=== PATIENT | male | born 1995 | race Hispanic/Latino ===

== ENCOUNTER 2020-07-05 16:10 | Emergency (ER) | payer SELFPAY ==
--- OUTSIDE RECORDS SUMMARY | 2020-07-05 16:13 | XMS REPORT | Continuity of Care Document ---
:1995 Author Organization [facility] t Address [address] [place] [address] Care Team Providers Name Role Phone Rolo Ivory Attending Clinician Problems This patient has no known problems. Allergies, Adverse Reactions, Alerts This patient has no known allergies or adverse reactions. Medications This patient has no known medications. Procedures This patient has no known procedures. Encounters Start End Encounter Admission Attending Care Care Encounter Source Date/Time Date/Time Type Type Clinicians Facility Department ID 2020-05-08 2020-05-08 [id number] 13:23:37 13:43:37 Care [facility] [id number] [place] [id number] [phone] [address] Results This patient has no known results.
--- NOTE | 2020-07-05 17:15 | ER ---
Nurse's Notes [facility] Name: Huseyin Winkler Age: 25 yrs Sex: Male : 1995 Arrival Date: 07/05/2020 Time: 16:13 Bed Waiting Private MD: Diagnosis: Presentation: 07/05 17:00 Chief complaint: Patient states: "i am feeling out of it. I get dizzy when I turn my jd3 head, and I just feel out of it man.". Coronavirus screen: At this time, the client does not indicate any symptoms associated with coronavirus-19. Ebola Screen: Patient negative for fever greater than or equal to 101.5 degrees Fahrenheit, and additional compatible Ebola Virus Disease symptoms. Initial Sepsis Screen: Does the patient meet any 2 criteria? No. Patient's initial sepsis screen is negative. Does the patient have a suspected source of infection? No. Patient's initial sepsis screen is negative. Risk Assessment: Do you want to hurt yourself or someone else? Patient reports no desire to harm self or others. Note pt reports history of A-fib. Onset of symptoms was July 05, 2020. 17:00 Method Of Arrival: Ambulatory jd3 17:00 Acuity: MIAN 3 jd3 17:13 Note pt reported during triage not wanting to wait. pt eloped. jd3 Historical: - Allergies: 17:12 No Known Allergies; jd3 - Home Meds: 17:12 None [Active]; jd3 - PMHx: 17:12 Atrial Fib; jd3 - PSHx: 17:12 None; jd3 - Immunization history:: Adult Immunizations unknown. - Social history:: Smoking status: unknown. Vital Signs: 17:12 BP 120 / 66; Pulse 62; Resp 17 S; Temp 97.6(TE); Pulse Ox 99% on R/A; jd3 ED Course: 16:13 Patient arrived in ED. as 17:03 Triage completed. jd3 17:13 Arm band placed on. jd3 17:13 EKG completed in triage. Results shown to MD. itzel Administered Medications: No medications were administered Outcome: 17:14 Patient left the ED. jd3 Signatures: Crystal Yusuf Jonathon RN RN jdavid
[2020-07-05 17:21] VITALS: BP 120/66; TEMP 97.6; O2SAT 99
--- NOTE | 2020-07-06 17:43 | EKG ---
Test Date: 2020-07-05 Test Time: 17:08:20 Quality Engineering Manager: LAKHWINDER MEASUREMENT RESULTS: Intervals: Rate: 60 KS: 166 QRSD: 90 QT: 358 QTc: 358 [place]: P: 41 KS: 166 QRS: 38 T: 33 INTERPRETIVE STATEMENTS: Normal sinus rhythm with sinus arrhythmia Possible Anterior infarct, age undetermined Abnormal ECG No previous ECG available for comparison Electronically Signed On 07-06-20 17:40:19 CDT by Fernie Matos
== END 2020-07-05 17:14 | disposition left against medical advice (07) ==
LOC: ER 16:10
DX: Z53.21 Procedure and treatment not carried out due to patient leaving prior to being seen by health care provider (principal)
CPT/HCPCS: 93005; 99281

== ENCOUNTER 2020-11-14 02:15 | Emergency (ER) | payer SELFPAY ==
[2020-11-14 03:10] LABS: Absolute Lymphocytes (CBC) 4.6 K/uL (0.7-4.9); Basophils % 0.5 % (0-1.3); Hematocrit 43.1 % (39.6-49.0); Lymphocytes % 47.5 % (15.3-44.8); MPV 8.3 fL (7.6-11.3); RBC Red Blood Cell Count 4.78 M/uL (4.33-5.43)
[2020-11-14 03:11] LABS: Protime INR 1.03
[2020-11-14 03:16] LABS: Urine Blood Negative (Negative); Urine Glucose Negative (Negative); Urine Protein Negative (Negative)
[2020-11-14 03:20] LABS: ALT/SGPT 22 U/L (12-78); AST/SGOT 11 U/L (15-37); Albumin 4.2 g/dL (3.4-5.0); Alkaline Phosphatase 95 U/L (45-117); BUN Blood Urea Nitrogen 13 mg/dL (7-18); Bicarbonate 28 mmol/L (21-32); Bilirubin Direct 0.1 mg/dL (0-0.2); Bilirubin Total 0.3 mg/dL (0.2-1.0); Glucose Level 186 mg/dL (74-106); Potassium 3.3 mmol/L (3.5-5.1); Protein, Total 7.6 g/dL (6.4-8.2); Sodium Level 141 mmol/L (136-145)
[2020-11-14] MEDS ORDERED: NA CHLORIDE 0.9% 1,000 ML ONE (03:20)
[2020-11-14] MEDS ORDERED: DIPHENHYDRAMINE 50 MG/ML VIAL ONE (03:20)
[2020-11-14] MEDS ORDERED: METOCLOPRAMIDE 10 MG/2mL INJ ONE (03:20)
[2020-11-14 03:50] LABS: Barbiturates NEGATIVE (NEGATIVE); Benzodiazepines NEGATIVE (NEGATIVE); Cocaine NEGATIVE (NEGATIVE); METHAMPHETAM NEGATIVE (NEGATIVE); Methadone NEGATIVE (NEGATIVE); Opiates NEGATIVE (NEGATIVE); Phencyclidine NEGATIVE (NEGATIVE); THC Cannibis POSITIVE (NEGATIVE)
[2020-11-14] MEDS ORDERED: KETOROLAC 30 MG/ML INJ ONE (04:28)
--- NOTE | 2020-11-14 05:03 | EDPHYS ---
Physician Documentation [facility] Name: Huseyin Winkler Age: 25 yrs Sex: Male : 1995 Arrival Date: 11/14/2020 Time: 02:18 Bed 7 Private MD: ED Physician Akil Boyer HPI: 11/14 02:51 This 25 yrs old Male presents to ER via Ambulatory with complaints of mh7 Headache, Jaw Pain. 02:51 The patient complains of pain to the Left side of head and face. The patient describes mh7 the headache as intermittent, throbbing. Onset: The symptoms/episode began/occurred 2 day(s) ago. Associated signs and symptoms: Pertinent positives: Photophobia Tooth pain, Pertinent negatives: altered mental status, dizziness, fever, malaise, nausea, neck stiffness, paresthesias, rash, sinus congestion, sinus tenderness, vision changes, vision loss, vomiting, weakness, vertigo. Severity of symptoms: At its worst the pain was moderate, yesterday, in the emergency department the pain is unchanged. Headache History: The patient has had previous headaches and this one is similar to previous episodes. The symptoms are alleviated by nothing. the symptoms are aggravated by lights, Touching tooth or biting down. 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 - Social history:: Smoking status: Patient reports the use of cigarette tobacco products, smokes one-half pack cigarettes per day. ROS: 02:51 Constitutional: Negative for fever, chills, and weight loss, Neck: Negative for injury, mh7 pain, and swelling, Cardiovascular: Negative for chest pain, palpitations, and edema, Respiratory: Negative for shortness of breath, cough, wheezing, and pleuritic chest pain, Abdomen/GI: Negative for abdominal pain, nausea, vomiting, diarrhea, and constipation, Back: Negative for injury and pain, : Negative for injury, bleeding, discharge, and swelling, MS/Extremity: Negative for injury and deformity, Skin: Negative for injury, rash, and discoloration. 02:51 Psych: Negative for depression, anxiety, suicide ideation, homicidal ideation, and hallucinations, Allergy/Immunology: Negative for hives, rash, and allergies, Endocrine: Negative for neck swelling, polydipsia, polyuria, polyphagia, and marked weight changes, Hematologic/Lymphatic: Negative for swollen nodes, abnormal bleeding, and unusual bruising. 02:51 Neuro: Negative for altered mental status, dizziness, gait disturbance, hearing loss, loss of consciousness, numbness, seizure activity, speech changes, syncope, near syncope, tingling, tinnitus, tremor, visual changes, weakness. Exam: 02:51 Head/Face: Normocephalic, atraumatic. Eyes: Pupils equal round and reactive to light, mh7 extra-ocular motions intact. Lids and lashes normal. Conjunctiva and sclera are non-icteric and not injected. Cornea within normal limits. Periorbital areas with no swelling, redness, or edema. 02:51 Neck: Trachea midline, no thyromegaly or masses palpated, and no cervical lymphadenopathy. Supple, full range of motion without nuchal rigidity, or vertebral point tenderness. No Meningismus. Chest/axilla: Normal chest wall appearance and motion. Nontender with no deformity. No lesions are appreciated. Cardiovascular: Regular rate and rhythm with a normal S1 and S2. No gallops, murmurs, or rubs. Normal PMI, no JVD. No pulse deficits. Respiratory: Lungs have equal breath sounds bilaterally, clear to auscultation and percussion. No rales, rhonchi or wheezes noted. No increased work of breathing, no retractions or nasal flaring. Abdomen/GI: Soft, non-tender, with normal bowel sounds. No distension or tympany. No guarding or rebound. No evidence of tenderness throughout. Back: No spinal tenderness. No costovertebral tenderness. Full range of motion. Skin: Warm, dry with normal turgor. Normal color with no rashes, no lesions, and no evidence of cellulitis. MS/ Extremity: Pulses equal, no cyanosis. Neurovascular intact. Full, normal range of motion. Neuro: Awake and alert, GCS 15, oriented to person, place, time, and situation. Cranial nerves II-XII grossly intact. Motor strength 5/5 in all extremities. Sensory grossly intact. Cerebellar exam normal. Normal gait. 02:51 Psych: Awake, alert, with orientation to person, place and time. Behavior, mood, and affect are within normal limits. 02:51 Constitutional: The patient appears in no acute distress, alert, awake, uncomfortable. 02:51 Constitutional: The patient appears anxious. 02:51 ENT: Mouth: is normal, Posterior pharynx: is normal, Dental exam: dental caries, that is mild, diffusely, fractured teeth are noted, not appreciated, gum swelling, not appreciated, pain, that is moderate, specifically in the lower left second bicuspid (#20), Voice: is normal, Breath odor: is normal. Vital Signs: 02:25 BP 148 / 97; Pulse 66; Resp 18; Pulse Ox 99% on R/A; Weight 88.45 kg (R); Height 5 ft. lp1 11 in. (180.34 cm); Pain 10/10; 03:45 BP 118 / 64; Pulse 76; Resp 18; Pulse Ox 99% on R/A; Pain 5/10; wg 04:00 BP 115 / 61; Pulse 70; Resp 18; Pulse Ox 99% on R/A; Pain 2/10; wg 02:25 Body Mass Index 27.20 (88.45 kg, 180.34 cm) lp1 Glenys Coma Score: 04:59 Eye Response: spontaneous(4). Verbal Response: oriented(5). Motor Response: obeys mh7 commands(6). Total: 15. MDM: 04:59 Differential diagnosis: cluster headache, intracerebral hemorrhage, migraine, tension mh7 headache. Data reviewed: vital signs, nurses notes, lab test result(s), CBC, electrolytes, urinalysis, urine drug screen, EKG, radiologic studies, CT scan. Data interpreted: Pulse oximetry: on room air is 99 %. Interpretation: normal. Counseling: I had a detailed discussion with the patient and/or guardian regarding: the historical points, exam findings, and any diagnostic results supporting the discharge/admit diagnosis, lab results, radiology results, the need for outpatient follow up, a dentist, an client experience manager, to return to the emergency department if symptoms worsen or persist or if there are any questions or concerns that arise at home. Response to treatment: the patient's symptoms have resolved after treatment, the patient's blood pressure is in an acceptable range, mental status has returned to baseline, the patient no longer shows bradycardia, the patient is not short of breath, the patient is not tachycardic, the patient's pain is gone, the patient's temperature has normalized. 05:02 Patient medically screened. [facility] 11/14 02:50 Order name: CBC with Diff; Complete Time: 03:36 [facility] 11/14 02:50 Order name: Basic Metabolic Panel; Complete Time: 03:36 [facility] 11/14 02:50 Order name: LFT's; Complete Time: 03:36 [facility] 11/14 02:50 Order name: Protime (+inr); Complete Time: 03:36 [facility] 11/14 02:50 Order name: Ptt, Activated; Complete Time: 03:36 [facility] 11/14 02:50 Order name: UDS; Complete Time: 03:55 [facility] 11/14 02:50 Order name: EKG; Complete Time: 02:50 [facility] 11/14 02:50 Order name: CT Head Brain wo Cont [facility] 11/14 02:50 Order name: CT Facial Bones W/O Con [facility] 11/14 03:16 Order name: Urine Dipstick-Ancillary; Complete Time: 03:36 [facility] 11/14 02:50 Order name: Urine Dipstick-Ancillary (obtain specimen); Complete Time: 03:09 [facility] 11/14 02:50 Order name: EKG - Nurse/Tech; Complete Time: 03:09 [facility] Administered Medications: 03:04 Drug: Reglan (metoCLOPramide) 10 mg Route: IVP; Site: right antecubital; cw2 05:17 Follow up: Response: No adverse reaction ea 03:04 Drug: Benadryl (diphenhydrAMINE) 50 mg Route: IVP; Site: right antecubital; cw2 05:17 Follow up: Response: No adverse reaction ea 03:05 Drug: NS 0.9% 1000 ml Route: IV; Rate: 1000 ml; Site: right antecubital; cw2 05:17 Follow up: Response: No adverse reaction; IV Status: Completed infusion; IV Intake: ea 1000ml 04:04 Drug: Ketorolac 30 mg Route: IVP; Site: right antecubital; cw2 05:17 Follow up: Response: No adverse reaction ea Disposition Summary: 11/14/20 05:02 Discharge Ordered Location: Home [facility] Problem: new [facility] Symptoms: have improved [facility] Condition: Stable [facility] Diagnosis - Headache [facility] - Dental caries, unspecified [facility] Followup: [facility] - With: Private Physician - When: 1 - 2 days - Reason: Worsening of condition, Recheck today's complaints, Continuance of care, Re-evaluation by your physician Followup: [facility] - With: Brandan Lockhart DDS - When: 1 - 2 days - Reason: Worsening of condition, Recheck today's complaints Discharge Instructions: - Discharge Summary Sheet [facility] - Dental Caries, Adult [facility] - General Headache Without Cause [facility] - Dental Pain, [id number] [facility] Forms: - Medication Reconciliation Form [facility] - Thank You Letter [facility] - Antibiotic Education [facility] - Prescription Opioid Use [facility] Prescriptions: - ketorolac 10 mg Oral tablet - take 1 tablet by ORAL route every 6 hours As needed not to exceed 40 mg in [facility] 24hrs; 12 tablet; Refills: 0, Product Selection Permitted - Clindamycin HCl 300 mg Oral Capsule - take 1 capsule by ORAL route every 8 hours for 7 days; 21 capsule; Refills: 0, [facility] Product Selection Permitted Signatures: Dispatcher [employer] Zahira Lugo RN RN 1 Akil Boyer MD MD 7 Mansoor Schreiber RN wg Williams, Christopher 2 Jennifer Robertson RN Corrections: (The following items were deleted from the chart) 05:06 02:29 Allergies: No Known Allergies; lp1
--- NOTE | 2020-11-14 05:03 | ER ---
Nurse's Notes [facility] Name: Huseyin Winkler Age: 25 yrs Sex: Male : 1995 Arrival Date: 11/14/2020 Time: 02:18 Bed 7 Private MD: Diagnosis: Headache;Dental caries, unspecified Presentation: 11/14 02:25 Chief complaint: Patient states: Severe pain to left side of face that began 1 hour lp1 ago; Reports painful tooth x2 to top left side, and x1 to bottom left side x 2 days; Took Tylenol x3 about 2200 tonight. Coronavirus screen: At this time, the client does not indicate any symptoms associated with coronavirus-19. Ebola Screen: No symptoms or risks identified at this time. Initial Sepsis Screen: Does the patient meet any 2 criteria? No. Patient's initial sepsis screen is negative. Does the patient have a suspected source of infection? No. Patient's initial sepsis screen is negative. Risk Assessment: Do you want to hurt yourself or someone else? Patient reports no desire to harm self or others. Onset of symptoms was November 14, 2020. 02:25 Method Of Arrival: Ambulatory lp1 02:25 Acuity: MIAN 4 lp1 Triage Assessment: 02:33 Headache History: The patient has had previous headaches and this one is similar to wg previous episodes. General: Appears distressed, well developed, Behavior is cooperative, restless. Pain: Complains of pain in Left side of face/head and several teeth. Pain currently is 10 out of 10 on a pain scale. Pain: Quality of pain is described as sharp, Pain began 1 hour ago. Aggravated by eating, increased activity, Also complains of photophobia, sleeplessness. EENT: Reports pain Started in his mouth 2 days ago and progressed into the left side of his jaw/face. photophobia since has gotten worse over the past couple hours. Neuro: No deficits noted. Cardiovascular: No deficits noted. Respiratory: No deficits noted. GI: No deficits noted. : No deficits noted. Derm: No deficits noted. Musculoskeletal: No deficits noted. 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 - Social history:: Smoking status: Patient reports the use of cigarette tobacco products, smokes one-half pack cigarettes per day. Screenin:29 Abuse screen: Denies threats or abuse. Denies injuries from another. Nutritional lp1 screening: No deficits noted. Tuberculosis screening: No symptoms or risk factors identified. Fall Risk None identified. Assessment: 04:08 Reassessment: Patient appears in no apparent distress at this time. Patient and/or wg family updated on plan of care and expected duration. Pain level reassessed. Patient is alert, oriented x 3, equal unlabored respirations, skin warm/dry/pink. Pt still c/o of mouth pain. aware. Will order Toradol. 05:16 Reassessment: Patient and/or family updated on plan of care and expected duration. Pain ea level reassessed. Patient is alert, oriented x 3, equal unlabored respirations, skin warm/dry/pink. Discharge instruction given to patient verbalized the understanding of instruction. Pt left ED ambulatory tolerating well. Vital Signs: 02:25 BP 148 / 97; Pulse 66; Resp 18; Pulse Ox 99% on R/A; Weight 88.45 kg (R); Height 5 ft. lp1 11 in. (180.34 cm); Pain 10/10; 03:45 BP 118 / 64; Pulse 76; Resp 18; Pulse Ox 99% on R/A; Pain 5/10; wg 04:00 BP 115 / 61; Pulse 70; Resp 18; Pulse Ox 99% on R/A; Pain 2/10; wg 02:25 Body Mass Index 27.20 (88.45 kg, 180.34 cm) lp1 Glenys Coma Score: 04:59 Eye Response: spontaneous(4). Verbal Response: oriented(5). Motor Response: obeys mh7 commands(6). Total: 15. ED Course: 02:18 Patient arrived in ED. bp1 02:23 Akil Boyer MD is Attending Physician. mh7 02:29 Triage completed. lp1 02:29 Arm band placed on. lp1 02:29 Patient has correct armband on for positive identification. lp1 02:36 No provider procedures requiring assistance completed. Inserted saline lock: 20 gauge wg in right antecubital area, using aseptic technique. 03:26 CT Head Brain wo Cont In Process Unspecified. EDMS 03:26 CT Facial Bones W/O Con In Process Unspecified. EDMS 05:01 Brandan Lockhart DDS is Referral Physician. [facility] 05:14 IV discontinued, intact, bleeding controlled, No redness/swelling at site. Pressure ea dressing applied. Administered Medications: 03:04 Drug: Reglan (metoCLOPramide) 10 mg Route: IVP; Site: right antecubital; cw2 05:17 Follow up: Response: No adverse reaction ea 03:04 Drug: Benadryl (diphenhydrAMINE) 50 mg Route: IVP; Site: right antecubital; cw2 05:17 Follow up: Response: No adverse reaction ea 03:05 Drug: NS 0.9% 1000 ml Route: IV; Rate: 1000 ml; Site: right antecubital; cw2 05:17 Follow up: Response: No adverse reaction; IV Status: Completed infusion; IV Intake: ea 1000ml 04:04 Drug: Ketorolac 30 mg Route: IVP; Site: right antecubital; cw2 05:17 Follow up: Response: No adverse reaction ea Intake: 05:17 IV: 1000ml; Total: 1000ml. ea Outcome: 05:02 Discharge ordered by . [facility] 05:13 Discharged to home ambulatory, with family. ea 05:13 Condition: stable 05:13 Discharge instructions given to patient, Instructed on discharge instructions, follow up and referral plans. medication usage, Demonstrated understanding of instructions, follow-up care, medications. 05:17 Patient left the ED. ea Signatures: Dispatcher [employer] EDCO Zahira Watts RN RN lp1 Jennifer Robertson RN RN Marli Casanova Maurice, MD MD mh7 Gamba, Liam, RN wg Williams, Christopher cw2 Corrections: (The following items were deleted from the chart) 05:06 02:29 Allergies: No Known Allergies; cathy oliveros
[2020-11-14 05:23] VITALS: O2SAT 99
[2020-11-14 05:26] VITALS: BP 115/61
--- NOTE | 2020-11-15 10:34 | RAD REPORT ---
EXAM DESCRIPTION: CT - Head Brain Wo Cont - 11/14/2020 7:18 am COMPARISON: None. INDIC CLINICAL HISTORY: ATION: [facility] MAIN HEADACHE TECHNIQUE: Axial images were obtained from skull base to vertex without intravenous contrast. Imag es viewed on bone and brain windows. Multiplanar reformats were performed. Automated exposure contr ol was utilized on this examination as a dose lowering technique. FINDINGS: Brain parenchyma, ventricles, dura, meninges, and extra-axial spaces: Ventricles and sulci are normal. No abnormal attenuation of brain parenchyma is present. No acute intracranial hemor rhage or abnormal extra-axial fluid collections are present. Vascular structures: No hyperdense arteries or veins. Calvarium, mastoid air cells, paranasal sinuses and orbits: The calvarium is normal. The mastoid air cells are clear. Visualized paranasal sinuses are unremarkable. Orbital structures are unremarkable. EXAM DESCRIPTION: CT Maxillofacial COMPARISON: None. CLINICAL HISTORY: [facility] MAIN HEADACHE TECHNIQUE: High resolution axial CT images are obtained through the maxillofacial bones without intr avenous contrast followed by multiplanar reformats. Automated exposure control was utilized on this e xamination as a dose lowering technique. FINDINGS: Maxillofacial bones and mandible: No evidence for fracture or destructive osseous process. Orbital structures: Unremarkable. Paranasal sinuses: Clear. Soft tissues: Normal. Visualized intracranial structures: The visualized structures of the skull base are normal. Visualize d intracranial structures are normal. HEAD IMPRESSION: No acute intracranial abnormality. MAXILLOFACIAL IMPRESSION: No acute maxillofacial findings Electronically signed by: Cole Vargas MD 11/14/2020 3:38 AM CDT Due to temporary technical issues with the PACS/Fluency reporting system, reports are being signed by the in house radiologists without review as a courtesy to insure prompt reporting. The interpreting radiologist is fully responsible for the content of the report.
--- NOTE | 2020-11-15 10:38 | RAD REPORT ---
EXAM DESCRIPTION: CT - Facial Bones W/ Mpr - 11/14/2020 7:18 am COMPARISON: None. CLINICAL HISTORY: [facility] MAIN HEADACHE TECHNIQUE: Axial images were obtained from skull base to vertex without intravenous contrast. Imag es viewed on bone and brain windows. Multiplanar reformats were performed. Automated exposure contr ol was utilized on this examination as a dose lowering technique. FINDINGS: Brain parenchyma, ventricles, dura, meninges, and extra-axial spaces: Ventricles and sulci are normal. No abnormal attenuation of brain parenchyma is present. No acute intracranial hemor rhage or abnormal extra-axial fluid collections are present. Vascular structures: No hyperdense arteries or veins. Calvarium, mastoid air cells, paranasal sinuses and orbits: The calvarium is normal. The mastoid air cells are clear. Visualized paranasal sinuses are unremarkable. Orbital structures are unremarkable. EXAM DESCRIPTION: CT Maxillofacial COMPARISON: None. CLINICAL HISTORY: [facility] MAIN HEADACHE TECHNIQUE: High resolution axial CT images are obtained through the maxillofacial bones without intr avenous contrast followed by multiplanar reformats. Automated exposure control was utilized on this e xamination as a dose lowering technique. FINDINGS: Maxillofacial bones and mandible: No evidence for fracture or destructive osseous process. Orbital structures: Unremarkable. Paranasal sinuses: Clear. Soft tissues: Normal. Visualized intracranial structures: The visualized structures of the skull base are normal. Visualize d intracranial structures are normal. HEAD IMPRESSION: No acute intracranial abnormality. MAXILLOFACIAL IMPRESSION: No acute maxillofacial findings Electronically signed by: Cole Vargas MD 11/14/2020 3:38 AM CDT Due to temporary technical issues with the PACS/Fluency reporting system, reports are being signed by the in house radiologists without review as a courtesy to insure prompt reporting. The interpreting radiologist is fully responsible for the content of the report. .
== END 2020-11-14 05:17 | disposition home or self-care (01) ==
LOC: ER 02:15
DX: K02.9 Dental caries, unspecified (principal); F17.210 Nicotine dependence, cigarettes, uncomplicated; Z88.0 Allergy status to penicillin
CPT/HCPCS: 36415; 70450; 70486; 76377; 80048; 80076; 80307; 81003; 85025; 85610; 85730; 93005; 96361; 96374; 96375; 99283; J1200; J2765; J7030

== ENCOUNTER 2021-01-30 07:54 | Emergency (ER) | payer OTHER, SELFPAY ==
--- OUTSIDE RECORDS SUMMARY | 2021-01-30 07:56 | XMS REPORT | Continuity of Care Document ---
:1995 Author Organization [facility] t Address [address] [place] [address] Care Team Providers Name Role Phone Pcp, Does Not Have A Primary Care Physician JUNITO, A Attending Clinician Unavailable Doctor Unassigned, Name Attending Clinician Unavailable Lab, Fam Pob I Attending Clinician Unavailable Hardy CASPER Attending Clinician HARDY Attending Clinician Unavailable Colleen REMELT WORKER, J Attending Clinician Wood CASPER Attending Clinician WOOD Attending Clinician Unavailable Provider, Urgent Care Attending Clinician Unavailable Unknown Attending Clinician Unavailable Quyen HSIEH Attending Clinician UNKNOWN Attending Clinician Unavailable GREEN Attending Clinician Unavailable Payers Payer Name Policy Type Policy Number Effective Date Expiration Date [facility] [id number] 2020 GLOBAL 00:00:00 Problems Condition Condition Condition Status Onset Resolution Last Treating Co mments Source Name Details Category Date Date Treatment Clinician Date No known No known Disease Unive rs active active ity of problems problems [facility] Allergies, Adverse Reactions, Alerts Allergy Allergy Status Severity Reaction(s) Onset Inactive Treating Comm ents Source Name Type Date Date Clinician PENICILL DRUG Active High Anaphylaxis Uni vers IN INGREDI 3-13 ity of 00:00: [place] [id number] Medical Branch Penicill Propensi Active Anaphylaxis U nivers in ty to 3-13 ity of adverse 00:00: [place] reaction 00 Medical s [place] NO KNOWN Drug Active Univers ALLERGIE Class ity of S [facility] Social History Social Habit Start Date Stop Date Quantity Comments Source History of tobacco Cigarette Smoker University of use [facility] Exposure to Yes University of SARS-CoV-2 (event) [facility] Cigarettes smoked 2020-07-26 2020-07-26 Univers ity of current (pack per 00:00:00 00:00:00 [facility] [place] [facility] ) - Reported Branch Cigarette 2020-07-26 2020-07-26 University of pack-years 00:00:00 00:00:00 [facility] Tobacco use and 2020-07-26 2020-07-26 Never used Universit y of exposure 00:00:00 00:00:00 [facility] Alcohol intake 2020-07-26 2020-07-26 Current drinker Unive rsity of 00:00:00 00:00:00 of alcohol [facility] (finding) [place] Sex Ass[birth year] At [birth year] Universit y of 00:00:00 00:00:00 [facility] Smoking Status Start Date Stop Date Source Current every day smoker 2020-07-26 00:00:00 Uni versity of [facility] Medications Ordered Filled Start Stop Current Ordering Indication Dosage Frequency Signature Comments Components Source Medication Medication Date Date Medication? Clinician (SIG) Name Name ibuprofen 2020- No [id number] 800mg Take 1 Univers 800 mg 07-26-11 tablet by ity of tablet 00:00: 04:59 mouth [place] 00 :00 every 6 Medical (six) Branch hours for 10 days. ibuprofen 2020- No [id number] 800mg Take 1 Univers 800 mg --11 tablet by ity of tablet 00:00: 04:59 mouth [place] 00 :00 every 6 Medical (six) Branch hours for 10 days. ibuprofen 2020- No [id number] 800mg Take 1 Univers 800 mg - 06-11 tablet by ity of tablet 00:00: 04:59 mouth [place] 00 :00 every 6 Medical (six) Branch hours for 10 days. acetaminoph 2020- No [id number] 1{tbl} Take 1 U nivers en-codeine 07-26-06 tablet by ity of (TYLENOL-CO 00:[place] 04[place] DE[place] #3[place] 00 :00 every 6 Medical 300-30 mg (six) Branch tablet hours as needed for Pain (scale 7-10) for up to 5 days. Indication s: acute pain acetaminoph 2020- No 4647 1{tbl} Take 1 U nivers en-codeine 07-26 tablet by ity of (TYLENOL-CO 00:[place] 04:[place] DE[place] #3[place] 00 :00 every 6 Medical 300-30 mg (six) Branch tablet hours as needed for Pain (scale 7-10) for up to 5 days. Indication s: acute pain acetaminoph 2020- No 4647 1{tbl} Take 1 U nivers en-codeine 07-26 tablet by ity of (TYLENOL-CO 00:[place]: 04:[place] DEINE #3[place] 00 :00 every 6 Medical 300-30 mg (six) Branch tablet hours as needed for Pain (scale 7-10) for up to 5 days. Indication s: acute pain azithromyci Yes [id number] 250mg Take 1 Univers n 5-16 tablet by ity of (ZITHROMAX 00:00: mouth [place] Z-ZITA) 250 00 SEE-INSTRU Med ical mg tablet CTIONS. Branch Please dispense a z pack azithromyci Yes [id number] 250mg Take 1 Univers n 5-16 tablet by ity of (ZITHROMAX 00:00: mouth [place] Z-ZITA) 250 00 SEE-INSTRU Med ical mg tablet CTIONS. Branch Please dispense a z pack azithromyci Yes [id number] 250mg Take 1 Univers n 5-16 tablet by ity of (ZITHROMAX 00:00: mouth [place] Z-ZITA) 250 00 SEE-INSTRU Med ical mg tablet CTIONS. Branch Please dispense a z pack azithromyci Yes [id number] 250mg Take 1 Univers n 5-16 tablet by ity of (ZITHROMAX 00:00: mouth [place] Z-ZITA) 250 00 SEE-INSTRU Med ical mg tablet CTIONS. Branch Please dispense a z pack azithromyci Yes [id number] 250mg Take 1 Univers n 5-16 tablet by ity of (ZITHROMAX 00:00: mouth [place] Z-ZITA) 250 00 SEE-INSTRU Med ical mg tablet CTIONS. Branch Please dispense a z pack azithromyci 2020- Yes [id number] 250mg Take 1 Univers n 5-16 tablet by ity of (ZITHROMAX 00:00: mouth [place] Z-ZITA) 250 00 SEE-INSTRU Med ical mg tablet CTIONS. Branch Please dispense a z pack azithromyci 2020- Yes [id number] 250mg Take 1 Univers n 5-16 tablet by ity of (ZITHROMAX 00:00: mouth [place] Z-ZITA) 250 00 SEE-INSTRU Med ical mg tablet CTIONS. Branch Please dispense a z pack azithromyci Yes [id number] 250mg Take 1 Univers n 5-16 tablet by ity of (ZITHROMAX 00:00: mouth [place] Z-ZITA) 250 00 SEE-INSTRU Med ical mg tablet CTIONS. Branch Please dispense a z pack azithromyci Yes [id number] 250mg Take 1 Univers n 5-16 tablet by ity of (ZITHROMAX 00:00: mouth [place] Z-ZITA) 250 00 SEE-INSTRU Med ical mg tablet CTIONS. Branch Please dispense a z pack azithromyci Yes [id number] 250mg Take 1 Univers n 5-16 tablet by ity of (ZITHROMAX 00:00: [facility] Z-ZITA) 250 00 SEE-INSTRU Med ical mg tablet CTIONS. Branch Please dispense a z pack azithromyci Yes [id number] 250mg Take 1 Univers n 5-16 tablet by ity of (ZITHROMAX 00:00: mouth [place] Z-ZITA) 250 00 SEE-INSTRU Med ical mg tablet CTIONS. Branch Please dispense a z pack ibuprofen 2020- No [id number] 600mg Take 1 Univers 600 mg 3-13 -19 tablet by ity of tablet 00:00: 04:59 mouth [place] 00 :00 every 6 Medical (six) Branch hours as needed for Pain (scale 4-6) for up to 5 days. No known No Univers medications ity of [place] [facility] Vital Signs Vital Name Observation Time Observation Value Comments Source Body height 2020-07-26 18:28:00 180.3 cm Universi ty [facility] [place] [facility] Body weight 2020-07-26 18:28:00 86.183 kg [facility]i ty [facility] [place] [facility] BMI 2020-07-26 18:28:00 26.50 kg/m2 [facility]i ty [facility] [place] [facility] Oxygen saturation in 2020-07-26 18:28:00 96 /min University of Arterial blood by [place] [employer] [facility] Pulse oximetry Branch Systolic blood 2020-07-26 18:28:00 129 mm[Hg] Univer sity of pressure [place] [facility] Diastolic blood 2020-07-26 18:28:00 71 mm[Hg] Unive rsity of pressure [place] [facility] Heart rate 2020-07-26 18:28:00 60 /min Universi ty of [place] [facility] Body temperature 2020-07-26 18:28:00 36.44 Lynn Univ ersity of [place] [facility] Respiratory rate 2020-07-26 18:28:00 12 /min Univ ersity of [place] [facility] Systolic blood 2020-07-11 19:46:00 119 mm[Hg] Univer sity of pressure [place] [facility] Diastolic blood 2020-07-11 19:46:00 71 mm[Hg] Unive rsity of pressure [place] [facility] Heart rate 2020-07-11 19:46:00 74 /min Universi ty [facility] [place] [facility] Body temperature 2020-07-11 19:46:00 36.89 [place] Univ ersity of [place] [facility] Respiratory rate 2020-07-11 19:46:00 18 /min Univ ersity of [place] [facility] Body height 2020-07-11 19:46:00 180.3 cm Universi ty of [place] [facility] Body weight 2020-07-11 19:46:00 86.807 kg [facility]i [facility] [place] [facility] BMI 2020-07-11 19:46:00 26.69 kg/m2 Universi ty [facility] [place] [facility] Oxygen saturation in 2020-07-11 19:46:00 98 /min University of Arterial blood by [place] [facility] [facility] Pulse oximetry Branch Systolic blood 2020-05-08 19:28:00 126 mm[Hg] Univer sity of pressure [place] [facility] Diastolic blood 2020-05-08 19:28:00 79 mm[Hg] Unive rsity of pressure [place] [facility] Heart rate 2020-05-08 19:28:00 88 /min Universi ty of [place] [facility] Body temperature 2020-05-08 19:28:00 37.28 Lynn Univ ersity of [place] [facility] Respiratory rate 2020-05-08 19:28:00 18 /min Univ ersity of [place] [facility] Body height 2020-05-08 19:28:00 180.3 cm Universi ty [facility] [place] [facility] Body weight 2020-05-08 19:28:00 87.544 kg Universi ty of [place] [facility] BMI 2020-05-08 19:28:00 26.92 kg/m2 Universi ty [facility] [place] [facility] Oxygen saturation in 2020-05-08 19:28:00 99 /min University of Arterial blood by [facility] Pulse oximetry Branch Systolic blood 2020-05-08 19:28:00 126 mm[Hg] Univer sity of [facility] Medical Branch Diastolic blood 2020-05-08 19:28:00 79 mm[Hg] Unive rsity of pressure [place] [facility] Heart rate 2020-05-08 19:28:00 88 /min Universi ty of [place] [facility] Body temperature 2020-05-08 19:28:00 37.28 Lynn Univ ersity of [place] [facility] Respiratory rate 2020-05-08 19:28:00 18 /min Univ ersity of [place] [facility] Body height 2020-05-08 19:28:00 180.3 cm Universi ty [facility] [place] [facility] Body weight 2020-05-08 19:28:00 87.544 kg [facility]i ty [facility] [place] [facility] BMI 2020-05-08 19:28:00 26.92 kg/m2 [facility]i ty [facility] [place] [facility] Oxygen saturation in 2020-05-08 19:28:00 99 /min University of Arterial blood by [facility] Pulse oximetry Branch Procedures Procedure Date / Time Performed Performing Clinician Sourc e POCT GRP A STREP 2020-07-11 19:57:00 Chad Mccarthy [facility] [place] (MOLECULAR) Medical Branch ASSIGNMENT OF BENEFITS 2020-07-11 19:28:40 Doctor Unassigned, No University [facility] Medical Branch Encounters Start End Encounter Admission Attending Care Care Encounter Source Date/Time Date/Time Type Type Clinicians Facility Department ID 2020-11-04 2020-11-04 Outpatient R JUNITO, [facility] [id number] Univers 13:30:00 13:30:00 SHAI [id number] ity [facility] [place] 2020-11-04 2020-11-04 Outpatient R JUNITO [facility] [id number] Univers 13:30:00 13:30:00 SHAI ity [facility] [place] 2020-10-22 2020-10-22 Letter Doctor RAINA [id number] Univers 00:00:00 00:00:00 (Out) Unassigned, GOMEZ [id number] ity of [place] [facility] [id number] [place] as [phone] [address] 2020-10-22 2020-10-22 Letter Doctor RAINA [id number] Univers 00:00:00 00:00:00 (Out) Unassigned, GOMEZ [id number] ity of [place] [facility] [id number] [place] as [phone] [address] 2020-09-19 2020-09-19 Laboratory Lab, Adc Fam Pob I [facility] 1.2. [id number] Univers 16:47:20 17:07:20 Only Chad Mccarthy [facility] [id number] 10 ity of [place] [id number] [place] as Professio [phone] [address] Office Building [address] 2020-09-19 2020-09-19 Outpatient R [facility] [id number] Univers 16:40:00 16:40:00 [id number] ity [facility] [place] 2020-09-19 2020-09-19 Outpatient R TRESSAOCCRISTIANA [facility] [id number] Univers 16:40:00 16:40:00 , CHAD ity [facility] [place] 2020-09-10 2020-09-10 [facility] [id number] Univers 00:00:00 [facility]:00:00 [facility] [id number] ity of [place] [id number] [place] as Professio [phone] Oh dical nal [address] [place] [address] Office [address] One 2020-09-09 2020-09-09 Laboratory Lab, Adc Fam Pob I [facility] 1.2. 840.114 [id number] Univers 20:00:48 20:20:48 Only Rox Muir [facility] [id number] ity of [place] [id number] [place] as Professio [phone] [address] Office [facility] One 2020-09-09 2020-09-09 Outpatient R [facility] [id number] Univers 20:00:00 20:00:00 [id number] ity [facility] [place] 2020-09-09 2020-09-09 Outpatient R WOOD [facility] [id number] Univers 20:00:00 20:00:00 [facility] 2020-07-26 2020-07-26 Urgent Provider, [facility] [id number] Univers 13:26:34 13:41:05 Care Unknown, [facility] [id number] ity of [place] [id number] [place] Professio [phone] [address] Office [facility] One 2020-07-26 2020-07-26 Outpatient R [facility] [id number] Univers 13:40:00 13:40:00 [id number] ity [facility] [place] 2020-07-26 2020-07-26 Outpatient R GAYLA, [facility] [id number] Univers 13:40:00 13:40:00 ATTENDING ity [facility] [place] 2020-07-11 2020-07-11 Urgent Provider, [facility] [id number] Univers 14:29:52 15:27:13 Care Mima Ohara [facility] [id number] ity of [place] [id number] [place] as Professio [phone] Oh [address] Office Building One 2020-07-11 2020-07-11 Outpatient R [facility] [id number] Univers 14:40:00 14:40:00 [id number] [facility] 2020-07-11 2020-07-11 Outpatient R [facility] [id number] Univers 14:40:00 14:40:[facility] 2020-07-11 2020-07-11 Orders Doctor RAINA [id number] Univers 00:00:00 00:00:00 Only Unassigned, GOMEZ [id number] ity of [place] [facility] [id number] [place] as [phone] [address] 2020-05-08 2020-05-08 Urgent [facility] [id number] 13:23:37 13:43:37 Care Tesha J [facility] [id number] [place] [id number] Professio [phone] [place] [address] [address] 2020-05-08 2020-05-08 Urgent Tesha Macias [facility] 1.2.840 .114 [id number] Univers 13:23:37 13:43:[address] [facility] [id number] ity of [place] [id number] [place] as Professio [phone] Oh dical [address] Office Building One 2020-05-08 2020-05-08 [facility] [id number] Univers 13:00:00 13:00:00 [facility] Results Test Description Test Time Test Comments Results Result Comments Source POCT GRP A STREP (MOLECULAR) 2020-07-11 20:06:00 Test Item Value Reference Range Interpretation Comme nts POCT GP A STREP (test code = 10148-1) Negative Negative - Negat henry Lab Interpretation (test code = 73944-9) Normal [facility]
--- NOTE | 2021-01-30 08:50 | EDPHYS ---
Physician Documentation [facility] Name: Huseyin Winkler Age: 25 yrs Sex: Male : 1995 Arrival Date: 01/30/2021 Time: 07:56 Bed 12 Private MD: ED Physician Theodore Burden HPI: 01/30 09:13 This 25 yrs old Male presents to ER via Ambulatory with complaints of kb Toothache. 09:13 The patient presents with pain. The problem is located in the all teeth on left side of kb mouth. Onset: The symptoms/episode began/occurred last night. Duration: The symptoms are continuous. Modifying factors: The symptoms are alleviated by nothing, the symptoms are aggravated by nothing. Associated signs and symptoms: Pertinent positives: pain, swelling. Severity of symptoms: At their worst the symptoms were moderate, in the emergency department the symptoms are unchanged. The patient has not experienced similar symptoms in the past. The patient has not recently seen a physician. Pt reports pain to upper and lower left teeth that started last night. 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 - Social history:: Smoking status: Patient reports the use of cigarette tobacco products, <1/2 ppd. ROS: 09:11 Constitutional: Negative for fever, chills, and weight loss. kb 09:11 ENT: Positive for Teeth pain 09:11 All other systems are negative. Exam: 09:11 Constitutional: This is a well developed, well nourished patient who is awake, alert, kb and in no acute distress. Head/Face: Normocephalic, atraumatic. Respiratory: Respirations even and unlabored. No increased work of breathing, no retractions or nasal flaring. Skin: Warm, dry with normal turgor. Normal color. MS/ Extremity: Pulses equal, no cyanosis. Neurovascular intact. Full, normal range of motion. Neuro: Awake and alert, GCS 15, oriented to person, place, time, and situation. Moves all extremities. Normal gait. Psych: Awake, alert, with orientation to person, place and time. Behavior, mood, and affect are within normal limits. 09:11 ENT: Dental exam: gum swelling, that is mild, specifically in the upper left first molar (#14), upper left second molar (#15), upper left third molar (#16), lower left third molar (#17), lower left second molar (#18) and lower left first molar (#19), pain, that is moderate, specifically in the upper left cuspid (#11), upper left first bicuspid (#12), upper left second bicuspid (#13), upper left first molar (#14), upper left second molar (#15), upper left third molar (#16), lower left third molar (#17), lower left first molar (#19), lower left second bicuspid (#20) and lower left first bicuspid (#21). Vital Signs: 08:54 BP 135 / 84; Pulse 77; Resp 16; Temp 98.0(TE); Pulse Ox 100% on R/A; Weight 86.18 kg; ss Height 5 ft. 11 in. (180.34 cm); 08:54 Body Mass Index 26.50 (86.18 kg, 180.34 cm) ss MDM: 08:48 Patient medically screened. kb 09:02 Data reviewed: vital signs, nurses notes. Data interpreted: Pulse oximetry: on room air kb is 100 %. Interpretation: normal. Counseling: I had a detailed discussion with the patient and/or guardian regarding: the historical points, exam findings, and any diagnostic results supporting the discharge/admit diagnosis, lab results, radiology results, the need for outpatient follow up, a family practitioner, to return to the emergency department if symptoms worsen or persist or if there are any questions or concerns that arise at home. Administered Medications: 09:00 Drug: Ketorolac 60 mg Route: IM; Site: left gluteus; dw 09:15 Follow up: Response: No adverse reaction ss 09:00 Drug: Clindamycin 300 mg Route: PO; dw 10:10 Follow up: Response: No adverse reaction ss Disposition: 09:19 Co-signature as Attending Physician, Theodore Burden MD I agree with the assessment and rn plan of care. Attestation: The patient's history, exam findings, diagnostics, and a summary of any interventions or procedures was reviewed in detail with Theodore Burden MD. Disposition Summary: 01/30/21 08:49 Discharge Ordered Location: Home kb Condition: Stable kb Diagnosis - Other specified disorders of teeth and supporting structures kb Followup: kb - With: Private Physician - When: 2 - 3 days - Reason: Recheck today's complaints, Continuance of care, Re-evaluation by your physician Followup: kb - With: Emergency Department - When: As needed - Reason: Worsening of condition Discharge Instructions: - Discharge Summary Sheet kb - Dental Pain, [id number]-my-[id number] kb - Dental Abscess, Nmzb-vb-[id number] kb Forms: - Medication Reconciliation Form kb - Thank You Letter kb - Antibiotic Education kb - Prescription Opioid Use kb Prescriptions: - Clindamycin HCl 300 mg Oral Capsule - take 1 capsule by ORAL route every 6 hours for 10 days; 40 capsule; Refills: 0, kb Product Selection Permitted Signatures: Migdalia Burr FNP-C FNP-Lisa Leonardo, RN RN Theodore Kennedy MD MD rn Smirch, Shelby, RN RN ss
[2021-01-30] MEDS ORDERED: KETOROLAC 30 MG/ML INJ ONE (08:54)
--- NOTE | 2021-01-30 09:19 | ER ---
Nurse's Notes [facility] Name: Huseyin Winkler Age: 25 yrs Sex: Male : 1995 Arrival Date: 01/30/2021 Time: 07:56 Bed 12 Private MD: Diagnosis: Other specified disorders of teeth and supporting structures Presentation: 01/30 08:54 Chief complaint: Patient states: Dental pain that began last night. Coronavirus screen: ss Client denies travel out of the [place] in the last 14 days. Ebola Screen: Patient denies exposure to infectious person. Patient denies travel to an Ebola-affected area in the 21 days before illness onset. Initial Sepsis Screen: Does the patient meet any 2 criteria? No. Patient's initial sepsis screen is negative. Does the patient have a suspected source of infection? No. Patient's initial sepsis screen is negative. Risk Assessment: Do you want to hurt yourself or someone else? Patient reports no desire to harm self or others. Onset of symptoms was January 29, 2021. 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 - Social history:: Smoking status: Patient reports the use of cigarette tobacco products, <1/2 ppd. Screenin:15 Abuse screen: Denies threats or abuse. Denies injuries from another. Nutritional ss screening: No deficits noted. Tuberculosis screening: Never had TB. Fall Risk None identified. Assessment: 09:03 General: Appears uncomfortable, Behavior is calm, cooperative. Pain: Pain currently is dw 10 out of 10 on a pain scale. Quality of pain is described as throbbing. Neuro: No deficits noted. Cardiovascular: No deficits noted. Respiratory: No deficits noted. GI: No deficits noted. : No deficits noted. EENT: No deficits noted. Derm: No deficits noted. Musculoskeletal: No deficits noted. 09:06 Pain: Pain began suddenly, last night Alleviated by nothing. dw Vital Signs: 08:54 BP 135 / 84; Pulse 77; Resp 16; Temp 98.0(TE); Pulse Ox 100% on R/A; Weight 86.18 kg; ss Height 5 ft. 11 in. (180.34 cm); 08:54 Body Mass Index 26.50 (86.18 kg, 180.34 cm) ED Course: 07:56 Patient arrived in ED. as 08:48 Migdalia Burr FNP-C is [facility] kb 08:48 Theodore Burden MD is Attending Physician. kb 08:55 Triage completed. ss 08:55 Arm band placed on right wrist. ss 09:15 Patient has correct armband on for positive identification. Bed in low position. Call ss light in reach. 09:15 No provider procedures requiring assistance completed. Patient did not have IV access ss during this emergency room visit. Administered Medications: 09:00 Drug: Ketorolac 60 mg Route: IM; Site: left gluteus; dw 09:15 Follow up: Response: No adverse reaction ss 09:00 Drug: Clindamycin 300 mg Route: PO; dw 10:10 Follow up: Response: No adverse reaction Outcome: 08:49 Discharge ordered by MD. kb 09:15 Discharged to home ambulatory. ss 09:15 Condition: good 09:15 Discharge instructions given to patient, Instructed on discharge instructions, follow up and referral plans. medication usage, Demonstrated understanding of instructions, follow-up care, medications, Prescriptions given X 1. 09:17 Patient left the ED. eb Signatures: Migdalia Burr FNP-C FNP-Ckb Woody, Diana, RN Crystal Lagos Shelby, RN RN Carolyn Gardner
[2021-01-30 09:27] VITALS: BP 135/84; TEMP 98; O2SAT 100
== END 2021-01-30 09:17 | disposition home or self-care (01) ==
LOC: ER 07:54
DX: K08.89 Other specified disorders of teeth and supporting structures (principal); Z88.0 Allergy status to penicillin
CPT/HCPCS: 96372; 99283

== ENCOUNTER 2021-06-12 17:39 | Emergency (ER) | payer OTHER ==
--- OUTSIDE RECORDS SUMMARY | 2021-06-12 17:42 | XMS REPORT | Continuity of Care Document ---
:1995 Author Organization [facility] t Address [address] [place] [address] Care Team Providers Name Role Phone PCP, DOES NOT HAVE A Primary Care Physician Unavailable WOOD Attending Clinician Unavailable JUNITO, A Attending Clinician Unavailable Doctor Unassigned, Name Attending Clinician Unavailable Lab, Fam Pob I Attending Clinician Unavailable Hardy CASPER Attending Clinician HARDY Attending Clinician Unavailable Colleen CLOTH DOFFER, J Attending Clinician Wood CASPER Attending Clinician Provider, Urgent Care Attending Clinician Unavailable Unknown Attending Clinician Unavailable Quyen HSIEH Attending Clinician UNKNOWN Attending Clinician Unavailable QUYEN Attending Clinician Unavailable Payers Payer Name Policy Type Policy Number Effective Date Expiration Date [facility] [id number] [address] [facility] MEDICAID 00:00:00 [facility] [id number] 2020 GLOBAL 00:00:00 Problems Condition Condition Condition Status Onset Resolution Last Treating Co mments Source Name Details Category Date Date Treatment Clinician Date No known No known Disease Unive rs active active ity of problems problems [facility] Allergies, Adverse Reactions, Alerts Allergy Allergy Status Severity Reaction(s) Onset Inactive Treating Comm ents Source Name Type Date Date Clinician PENICILL DRUG Active High Anaphylaxis Uni vers IN INGREDI 3-13 ity of 00:00: [address] Penicill Propensi Active Anaphylaxis 0 U nivers in ty to 3-13 ity of adverse 00:00: [place] reaction [address] [place] [address] NO KNOWN Drug Active Univers ALLERGIE Class ity of S [facility] Social History Social Habit Start Date Stop Date Quantity Comments Source History of tobacco Cigarette Smoker University of use [facility] Exposure to Yes University of SARS-CoV-2 (event) [facility] Cigarettes smoked 2020-07-26 2020-07-26 Univers ity of current (pack per 00:00:00 00:00:00 [facility] ) - Reported Branch Cigarette 2020-07-26 2020-07-26 University of pack-years 00:00:00 00:00:00 [facility] Tobacco use and 2020-07-26 2020-07-26 Never used Universit y of exposure 00:00:00 00:00:00 [facility] Alcohol intake 2020-07-26 2020-07-26 Current drinker Unive rsity of 00:00:00 00:00:00 of alcohol [facility] (finding) [place] Sex Assigned At [birth year] Universit y of 00:00:00 00:00:00 [facility] Smoking Status Start Date Stop Date Source Current every day smoker 2020-07-26 00:00:00 Uni versity of [facility] Medications Ordered Filled Start Stop Current Ordering Indication Dosage Frequency Signature Comments Components Source Medication Medication Date Date Medication? Clinician (SIG) Name Name ibuprofen 2020- No [id number] 800mg Take 1 Univers 800 mg 07-26-11 tablet by ity of tablet 00:00: 04:59 mouth [place] 00 :00 every 6 Medical (six) Branch hours for 10 days. ibuprofen 2020- No [id number] 800mg Take 1 Univers 800 mg --11 tablet by ity of tablet 00:00: 04:59 mouth [place] 00 :00 every 6 Medical (six) Branch hours for 10 days. ibuprofen 2020- No [id number] 800mg Take 1 Univers 800 mg - 06-11 tablet by ity of tablet 00:00: 04:59 mouth [place] 00 :00 every 6 Medical (six) Branch hours for 10 days. acetaminoph 2020- No [id number] 1{tbl} Take 1 U nivers en-codeine 07-26- tablet by ity of (TYLENOL-CO 00:00: 04:[place] DE[place] #3[place] 00 :00 every 6 Medical 300-30 mg (six) Branch tablet hours as needed for Pain (scale 7-10) for up to 5 days. Indication s: acute pain acetaminoph 2020- No 4647 1{tbl} Take 1 U nivers en-codeine 07-26- tablet by ity of (TYLENOL-CO 00:00: 04:59 [...] days. Indication s: acute pain azithromyci Yes [id number] 250mg Take 1 Univers n 5-16 tablet by ity of (ZITHROMAX 00:00: mouth [place] Z-ZITA) 250 00 SEE-INSTRU Med ical mg tablet CTIONS. Branch Please dispense a z pack azithromyci 0 Yes [id number] 250mg Take 1 Univers n 5-16 tablet by ity of (ZITHROMAX 00:00: mouth [place] Z-ZITA) 250 00 SEE-INSTRU Med ical mg tablet CTIONS. Branch Please dispense a z pack azithromyci 0 Yes [id number] 250mg Take 1 Univers n 5-16 tablet by ity of (ZITHROMAX 00:00: mouth [place] Z-ZITA) 250 00 SEE-INSTRU Med ical mg tablet CTIONS. Branch Please dispense a z pack azithromyci 0 Yes [id number] 250mg Take 1 Univers n 5-16 tablet by ity of (ZITHROMAX 00:00: mouth [place] Z-ZITA) 250 00 SEE-INSTRU Med ical mg tablet CTIONS. Branch Please dispense a z pack azithromyci 2020-0 Yes [id number] 250mg Take 1 Univers n 5-16 tablet by ity of (ZITHROMAX 00:00: mouth [place] Z-ZITA) 250 00 SEE-INSTRU Med ical mg tablet CTIONS. Branch Please dispense a z pack azithromyci Yes [id number] 250mg Take 1 Univers n 5-16 tablet by ity of (ZITHROMAX 00:00: mouth [place] Z-ZITA) 250 00 SEE-INSTRU Med ical mg tablet CTIONS. Branch Please dispense a z pack azithromyci Yes [id number] 250mg Take 1 Univers n 5-16 tablet by ity of (ZITHROMAX 00:00: mouth [place] Z-ZITA) 250 00 SEE-INSTRU Med ical mg tablet CTIONS. Branch Please dispense a z pack azithromyci Yes [id number] 250mg Take 1 Univers n 5-16 tablet by ity of (ZITHROMAX 00:00: mouth [place] Z-ZITA) 250 00 SEE-INSTRU Med ical mg tablet CTIONS. Branch Please dispense a z pack azithromyci Yes [id number] 250mg Take 1 Univers n 5-16 tablet by ity of (ZITHROMAX 00:00: mouth [place] Z-ZITA) 250 00 SEE-INSTRU Med ical mg tablet CTIONS. Branch Please dispense a z pack azithromyci Yes [id number] 250mg Take 1 Univers n 5-16 tablet by ity of (ZITHROMAX 00:00: mouth [place] Z-ZITA) 250 00 SEE-INSTRU Med ical mg tablet CTIONS. Branch Please dispense a z pack azithromyci Yes [id number] 250mg Take 1 Univers n 5-16 tablet by ity of (ZITHROMAX 00:00: mouth [place] Z-ZITA) 250 00 SEE-INSTRU Med ical mg tablet CTIONS. Branch Please dispense a z pack ibuprofen 2020- No [id number] 600mg Take 1 Univers 600 mg 3-13 -19 tablet by ity of tablet 00:00: 04:59 mouth [place] 00 :00 every 6 Medical (six) Branch hours as needed for Pain (scale 4-6) for up to 5 days. No known No Univers medications ity of [facility] Vital Signs Vital Name Observation Time Observation Value Comments Source Body height 2020-07-26 18:28:00 180.3 cm Universi ty of [place] [facility] Body weight 2020-07-26 18:28:00 86.183 kg Universi ty of [place] [facility] BMI 2020-07-26 18:28:00 26.50 kg/m2 Universi ty of [place] [facility] Oxygen saturation in 2020-07-26 18:28:00 96 /min University of Arterial blood by [place] [employer] agata Pulse oximetry Branch Systolic blood 2020-07-26 18:28:00 129 mm[Hg] Univer sity of pressure [place] [facility] Diastolic blood 2020-07-26 18:28:00 71 mm[Hg] Unive rsity of pressure [place] [facility] Heart rate 2020-07-26 18:28:00 60 /min Universi ty of [place] [facility] Body temperature 2020-07-26 18:28:00 36.44 Lynn Univ ersity of [place] [facility] Respiratory rate 2020-07-26 18:28:00 12 /min Univ ersity of [place] [facility] Systolic blood 2020-07-11 19:46:00 119 mm[Hg] Univer sity of pressure [place] [facility] Diastolic blood 2020-07-11 19:46:00 71 mm[Hg] Unive rsity of pressure [place] [facility] Heart rate 2020-07-11 19:46:00 74 /min Universi ty of [place] [facility] Body temperature 2020-07-11 19:46:00 36.89 [place] Univ ersity of [place] [facility] Respiratory rate 2020-07-11 19:46:00 18 /min Univ ersity of [place] [facility] Body height 2020-07-11 19:46:00 180.3 cm Universi ty of [place] [facility] Body weight 2020-07-11 19:46:00 86.807 kg Universi ty of [place] [facility] BMI 2020-07-11 19:46:00 26.69 kg/m2 Universi ty of [place] [facility] Oxygen saturation in 2020-07-11 19:46:00 98 /min University of Arterial blood by [place] agata Pulse oximetry Branch Systolic blood 2020-05-08 19:28:00 126 mm[Hg] Univer sity of pressure [place] [facility] Diastolic blood 2020-05-08 19:28:00 79 mm[Hg] Unive rsity of pressure [place] [facility] Heart rate 2020-05-08 19:28:00 88 /min Universi ty of [place] [facility] Body temperature 2020-05-08 19:28:00 37.28 Lynn Univ ersity of [place] [facility] Respiratory rate 2020-05-08 19:28:00 18 /min Univ ersity of [place] [facility] Body height 2020-05-08 19:28:00 180.3 cm Universi ty of [place] [facility] Body weight 2020-05-08 19:28:00 87.544 kg Universi ty of [place] [facility] BMI 2020-05-08 19:28:00 26.92 kg/m2 Universi ty of [place] [facility] Oxygen saturation in 2020-05-08 19:28:00 99 /min University of Arterial blood by [facility] Pulse oximetry Branch Systolic blood 2020-05-08 19:28:00 126 mm[Hg] Univer sity of pressure [place] [facility] Diastolic blood 2020-05-08 19:28:00 79 mm[Hg] Unive rsity of pressure [place] [facility] Heart rate 2020-05-08 19:28:00 88 /min Universi ty of [place] [facility] Body temperature 2020-05-08 19:28:00 37.28 Lynn Univ ersity of [place] [facility] Respiratory rate 2020-05-08 19:28:00 18 /min Univ ersity of [place] [facility] Body height 2020-05-08 19:28:00 180.3 cm Universi ty of [place] [facility] Body weight 2020-05-08 19:28:00 87.544 kg Universi ty of [place] [facility] BMI 2020-05-08 19:28:00 26.92 kg/m2 Universi ty of [place] [facility] Oxygen saturation in 2020-05-08 19:28:00 99 /min University of Arterial blood by [place] [employer] Pulse oximetry Branch Procedures Procedure Date / Time Performed Performing Clinician Sourc e POCT GRP A STREP 2020-07-11 19:57:00 Chad Mccarthy sit of [place] (MOLECULAR) Medical Branch ASSIGNMENT OF BENEFITS 2020-07-11 19:28:40 Doctor Unassigned, No University [facility] Name Medical Branch Encounters Start End Encounter Admission Attending Care Care Encounter Source Date/Time Date/Time Type Type Clinicians Facility Department ID 2021-04-29 2021-04-29 Outpatient R WOOD [facility] [id number] Univers 19:00:00 19:06:29 ROX ity [facility] [place] 2021-04-29 2021-04-29 Outpatient R [facility] [id number] Univers 19:00:00 19:00:00 [id number] ity [facility] [place] 2020-11-04 2020-11-04 [facility]patient [facility] [id number] Univers 13:30:00 13:30:00 SHAI [id number] ity [facility] [place] 2020-11-04 2020-11-04 Outpatient [facility] [id number] Univers 13:30:00 13:30:00 SHAI [facility] 2020-10-22 2020-10-22 Letter Doctor [place] [id number] Univers 00:00:00 00:00:00 (Out) Unassigned, GOMEZ [id number] ity of [place] [facility] [id number] [place] as [phone] [address] 2020-10-22 2020-10-22 Letter Doctor [place] [id number] Univers 00:00:00 00:00:00 (Out) Unassigned, GOMEZ [id number] ity of [place] [facility] [id number] [place] as [phone] [address] 2020-09-19 2020-09-19 Laboratory Lab, Adc Fam Pob I [facility] [id number]. [id number] Univers 16:47:20 17:07:20 [facility] [id number] 10 ity of [place] [id number] [place] as Professio [phone] [address] 2020-09-19 2020-09-19 Outpatient R [facility] [id number] Univers 16:40:00 16:40:00 [id number] [facility] 2020-09-19 2020-09-19 Outpatient R HARDY [facility] [id number] Univers 16:40:00 16:40:00 , CHAD [facility] 2020-09-10 2020-09-10 Telephone Colleen, [facility] [id number] Univers 00:00:00 00:00:00 Tesha [facility] [id number] ity of [place] [id number] [place] as Professio [phone] Mn dical nal [address] [place] [address] 2020-09-09 2020-09-09 Laboratory Lab, Adc Fam Pob I [facility] 1.2. 840.114 [id number] Univers 20:00:48 20:20:48 Only Rox [facility] [id number] ity of [place] [id number] [place] as Professio [phone] Mn dical nal [address] [place] [facility] 2020-09-09 2020-09-09 Outpatient R [facility] [id number] Univers 20:00:00 20:00:00 [id number] [facility] 2020-09-09 2020-09-09 Outpatient R WOOD [facility] [id number] Univers 20:00:00 20:00:00 ROX [facility] 2020-07-26 2020-07-26 Urgent Provider, [facility] [id number] Univers 13:26:34 13:41:05 Care Unknown, [facility] [id number] ity of [place] [facility] [place] [id number] [place] Professio [phone] Mn dical nal [address] [place] [facility] [address] [facility] 2020-07-26 2020-07-26 Outpatient R [facility] [id number] Univers 13:40:00 13:40:00 [id number] [facility] 2020-07-26 2020-07-26 Outpatient R GAYLA [facility] [id number] Univers 13:40:00 13:40:00 ATTENDING ity [facility] [place] 2020-07-112020-07-11 Urgent Provider, Ang [facility] [id number] Univers 14:29:52 15:27:13 Care Quyen [facility] [id number] ity of [place] [id number] [place] as Professio [phone] [address] 2020-07-11 2020-07-11 Outpatient R [facility] [id number] Univers 14:40:00 14:40:00 [id number] ity [facility] [place] 2020-07-11 2020-07-11 Outpatient R [facility] [id number] Univers 14:40:00 14:40:00 ity [facility] [place] 2020-07-11 2020-07-11 Orders Doctor RAINA [id number] Univers 00:00:00 00:00:00 Only Unassigned, GOMEZ [id number] ity of [place] [facility] [id number] [place] as [phone] [address] 2020-05-08 2020-05-08 Urgent [facility] [id number] 13:23:37 13:43:37 Care [facility] [id number] [place] [id number] Professio [phone] [address] 2020-05-08 2020-05-08 Urgent ColleenTesha hammonds [facility] 1.2.840 .[id number] Univers 13:23:37 13:43:37 Care Quyen [facility] [place] [id number] ity of [place] [id number] [place] as Professio [phone] [address] 2020-05-08 2020-05-08 Outpatient [facility] [id number] Univers 13:00:00 13:00:00 [facility] Results Test Description Test Time Test Comments Results Result Comments Source POCT GRP A STREP (MOLECULAR) 2020-07-11 20:06:00 Test Item Value Reference Range Interpretation Comme nts POCT GP A STREP (test code = 14641-3) Negative Negative - Negat henry Lab Interpretation (test code = 98729-2) Normal [facility] [place] [facility]
--- NOTE | 2021-06-12 18:12 | ER ---
Nurse's Notes [facility] Name: Huseyin Winkler Age: 26 yrs Sex: Male : 1995 Arrival Date: 06/12/2021 Time: 17:44 Bed Waiting Private MD: Diagnosis: Dental Pain Presentation: 06/12 17:56 Chief complaint: Patient states: One of my teeth fell out of its socket a while back jb4 and now it hurts really bad. It radiates to my entire left side of my face. Coronavirus screen: At this time, the client does not indicate any symptoms associated with coronavirus-19. Ebola Screen: No symptoms or risks identified at this time. Initial Sepsis Screen: Does the patient meet any 2 criteria? No. Patient's initial sepsis screen is negative. Does the patient have a suspected source of infection? No. Patient's initial sepsis screen is negative. Risk Assessment: Do you want to hurt yourself or someone else? Patient reports no desire to harm self or others. Onset of symptoms was June 12, 2021. Transition of care: patient was not received from another setting of care. 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 - Social history:: Smoking status: Patient reports the use of cigarette tobacco products, smokes one-half pack cigarettes per day. Screenin:26 Abuse screen: Denies threats or abuse. Nutritional screening: No deficits noted. jb4 Tuberculosis screening: No symptoms or risk factors identified. Fall Risk None identified. Assessment: 18:26 General: Appears in no apparent distress. uncomfortable, Behavior is calm, cooperative, jb4 appropriate for age. Pain: Complains of pain in mouth Pain radiates to left side of head Pain currently is 9 out of 10 on a pain scale. Neuro: Level of Consciousness is awake, alert, obeys commands, Oriented to person, place, time, situation. Cardiovascular: Patient's skin is warm and dry. Respiratory: Airway is patent Respiratory effort is even, unlabored, Respiratory pattern is regular, symmetrical. Musculoskeletal: Circulation, motion, and sensation intact. Range of motion: intact in all extremities. Vital Signs: 17:56 BP 128 / 75; Pulse 86; Resp 16; Temp 98.9(TE); Pulse Ox 100% on R/A; Weight 88.45 kg; jb4 Height 5 ft. 11 in. (180.34 cm); Pain 7/10; 17:56 Body Mass Index 27.20 (88.45 kg, 180.34 cm) jb4 ED Course: 17:44 Patient arrived in ED. ja2 17:48 Linus Daugherty PA is PHCP. jm 17:48 Guy Sr MD is Attending Physician. jm 17:59 Triage completed. jb4 17:59 Arm band placed on right wrist. jb4 18:12 Rg Montero DDS is Referral Physician. jmm 18:26 Patient has correct armband on for positive identification. jb4 18:26 No provider procedures requiring assistance completed. Patient did not have IV access jb4 during this emergency room visit. Administered Medications: 18:24 Drug: Ultracet (tramadol-acetaminophen) 1 tabs Route: PO; jb4 18:26 Follow up: Response: Medication administered at discharge. jb4 18:24 Drug: Clindamycin 300 mg Route: PO; jb4 18:26 Follow up: Response: Medication administered at discharge. jb4 Outcome: 18:12 Discharge ordered by . jm 18:26 Discharged to home ambulatory. jb4 18:26 Condition: stable 18:26 Discharge instructions given to patient, Instructed on discharge instructions, follow up and referral plans. medication usage, Demonstrated understanding of instructions, follow-up care, medications, Prescriptions given X 2. 18:27 Patient left the ED. jb4 Signatures: Linus Daugherty PA PA jmm Bryson, James, EDGARD RN jb4 Kathia Washington [facility]
--- NOTE | 2021-06-12 18:13 | EDPHYS ---
Physician Documentation [facility] Name: Huseyin Winkler Age: 26 yrs Sex: Male : 1995 Arrival Date: 06/12/2021 Time: 17:44 Bed Waiting Private MD: CHAPO Physician Guy Sr HPI: 06/12 18:08 This 26 yrs old Male presents to ER via Ambulatory with complaints of Mouth jmm Problem. 18:08 The patient presents with pain. Onset: The symptoms/episode began/occurred gradually. jmm Duration: The symptoms are continuous. Modifying factors: The symptoms are alleviated by nothing, the symptoms are aggravated by nothing. Associated signs and symptoms: Pertinent positives: swelling. This is a 26 year old male with a history of atrial fib that presents to the ED with complaints of left upper dental pain secondary to a cracked tooth. States the pain now radiates to the left ear. . 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 - Social history:: Smoking status: Patient reports the use of cigarette tobacco products, smokes one-half pack cigarettes per day. ROS: 18:08 Constitutional: Negative for fever, chills, and weight loss. jmm 18:08 ENT: Positive for dental pain. 18:08 All other systems are negative. Exam: 18:08 Constitutional: This is a well developed, well nourished patient who is awake, alert, jmm and in no acute distress. Head/Face: atraumatic. Eyes: EOMI, no conjunctival erythema appreciated 18:08 Neck: Trachea midline, Supple Chest/axilla: Normal chest wall appearance and motion. Cardiovascular: Regular rate and rhythm. No edema appreciated Respiratory: Normal respirations, no respiratory distress appreciated Abdomen/GI: Non distended, soft Back: Normal ROM Skin: General appearance color normal MS/ Extremity: Moves all extremities, no obvious deformities appreciated, no edema noted to the lower extremities Neuro: Awake and alert Psych: Behavior is normal, Mood is normal, Patient is cooperative and pleasant 18:08 ENT: Dental exam: gum swelling, that is moderate, specifically in the upper left second molar (#15). Vital Signs: 17:56 BP 128 / 75; Pulse 86; Resp 16; Temp 98.9(TE); Pulse Ox 100% on R/A; Weight 88.45 kg; jb4 Height 5 ft. 11 in. (180.34 cm); Pain 7/10; 17:56 Body Mass Index 27.20 (88.45 kg, 180.34 cm) jb4 MDM: 18:07 Patient medically screened. [facility] 18:11 Data reviewed: vital signs, nurses notes. Counseling: I had a detailed discussion with [facility] the patient and/or guardian regarding: the historical points, exam findings, and any diagnostic results supporting the discharge/admit diagnosis, the need for outpatient follow up, to return to the emergency department if symptoms worsen or persist or if there are any questions or concerns that arise at home. ED course: Patient is alert and non toxic in appearance in the ED. Patient advised to follow up with dentist and otherwise given strict return precautions. patient understood and agrees with the plan of care. . Administered Medications: 18:24 Drug: Ultracet (tramadol-acetaminophen) 1 tabs Route: PO; [facility] 18:26 Follow up: Response: Medication administered at discharge. [facility] 18:24 Drug: Clindamycin 300 mg Route: PO; jb4 18:26 Follow up: Response: Medication administered at discharge. jb4 Disposition Summary: 06/12/21 18:12 Discharge Ordered Location: Home [facility] Condition: Stable [facility] Diagnosis - Dental Pain [facility] Followup: [facility] - With: Rg Montero DDS - When: 2 - 3 days - Reason: Recheck today's complaints, Continuance of care, Re-evaluation by your physician Discharge Instructions: - Discharge Summary Sheet [facility] - Dental Pain [facility] Forms: - Medication Reconciliation Form [facility] - Thank You Letter [facility] - Antibiotic Education [facility] - Prescription Opioid Use [facility] Prescriptions: - Clindamycin HCl 300 mg Oral Capsule - take 1 capsule by ORAL route every 6 hours for 10 days; 40 capsule; Refills: 0, [facility] Product Selection Permitted - Diclofenac Sodium 75 mg Oral Tablet Sustained Release - take 1 tablet by ORAL route 2 times per day; 30 tablet; Refills: 0, Product [facility] Selection Permitted Addendum: 06/17/2021 07:44 Co-signature as Attending Physician, Guy Sr MD I agree with the assessment and c demarco plan of care. Signatures: Guy Sr MD MD cha Mickail, Joel, PA PA jmm Bryson, James, RN RN jb4
[2021-06-12] MEDS ORDERED: TRAMADOL 37.5mg/APAP 325mg PER TAB ONE (18:25)
[2021-06-12 19:39] VITALS: BP 128/75; TEMP 98.9; O2SAT 100
== END 2021-06-12 18:27 | disposition home or self-care (01) ==
LOC: ER 17:39
DX: K08.89 Other specified disorders of teeth and supporting structures (principal); I48.91 Unspecified atrial fibrillation; F17.210 Nicotine dependence, cigarettes, uncomplicated; Z88.0 Allergy status to penicillin
CPT/HCPCS: 99283

== ENCOUNTER 2021-08-13 16:03 | Emergency (ER) | payer OTHER ==
--- OUTSIDE RECORDS SUMMARY | 2021-08-13 16:06 | XMS REPORT | Continuity of Care Document ---
:1995 Author Organization [facility] t Address [address] [place] [address] Care Team Providers Name Role Phone Pcp, Does Not Have A Primary Care Physician Ebrahim STILL WORKER HELPER Attending Clinician EVANGELISTAI Attending Clinician Unavailable Virginia STILL WORKER HELPER Attending Clinician Quyen STILL WORKER HELPER Attending Clinician Doctor Unassigned, Name Attending Clinician Unavailable WOOD Attending Clinician Unavailable JUNITO, A Attending Clinician Unavailable Lab, Fam Pob I Attending Clinician Unavailable Hardy CASPER Attending Clinician HARDY Attending Clinician Unavailable Colleen STILL WORKER HELPER, J Attending Clinician Wood CASPER Attending Clinician Provider, Urgent Care Attending Clinician Unavailable Unknown Attending Clinician Unavailable UNKNOWN Attending Clinician Unavailable QUYEN Attending Clinician Unavailable Payers Payer Name Policy Type Policy Number Effective Date Expiration Date [facility] [id number] 2020 [facility] 00:00:00 Problems Condition Condition Condition Status Onset Resolution Last Treating Co mments Source Name Details Category Date Date Treatment Clinician Date No known No known Disease Unive rs active active ity of problems problems [facility] Allergies, Adverse Reactions, Alerts Allergy Allergy Status Severity Reaction(s) Onset Inactive Treating Comm ents Source Name Type Date Date Clinician P[place] DRUG Active High Anaphylaxis Uni vers IN INGREDI 3-13 ity of 00:00: [address] Penic[place] Propensi Active Anaphylaxis U nivers in ty to 3-13 ity of adverse 00:00: [place] reaction 00 Medical s [place] NO KNOWN Drug Active Univers ALLERGIE Class ity of S [facility] Social History Social Habit Start Date Stop Date Quantity Comments Source History of tobacco Cigarette Smoker University of use [facility] Exposure to 2021-07-21 2021-07-31 Not sure [facility] SARS-CoV-2 (event) 00:00:00 13:28:00 [facility] Alcohol intake 2021-07-31 2021-07-31 .29 /d University of 00:00:00 00:00:00 [facility] Cigarettes smoked 2020-05-08 2020-05-08 Univers ity of current (pack per 00:00:00 00:00:00 [facility] ) - Reported Branch Cigarette 2020-05-08 2020-05-08 University of pack-years 00:00:00 00:00:00 [facility] Tobacco use and 2020-05-08 2020-05-08 Never used Universit y of exposure 00:00:00 00:00:00 [facility] Sex Ass[birth year] At [birth year] Universit y of 00:00:00 00:00:00 [facility] Smoking Status Start Date Stop Date Source Current every day smoker 2020-05-08 00:00:00 Uni versity of [facility] Medications Ordered Filled Start Stop Current Ordering Indication Dosage Frequency Signature Comments Components Source Medication Medication Date Date Medication? Clinician (SIG) Name Name meclizine Yes [id number] 25mg Take 1 U nivers 25 mg 3-04 tablet by ity of tablet 00:00: mouth 3 (three) Medical times [place] daily as needed for Dizziness. meclizine Yes [id number] 25mg Take 1 U nivers 25 mg 3-04 tablet by ity of tablet 00:00: mouth 3 (three) Medical times [place] daily as needed for Dizziness. meclizine Yes [id number] 25mg Take 1 U nivers 25 mg 3-04 tablet by ity of tablet 00:00: mouth 3 (three) Medical times Branch daily as needed for Dizziness. meclizine Yes [id number] 25mg Take 1 U nivers 25 mg 3-04 tablet by ity of tablet 00:00: mouth 3 [place] 00 (three) Medical times Branch daily as needed for Dizziness. ibuprofen 2020- No [id number] 800mg Take 1 Univers 800 mg 07-26- tablet by ity of tablet 00:00: 04:59 mouth [place] 00 :00 every 6 Medical (six) Branch hours for 10 days. ibuprofen 2020- No [id number] 800mg Take 1 Univers 800 mg 07-26- tablet by ity of tablet 00:00: 04:59 mouth [place] 00 :00 every 6 Medical (six) Branch hours for 10 days. ibuprofen 2020- No [id number] 800mg Take 1 Univers 800 mg 07-26- tablet by ity of tablet 00:00: 04:59 [...] 5 days. Indication s: acute pain acetaminoph No [id number] 1{tbl} Take 1 U nivers en-codeine 07-26-06 tablet by ity of (TYLENOL-CO 00:00: 04:59 [place] DE[place] #3[place] 00 :00 every 6 Medical 300-30 mg (six) Branch tablet hours as needed for Pain (scale 7-10) for up to 5 days. Indication s: acute pain azithromyci 2020- Yes [id number] 250mg Take 1 Univers n 5-16 tablet by ity of (ZITHROMAX 00:00: mouth [place] Z-ZITA) 250 00 SEE-INSTRU Med ical mg tablet CTIONS. Branch Please dispense a z pack azithromyci 202-0 Yes [id number] 250mg Take 1 Univers n 5-16 tablet by ity of (ZITHROMAX 00:00: mouth [place] Z-ZITA) 250 00 SEE-INSTRU Med ical mg tablet CTIONS. Branch Please dispense a z pack azithromyci 202-0 Yes [id number] 250mg Take 1 Univers n 5-16 tablet by ity of (ZITHROMAX 00:00: mouth [place] Z-ZITA) 250 00 SEE-INSTRU Med ical mg tablet CTIONS. Branch Please dispense a z pack azithromyci 2020-0 Yes [id number] 250mg Take 1 Univers n 5-16 tablet by ity of (ZITHROMAX 00:00: mouth [place] Z-ZITA) 250 00 SEE-INSTRU Med ical mg tablet CTIONS. Branch Please dispense a z pack azithromyci 2020-0 Yes [id number] 250mg Take 1 Univers n 5-16 tablet by ity of (ZITHROMAX 00:00: mouth [place] Z-ZITA) 250 00 SEE-INSTRU Med ical mg tablet CTIONS. Branch Please dispense a z pack azithromyci 2020-0 Yes [id number] 250mg Take 1 Univers n 5-16 tablet by ity of (ZITHROMAX 00:00: mouth [place] Z-ZITA) 250 00 SEE-INSTRU Med ical mg tablet CTIONS. Branch Please dispense a z pack azithromyci 2020-0 Yes [id number] 250mg Take 1 Univers n 5-16 tablet by ity of (ZITHROMAX 00:00: mouth [place] Z-ZITA) 250 00 SEE-INSTRU Med ical mg tablet CTIONS. Branch Please dispense a z pack azithromyci 2020-0 Yes [id number] 250mg Take 1 Univers n 5-16 tablet by ity of (ZITHROMAX 00:00: mouth [place] Z-ZITA) 250 00 SEE-INSTRU Med ical mg tablet CTIONS. Branch Please dispense a z pack azithromyci 2020-0 Yes [id number] 250mg Take 1 Univers n 5-16 tablet by ity of (ZITHROMAX 00:00: mouth [place] Z-ZITA) 250 00 SEE-INSTRU Med ical mg tablet CTIONS. Branch Please dispense a z pack azithromyci Yes [id number] 250mg Take 1 Univers n 5-16 tablet by ity of (ZITHROMAX 00:00: mouth [place] Z-ZITA) 250 00 SEE-INSTRU Med ical mg tablet CTIONS. Branch Please dispense a z pack azithromyci Yes [id number] 250mg Take 1 Univers n 5-16 tablet by ity of (ZITHROMAX 00:00: mouth [place] Z-ZITA) 250 00 SEE-INSTRU Med ical mg tablet CTIONS. Branch Please dispense a z pack azithromyci Yes [id number] 250mg Take 1 Univers n 5-16 tablet by ity of (ZITHROMAX 00:00: mouth [place] Z-ZITA) 250 00 SEE-INSTRU Med ical mg tablet CTIONS. Branch Please dispense a z pack azithromyci Yes [id number] 250mg Take 1 Univers n 5-16 tablet by ity of (ZITHROMAX 00:00: mouth [place] Z-ZITA) 250 00 SEE-INSTRU Med ical mg tablet CTIONS. Branch Please dispense a z pack azithromyci Yes [id number] 250mg Take 1 Univers n 5-16 tablet by ity of (ZITHROMAX 00:00: mouth [place] Z-ZITA) 250 00 SEE-INSTRU Med ical mg tablet CTIONS. Branch Please dispense a z pack azithromyci Yes [id number] 250mg Take 1 Univers n 5-16 tablet by ity of (ZITHROMAX 00:00: mouth [place] Z-ZITA) 250 00 SEE-INSTRU Med ical mg tablet CTIONS. Branch Please dispense a z pack ibuprofen 2020- No [id number] 600mg Take 1 Univers 600 mg 3-13 -19 tablet by ity of tablet 00:00: 04:59 mouth [place] 00 :00 every 6 Medical (six) Branch hours as needed for Pain (scale 4-6) for up to 5 days. No known No Univers medications ity of [facility] Vital Signs Vital Name Observation Time Observation Value Comments Source Systolic blood 2021-07-31 18:27:00 127 mm[Hg] Univer sity of pressure [place] [facility] Diastolic blood 2021-07-31 18:27:00 86 mm[Hg] Unive rsity of pressure [place] [facility] Heart rate 2021-07-31 18:27:00 106 /min Universi ty of [place] [facility] Body temperature 2021-07-31 18:27:00 36.94 Lynn Univ ersity of [place] [facility] Respiratory rate 2021-07-31 18:27:00 17 /min Univ ersity of [place] [facility] Body height 2021-07-31 18:27:00 180.3 cm Universi ty of [place] [facility] Body weight 2021-07-31 18:27:00 85.095 kg Universi ty of [place] [facility] BMI 2021-07-31 18:27:00 26.16 kg/m2 Universi ty of [place] [facility] Oxygen saturation in 2021-07-31 18:27:00 97 /min University of Arterial blood by [facility] Pulse oximetry Branch Body height 2020-07-26 18:28:00 180.3 cm Universi ty of [place] [facility] Body weight 2020-07-26 18:28:00 86.183 kg Universi ty of [place] [facility] BMI 2020-07-26 18:28:00 26.50 kg/m2 Universi ty of [place] [facility] Oxygen saturation in 2020-07-26 18:28:00 96 /min University of Arterial blood by [facility] Pulse oximetry Branch Systolic blood 2020-07-26 18:28:00 129 mm[Hg] Univer sity of pressure [place] [facility] Diastolic blood 2020-07-26 18:28:00 71 mm[Hg] Unive rsity of pressure [place] [facility] Heart rate 2020-07-26 18:28:00 60 /min Universi ty of [place] [facility] Body temperature 2020-07-26 18:28:00 36.44 Lynn Univ ersity of [place] [facility] Respiratory rate 2020-07-26 18:28:00 12 /min Univ ersity of [place] [facility] Systolic blood 2020-07-11 19:46:00 119 mm[Hg] Univer sity of pressure [place] [facility] Diastolic blood 2020-07-11 19:46:00 71 mm[Hg] Unive rsity of pressure [place] [facility] Heart rate 2020-07-11 19:46:00 74 /min Universi ty of [place] [facility] Body temperature 2020-07-11 19:46:00 36.89 Lynn Univ ersity of [place] [facility] Respiratory rate 2020-07-11 19:46:00 18 /min Univ ersity of [place] [facility] Body height 2020-07-11 19:46:00 180.3 cm Universi ty of [place] [facility] Body weight 2020-07-11 19:46:00 86.807 kg Universi ty of [place] [facility] BMI 2020-07-11 19:46:00 26.69 kg/m2 Universi ty of [place] [facility] Oxygen saturation in 2020-07-11 19:46:00 98 /min University of Arterial blood by [place] [employer] agata Pulse oximetry Branch Systolic blood 2020-05-08 19:28:00 126 mm[Hg] Univer sity of pressure [place] [facility] Diastolic blood 2020-05-08 19:28:00 79 mm[Hg] Unive rsity of pressure [place] [facility] Heart rate 2020-05-08 19:28:00 88 /min Universi ty of [place] [facility] Body temperature 2020-05-08 19:28:00 37.28 Lynn Univ ersity of [place] [facility] Respiratory rate 2020-05-08 19:28:00 18 /min Univ ersity of [place] [facility] Body height 2020-05-08 19:28:00 180.3 cm Universi ty of [place] [facility] Body weight 2020-05-08 19:28:00 87.544 kg Universi ty of [place] [facility] BMI 2020-05-08 19:28:00 26.92 kg/m2 Universi ty of [place] [facility] Oxygen saturation in 2020-05-08 19:28:00 99 /min University of Arterial blood by [employer] agata Pulse oximetry Branch Systolic blood 2020-05-08 19:28:00 126 mm[Hg] Univer sity of pressure [place] [facility] Diastolic blood 2020-05-08 19:28:00 79 mm[Hg] Unive rsity of pressure [place] [facility] Heart rate 2020-05-08 19:28:00 88 /min Universi ty of [place] [facility] Body temperature 2020-05-08 19:28:00 37.28 Lynn [facility] Respiratory rate 2020-05-08 19:28:00 18 /min [facility] Body height 2020-05-08 19:28:00 180.3 cm [facility] Body weight 2020-05-08 19:28:00 87.544 kg [facility] BMI 2020-05-08 19:28:00 26.92 kg/m2 [facility] Oxygen saturation in 2020-05-08 19:28:00 99 /min [facility] Arterial blood by [facility] Pulse oximetry Branch Procedures Procedure Date / Time Performed Performing Clinician Claudine e XR SHOULDER 2+ VW 2021-07-31 18:58:00 Marcela Moore [facility] ASSIGNMENT OF BENEFITS 2021-07-31 18:22:34 Doctor Unassigned, No [facility] POCT GRP A STREP 2020-07-11 19:57:00 Chad Mccarthy [facility] (MOLECULAR) [facility] ASSIGNMENT OF BENEFITS 2020-07-11 19:28:40 Doctor Unassigned, No [facility] Encounters Start End Encounter Admission Attending Care Care Encounter Source Date/Time Date/Time Type Type Clinicians Facility Department ID 2021-08-02 2021-08-02 Telephone [facility] [id number] Univers 00:00:00 00:00:00 [employer] [id number] it y of [place] [id number] [place] as LIZBET?BLEA [phone] [address] MEDICAL OFFICE BUILDING 2021-07-31 2021-07-31 Outpatient R [facility] [id number] Univers 13:44:56 23:59:00 [facility] 2021-07-31 2021-07-31 Hospital [facility] .2.840.114 [id number] Univers 13:44:56 23:59:00 [facility] [id number] ity of [place] [id number] [place] as LIZBET?BLEA [id number] Ok dicalie POTTER [address] [place] MEDICAL OFFICE [facility] 2021-07-31 2021-07-31 Urgent Marcela Moore [facility] 1.2.840. [id number] Univers 13:40:00 14:48:13 [facility] [id number] ity of [place] [id number] [place] as LIZBET?BLEA [phone] Ok dical KNHAVEN [address] [place] MEDICAL OFFICE [facility] 2021-07-31 2021-07-31 Outpatient R [facility] [id number] Univers 13:40:00 13:40:00 [id number] ity [facility] 2021-07-31 2021-07-31 Orders Doctor RAINA [id number] Univers 00:00:00 00:00:00 Only UnassignedGOMEZ [id number] ity of [place] [facility] [id number] [place] as [phone] [address] 2021-04-29 2021-04-29 [facility] [id number] Univers 19:00:00 19:06:29 ROX ity [facility] 2021-04-29 2021-04-29 Outpatient R [facility] [id number] Univers 19:00:00 19:00:00 [id number] ity [facility] 2020-11-04 2020-11-04 [facility] [id number] Univers 13:30:00 13:30:00 SHAI [id number] ity [facility] 2020-11-04 2020-11-04 [facility] [id number] Univers 13:30:00 13:30:00 [facility] 2020-10-22 2020-10-22 Letter Doctor RAINA [id number] Univers 00:00:00 00:00:00 (Out) UnassignedGOMEZ [id number] ity of [place] [facility] [id number] Sampson as [phone] [address] 2020-10-22 2020-10-22 Letter Doctor RAINA 1.2.840.114 [id number] Univers 00:00:00 00:00:00 (Out) Unassigned, GOMEZ [id number] ity of [place] [facility] [id number] Sampson as [phone] [address] 2020-09-19 2020-09-19 Laboratory Lab, [facility] I [facility] 1.2. 840.114 [id number] Univers 16:47:20 17:07:20 [facility] [id number]. 10 ity of [place] [id number] [place]pson as Professio [id number] [address] One 2020-09-19 2020-09-19 Outpatient R [facility] [id number] Univers 16:40:00 16:40:00 [id number] ity of [facility] 2020-09-19 2020-09-19 Outpatient R [facility] [id number] Univers 16:40:00 16:40:00 , CHAD ity [facility] 2020-09-10 2020-09-10 [facility] [id number] Univers 00:00:00 00:00:00 [facility] [id number] ity of [place] [id number] [place]pson as Professio [phone] [address] One 2020-09-09 2020-09-09 Laboratory Lab, Adc [facility] 1.2. [id number] [id number] Univers 20:00:48 20:20:48 Only [facility] [id number] ity of [place] [id number] [place] as Professio [phone] [address] One 2020-09-09 2020-09-09 Outpatient R [facility] [id number] Univers 20:00:00 20:00:00 [id number] ity [facility] 2020-09-09 2020-09-09 Outpatient R WOOD [facility] [id number] Univers 20:00:00 20:00:00 ROX ity [facility] 2020-07-26 2020-07-26 Urgent Provider, [facility] 1.2.840.114 [id number] Univers 13:26:34 13:41:05 Care Unknown, [facility] [id number] ity of [place] [id number] [place] Professio [id number] Ok dical nal [address] [place] Office [facility] One 2020-07-26 2020-07-26 Outpatient R [facility] [id number] Univers 13:40:00 13:40:00 [id number] ity [facility] 2020-07-26 2020-07-26 Outpatient [facility] [id number] Univers 13:40:00 13:40:00 ATTENDING ity [facility] 2020-07-11 2020-07-11 Urgent Provider, [facility] 1.2.840.114 [id number] Univers 14:29:52 15:27:13 Care [place] [facility] [id number] ity of [place] [id number] [place] as Professio [phone] Ok dical nal [address] [place] Office [facility] One 2020-07-11 2020-07-11 Outpatient R [facility] [id number] Univers 14:40:00 14:40:00 [id number] ity [facility] 2020-07-11 2020-07-11 Outpatient R [facility] [id number] Univers 14:40:00 14:40:00 ity [facility] 2020-07-11 2020-07-11 Orders Doctor [place] [id number] Univers 00:00:00 00:00:00 Only Unassigned, GOMEZ [id number] ity of [place] [facility] [id number] [place] as [phone] [address] 2020-05-08 2020-05-08 Urgent Colleen, [facility] [id number] 13:23:37 13:43:[address] [facility] [id number] [place] [id number] Professio [phone] nal [facility] Office Building One 2020-05-08 2020-05-08 Urgent Tesha Macias [facility] 1.2.840 .114 [id number] [facility] [place] [facility] 13:23:37 13:43:37 Care Quyen [facility] 350..13.10 [facility] [id number] [place] Professio [phone] [place] [address] Branch Office Building One 2020-05-08 2020-05-08 Outpatient R QUYEN [facility] [id number] Univers 13:00:00 13:00:00 [facility] Results Test Description Test Time Test Comments Results Result Comments Source POCT GRP A STREP (MOLECULAR) 2020-07-11 20:06:00 Test Item Value Reference Range Interpretation Comme nts POCT GP A STREP (test code = 76348-0) Negative Negative - Negat henry Lab Interpretation (test code = 45019-7) Normal [facility]
[2021-08-13] MEDS ORDERED: MORPHINE 4 MG/ML SYR ONE (17:00)
[2021-08-13] MEDS ORDERED: ONDANSETRON 4 MG/2 ML VIAL ONE (17:01)
[2021-08-13] MEDS ORDERED: NA CHLORIDE 0.9% 1,000 ML ONE (17:01)
[2021-08-13 17:17] LABS: Absolute Lymphocytes (CBC) 1.2 K/uL (0.7-4.9); Hematocrit 48.4 % (39.6-49.0); Lymphocytes % 6.4 % (15.3-44.8); MPV 7.6 fL (7.6-11.3); RBC Red Blood Cell Count 5.33 M/uL (4.33-5.43)
[2021-08-13 17:35] LABS: Albumin 4.3 g/dL (3.4-5.0); Potassium 3.6 mmol/L (3.5-5.1); Protein, Total 7.9 g/dL (6.4-8.2)
--- NOTE | 2021-08-13 17:47 | RAD REPORT ---
EXAM DESCRIPTION: RAD - Femur Right - 08/13/2021 5:40 pm CLINICAL HISTORY: fall COMPARISON: No comparisons FINDINGS: No bone or joint abnormality seen.
--- NOTE | 2021-08-13 18:01 | RAD REPORT ---
EXAM DESCRIPTION: CTAbdomen Pelvis W Contrast - 08/13/2021 5:55 pm CLINICAL HISTORY: Abdominal pain. abdominal pain, vomiting COMPARISON: <Comparisons> TECHNIQUE: Biphasic CT imaging of the abdomen and pelvis was performed with 100 ml non-ionic IV cont rast. All CT scans are performed using dose optimization technique as appropriate and may include automated exposure control or mA/KV adjustment according to patient size. FINDINGS: Postoperative changes left inferior chest. The liver, spleen, pancreas, adrenal glands and kidneys are within normal limits. Small cyst is prese nt posterior left kidney, benign in appearance. No bowel obstruction, free air, free fluid or abscess. Scattered colonic diverticulosis. The appendix is normal. No evidence of significant lymphadenopathy. No suspicious bony findings. IMPRESSION: No acute intra-abdominal or pelvic finding.
[2021-08-13 19:50] LABS: Urine Blood Negative (Negative); Urine Glucose Negative (Negative); Urine Protein Negative (Negative)
--- NOTE | 2021-08-13 20:10 | ER ---
Nurse's Notes [facility] Name: Huseyin Winkler Age: 26 yrs Sex: Male : 1995 Arrival Date: 08/13/2021 Time: 16:26 Bed 7 Private MD: Diagnosis: Abdominal pain, unspecified;Diarrhea, unspecified;Vomiting;Strain of adductor muscle, fascia and tendon of right thigh Presentation: 08/13 16:33 Chief complaint: Patient states: upper abd cramping, vomiting, fatigue, and chills that aa5 began this morning. Pt also states "I also was running and fell so my right leg is hurting". Coronavirus screen: chills, fatigue, nausea, vomiting. Ebola Screen: Patient denies travel to an Ebola-affected area in the 21 days before illness onset. Initial Sepsis Screen: Does the patient meet any 2 criteria? No. Patient's initial sepsis screen is negative. Does the patient have a suspected source of infection? No. Patient's initial sepsis screen is negative. Risk Assessment: Do you want to hurt yourself or someone else? Patient reports no desire to harm self or others. Onset of symptoms was July 2021. 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 - Social history:: Smoking status: Patient reports the use of cigarette tobacco products, 3-4 cigarettes a day . Screenin:59 Abuse screen: Denies threats or abuse. Denies injuries from another. Nutritional ph screening: No deficits noted. Tuberculosis screening: No symptoms or risk factors identified. Fall Risk None identified. Assessment: 17:00 General: Appears in no apparent distress. uncomfortable, slender, well groomed, ph Behavior is calm, cooperative, appropriate for age. Pain: Complains of pain in epigastric area. Neuro: Level of Consciousness is awake, alert, obeys commands, Oriented to person, place, time, situation. Cardiovascular: Capillary refill < 3 seconds in bilateral fingers Patient's skin is warm and dry. Respiratory: Airway is patent Respiratory effort is even, unlabored, Respiratory pattern is regular, symmetrical. GI: Abdomen is flat, non-distended, Reports upper abdominal pain, diarrhea, nausea, vomiting. Derm: Skin is intact, is healthy with good turgor, Skin is pink, warm \\T\\ dry. Musculoskeletal: Circulation, motion, and sensation intact. Range of motion: intact in all extremities. 19:21 Reassessment: pt seen resting in bed, eyes closed. General: Appears in no apparent kd3 distress. Behavior is calm, cooperative. Neuro: Level of Consciousness is awake, alert, obeys commands, Oriented to person, place, time, situation. Cardiovascular: Patient's skin is warm and dry. Respiratory: Airway is patent Trachea midline Respiratory effort is even, unlabored, Respiratory pattern is regular, symmetrical. 19:22 GI: Bowel sounds present X 4 quads. Abd is soft. kd3 Vital Signs: 16:33 BP 141 / 91; Pulse 83; Resp 20 S; Temp 98.1(TE); Pulse Ox 100% on R/A; Weight 88.45 kg aa5 (R); Height 5 ft. 11 in. (180.34 cm) (R); 18:00 BP 132 / 74; Pulse 78; Resp 18; Pulse Ox 98% on R/A; ph 19:23 BP 124 / 60; Resp 19; Pulse Ox 99% ; kd3 16:33 Body Mass Index 27.20 (88.45 kg, 180.34 cm) aa5 ED Course: 16:26 Patient arrived in ED. mr 16:26 Linus Daugherty PA is PHCP. [facility] 16:26 Nicolasa Sommer MD is Attending Physician. [facility] 16:33 Arm band placed on. aa 16:35 Triage completed. aa5 16:40 Radha Howard, EDGARD is Primary Nurse. ph 17:05 Initial lab(s) drawn, by nh, sent to lab. Inserted saline lock: 22 gauge in right ph antecubital area, using aseptic technique. Blood collected. 17:42 Femur Right XRAY In Process Unspecified. EDMS 17:57 CT Abd/Pelvis - IV Contrast Only In Process Unspecified. EDMS 18:00 Patient has correct armband on for positive identification. Bed in low position. Call light in reach. Side rails up X 1. property assessment monitor on. Pulse ox on. Door closed. Noise minimized. Warm blanket given. 19:11 Primary Nurse role handed off by Radha Howard RN as6 19:11 Tye Ward, EDGARD is Primary Nurse. as6 20:07 Papito Rivera MD is Referral Physician. [facility] 20:27 No provider procedures requiring assistance completed. IV discontinued, intact, as6 bleeding controlled, No redness/swelling at site. Pressure dressing applied. 20:28 Crutch training done. as6 Administered Medications: 17:09 Drug: NS 0.9% 1000 ml Route: IV; Rate: 1 bolus; Site: right antecubital; demarco 20:27 Follow up: Response: No adverse reaction; IV Status: Completed infusion; IV Intake: as6 1000ml 17:09 Drug: Zofran (Ondansetron) 4 mg Route: IVP; Site: right antecubital; demarco 17:10 Follow up: Response: No adverse reaction demarco 18:00 Follow up: Response: No adverse reaction; Nausea is decreased ph 17:09 Drug: morphine 4 mg Route: IVP; Infused Over: 4 mins; Site: right antecubital; demarco 17:10 Follow up: Response: No adverse reaction demarco 18:00 Follow up: Response: No adverse reaction; Pain is decreased; RASS: Drowsy (-1) ph Medication: 18:00 VIS not applicable for this client. ph Intake: 20:27 IV: 1000ml; Total: 1000ml. as6 Outcome: 20:10 Discharge ordered by . [facility] 20:28 Discharged to home ambulatory. as6 20:28 Condition: stable 20:28 Discharge instructions given to patient, Instructed on discharge instructions, follow up and referral plans. medication usage, crutch walking, Demonstrated understanding of instructions, follow-up care, medications, crutch walking, Prescriptions given X 3. 20:29 Patient left the ED. as6 Signatures: Dispatcher [employer] EDMS Linus Daugherty PA PA jmm RiveraCa mr UriarteZahira, RN RN aa5 Radha Howard, EDGARD RENE ph Tye Ward, EDGARD RN as6 Yu Garcia RN EDGARD kd3 Au-StagerCharlette RN RN demarco
--- NOTE | 2021-08-13 20:11 | EDPHYS ---
Physician Documentation [facility] Name: Huseyin Winkler Age: 26 yrs Sex: Male : 1995 Arrival Date: 08/13/2021 Time: 16:26 Bed 7 Private MD: ED Physician Nicolasa Sommer HPI: 08/13 16:33 This 26 yrs old Male presents to ER via Ambulatory with complaints of jmm Abdominal Pain. 16:33 The patient presents with abdominal pain. 26-year-old male with history of atrial jmm fibrillation the presents emerged department with complaints of diffuse abdominal pain, vomiting, diarrhea beginning earlier today. Patient also complains of right groin pain and thigh pain after a fall which occurred while running yesterday. Denies other known injury. Denies infectious exposure, denies recent antibiotic use, denies recent travel.. 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 - Social history:: Smoking status: Patient reports the use of cigarette tobacco products, 3-4 cigarettes a day . ROS: 16:33 Constitutional: Negative for fever, chills, and weight loss, Cardiovascular: Negative jmm for chest pain, palpitations, and edema, Respiratory: Negative for shortness of breath, cough, wheezing, and pleuritic chest pain. 16:33 Abdomen/GI: Positive for abdominal pain, nausea and vomiting, diarrhea. 16:33 MS/extremity: Positive for injury or acute deformity, pain. 16:33 All other systems are negative. Exam: 16:33 Constitutional: This is a well developed, well nourished patient who is awake, alert, jmm and in no acute distress. Head/Face: atraumatic. Eyes: EOMI, no conjunctival erythema appreciated ENT: Moist Mucus Membranes Neck: Trachea midline, Supple Chest/axilla: Normal chest wall appearance and motion. Cardiovascular: Regular rate and rhythm. No edema appreciated Respiratory: Normal respirations, no respiratory distress appreciated 16:33 Back: Normal ROM Skin: General appearance color normal 16:33 Neuro: Awake and alert Psych: Behavior is normal, Mood is normal, Patient is cooperative and pleasant 16:33 Abdomen/GI: Inspection: abdomen appears normal, Bowel sounds: normal, Palpation: soft, moderate abdominal tenderness, in all quadrants. 16:33 Musculoskeletal/extremity: ROM: intact in all extremities, right groin ttp, painful flexion noted to the right hip. Vital Signs: 16:33 BP 141 / 91; Pulse 83; Resp 20 S; Temp 98.1(TE); Pulse Ox 100% on R/A; Weight 88.45 kg aa5 (R); Height 5 ft. 11 in. (180.34 cm) (R); 18:00 BP 132 / 74; Pulse 78; Resp 18; Pulse Ox 98% on R/A; ph 19:23 BP 124 / 60; Resp 19; Pulse Ox 99% ; kd3 16:33 Body Mass Index 27.20 (88.45 kg, 180.34 cm) aa5 MDM: 16:33 Patient medically screened. [facility] 20:05 Data reviewed: vital signs, nurses notes. Counseling: I had a detailed discussion with [facility] the patient and/or guardian regarding: the historical points, exam findings, and any diagnostic results supporting the discharge/admit diagnosis, lab results, radiology results, the need for outpatient follow up, to return to the emergency department if symptoms worsen or persist or if there are any questions or concerns that arise at home. 08/13 16:34 Order name: CBC with Diff; Complete Time: 17:25 [facility] 08/13 16:34 Order name: CMP; Complete Time: 17:38 [facility] 08/13 16:34 Order name: Lipase; Complete Time: 17:38 [facility] 08/13 16:34 Order name: CT Abd/Pelvis - IV Contrast Only; Complete Time: 18:07 [facility] 08/13 16:43 Order name: Femur Right XRAY; Complete Time: 17:50 [facility] 08/13 19:50 Order name: Urine Dipstick-Ancillary; Complete Time: 19:55 [facility] 08/13 16:34 Order name: IV Saline Lock; Complete Time: 17:10 [facility] 08/13 16:34 Order name: Labs collected and sent; Complete Time: 17:10 [facility] 08/13 16:34 Order name: Urine Dipstick-Ancillary (obtain specimen); Complete Time: 19:45 [facility] 08/13 19:59 Order name: Crutches; Complete Time: 20:27 [facility] Administered Medications: 17:09 Drug: NS 0.9% 1000 ml Route: IV; Rate: 1 bolus; Site: right antecubital; demarco 20:27 Follow up: Response: No adverse reaction; IV Status: Completed infusion; IV Intake: as6 1000ml 17:09 Drug: Zofran (Ondansetron) 4 mg Route: IVP; Site: right antecubital; demarco 17:10 Follow up: Response: No adverse reaction demarco 18:00 Follow up: Response: No adverse reaction; Nausea is decreased ph 17:09 Drug: morphine 4 mg Route: IVP; Infused Over: 4 mins; Site: right antecubital; demarco 17:10 Follow up: Response: No adverse reaction demarco 18:00 Follow up: Response: No adverse reaction; Pain is decreased; RASS: Drowsy (-1) ph Disposition Summary: 08/13/21 20:10 Discharge Ordered Location: Home [facility] Condition: Stable jmm Diagnosis - Abdominal pain, unspecified jmm - Diarrhea, unspecified jmm - Vomiting jmm - Strain of adductor muscle, fascia and tendon of right thigh [facility] Followup: [facility] - With: Papito Rivera MD - When: 2 - 3 days - Reason: Recheck today's complaints, Continuance of care, Re-evaluation by your physician Discharge Instructions: - Discharge Summary Sheet jmm - Abdominal Pain, Adult jmm - Food Choices to Help Relieve Diarrhea, Adult jmm - Adductor Muscle Strain [facility] Forms: - Medication Reconciliation Form [facility] - Thank You Letter [facility] - Antibiotic Education [facility] - Prescription Opioid Use [facility] Prescriptions: - orphenadrine citrate 100 mg Oral Tablet Sustained Release - take 1 tablet by ORAL route 2 times per day As needed; 20 tablet; Refills: 0, [facility] Product Selection Permitted - ondansetron 4 mg Oral tablet,disintegrating - take 1 tablet by ORAL route every 4-6 hours; 20 tablet; Refills: 0, Product [facility] Selection Permitted - dicyclomine 20 mg Oral Tablet - take 1 tablet by ORAL route 4 times per day; 20 tablet; Refills: 0, Product [facility] Selection Permitted Signatures: Dispatcher [employer] Linus Eller PA PA jmm Calderon, Audri RN RN aa5 Charlette Bang RN RN ha Hall, Patricia RN Tye Ward RN as6
[2021-08-13 21:05] VITALS: TEMP 98.1
[2021-08-13 21:08] VITALS: BP 124/60; O2SAT 99
== END 2021-08-13 20:29 | disposition home or self-care (01) ==
LOC: ER 16:03
DX: S76.211A Strain of adductor muscle, fascia and tendon of right thigh, initial encounter (principal); W18.30XA Fall on same level, unspecified, initial encounter; Y93.02 Activity, running; Y92.9 Unspecified place or not applicable; R10.9 Unspecified abdominal pain; R19.7 Diarrhea, unspecified; R11.10 Vomiting, unspecified; Z88.0 Allergy status to penicillin; I48.91 Unspecified atrial fibrillation; F17.210 Nicotine dependence, cigarettes, uncomplicated
CPT/HCPCS: 96361; 85025; 36415; 81003; 83690; 80053; 74177; 73552; 96375; 96374; 99284; Q9967; J7030; J2405

== ENCOUNTER 2021-09-27 07:44 | Emergency (ER) | payer OTHER ==
[2021-09-27] MEDS ORDERED: dexAMETHasone 10 MG/ML VIAL ONE (08:36)
[2021-09-27] MEDS ORDERED: CLINDAMYCIN 900MG/D5W 900 MG/50 ML IVPB IV ONE (08:36)
[2021-09-27] MEDS ORDERED: KETOROLAC 30 MG/ML INJ ONE (08:36)
[2021-09-27] MEDS ORDERED: CEFTRIAXONE 1000 MG/VIAL ONE (08:36)
[2021-09-27] MEDS ORDERED: MAGNES/ALUMIN/SIMET 30ML UCUP ONE (08:36)
[2021-09-27] MEDS ORDERED: LIDOCAINE VISCOUS 2% SOLN 15 ML UDC ONE (08:37)
[2021-09-27] MEDS ORDERED: NA CHLORIDE 0.9% 1,000 ML ONE (08:37)
[2021-09-27 08:58] LABS: SARS-CoV-2 Antigen Rapid Res Negative (Negative)
[2021-09-27 09:03] LABS: Albumin 3.8 g/dL (3.4-5.0); Bilirubin Total 0.3 mg/dL (0.2-1.0); Potassium 4.2 mmol/L (3.5-5.1); Protein, Total 7.2 g/dL (6.4-8.2)
[2021-09-27 09:25] LABS: Absolute Lymphocytes (CBC) 2.7 K/uL (0.7-4.9); Hematocrit 44.4 % (39.6-49.0); Lymphocytes % 31.6 % (15.3-44.8); MCV 89.8 fL (80-100); MPV 7.6 fL (7.6-11.3); RBC Red Blood Cell Count 4.95 M/uL (4.33-5.43)
--- NOTE | 2021-09-27 09:29 | RAD REPORT ---
EXAM DESCRIPTION: CT - Soft Tissue Neck W/Contr - 09/27/2021 9:17 am CLINICAL HISTORY: Epiglottitis or tonsillitis suspected COMPARISON: No comparisons TECHNIQUE: During dynamic enhancement using 100 milliliters nonionic IV contrast, axial 5 millimeter thick images of the neck were obtained. All CT scans are performed using dose optimization technique as appropriate and may include automated exposure control or mA/KV adjustment according to patient size. FINDINGS: Intracranial portion the examination is unremarkable. No globe or orbital content abnormal ity. Mastoid air cells and paranasal sinuses are clear of acute disease. Patient has mild left maxill nu sinus mucosal thickening. No bony abnormality seen. No vascular abnormality identifiable. Pharyngeal mucosa is normal in size with no mass or asymmetry identifiable. Parapharyngeal fat is nor mal in appearance. Soft palate is not thickened or edematous. No tongue base abnormality seen. Tonsil lar tissue is symmetric in appearance with no thickening, edema or tonsillar mass identifiable. Epigl ottis is normal. A few small nonspecific bilateral cervical lymph nodes are present. No soft tissue neck mass identifi able. The parotid, submandibular and thyroid gland tissues are unremarkable. IMPRESSION: No tonsil or epiglottis abnormality seen. CT soft tissue neck examination shows no signi ficant finding.
[2021-09-27 11:01] VITALS: TEMP 98.7
[2021-09-27 11:27] VITALS: BP 126/79; O2SAT 100
--- OUTSIDE RECORDS SUMMARY | 2021-09-27 11:28 | XMS REPORT | Continuity of Care Document ---
:1995 Author Organization [facility] t Address [address] [place] [address] Care Team Providers Name Role Phone Pcp, Patient Does Not Have A Primary Care Physician [id number] Ebraargenis FLUE GAS ANALYSTLaura Attending Clinician FARZANA COLEMAN Attending Clinician Unavailable [place] FLUE GAS ANALYSTFarzana Schrader Attending Clinician Quyen FLUE GAS ANALYSTMima Schrader Attending Clinician Doctor Unassigned, [place] Attending Clinician Unavailable ROX RANGEL Attending Clinician Unavailable SHAI WILD Attending Clinician Unavailable Lab, Adc Fam Pob I Attending Clinician Unavailable Chad Dash MD Attending Clinician CHAD DASH Attending Clinician Unavailable Colleen Tesha HSIEH Attending Clinician Rox Rangel MD Attending Clinician Provider, [facility] Attending Clinician Unavailable Unknown, Attending Attending Clinician Unavailable UNKNOWN, ATTENDING Attending Clinician Unavailable MIMA NAPIER Attending Clinician Unavailable Payers Payer Name Policy Type Policy Number Effective Date Expiration Date [facility] [id number] 2020 GLOBAL 00:00:00 Problems Condition Condition Condition Status Onset Resolution Last Treating Co mments Source Name Details Category Date Date Treatment Clinician Date No known No known Disease Unive rs active active ity of problems problems [facility] Allergies, Adverse Reactions, Alerts Allergy Allergy Status Severity Reaction(s) Onset Inactive Treating Comm ents Source Name Type Date Date Clinician PENICILL DRUG Active High Anaphylaxis Uni vers IN INGREDI 3-13 ity of 00:00: [place] 00 [facility] Penicill Propensi Active Anaphylaxis U nivers in ty to 05-08 ity of adverse 00:00: [place] reaction 00 Medical s Branch NO KNOWN Drug Active Univers ALLERGIE Class ity of S [facility] Social History Social Habit Start Date Stop Date Quantity Comments Source History of tobacco Cigarette Smoker University of use [facility] Exposure to 2021-07-21 2021-07-31 Not sure [facility] SARS-CoV-2 (event) 00:00:00 13:28:00 [facility] Alcohol intake 2021-07-31 2021-07-31 .29 /d University of 00:00:00 00:00:00 [facility] Cigarettes smoked 2020-05-08 2020-05-08 Univers ity of current (pack per 00:00:00 00:00:00 ) - Reported Branch Cigarette 2020-05-08 2020-05-08 University of pack-years 00:00:00 00:00:00 [facility] Tobacco use and 2020-05-08 2020-05-08 Never used Universit y of exposure 00:00:00 00:00:00 [facility] Sex Ass[birth year] At [birth year] Universit y of 00:00:00 00:00:00 [facility] Smoking Status Start Date Stop Date Source Current every day smoker 2020-05-08 00:00:00 Uni versity of [facility] Medications Ordered Filled Start Stop Current Ordering Indication Dosage Frequency Signature Comments Components Source Medication Medication Date Date Medication? Clinician (SIG) Name Name meclizine Yes [id number] 25mg Take 1 U nivers 25 mg 3-04 tablet by ity of tablet 00:00: mouth 3 (three) Medical times [place] daily as needed for Dizziness. meclizine Yes [id number] 25mg Take 1 U nivers 25 mg 3-04 tablet by ity of tablet 00:00: mouth 3 00 (three) Medical times [place] daily as needed for Dizziness. meclizine Yes [id number] 25mg Take 1 U nivers 25 mg 3-04 tablet by ity of tablet 00:00: mouth 3 [place] 00 (three) Medical times Branch daily as needed for Dizziness. meclizine Yes [id number] 25mg Take 1 U nivers 25 mg 3-04 tablet by ity of tablet 00:00: mouth 3 [place] 00 (three) Medical times Branch daily as needed for Dizziness. ibuprofen 2020- No [id number] 800mg Take 1 Univers 800 mg 5--11 tablet by ity of tablet 00:00: 04:59 mouth [place] 00 :00 every 6 Medical (six) Branch hours for 10 days. ibuprofen 2020- No [id number] 800mg Take 1 Univers 800 mg 5--11 tablet by ity of tablet 00:00: 04:59 mouth [place] 00 :00 every 6 Medical (six) Branch hours for 10 days. ibuprofen 2020- No [id number] 800mg Take 1 Univers 800 mg 07-26-11 tablet by ity of tablet 00:00: 04:59 mouth [place] 00 :00 every 6 Medical (six) Branch hours for 10 days. acetaminoph 2020- No [id number] 1{tbl} Take 1 U nivers en-codeine - 06-06 tablet by ity of (TYLENOL-CO 00:00: 04:[place] DEINE #3[place] 00 :00 every 6 Medical 300-30 mg (six) Branch tablet hours as needed for Pain (scale 7-10) for up to 5 days. Indication s: acute pain acetaminoph 2020- No 4647 1{tbl} Take 1 U nivers en-codeine - 06-06 tablet by ity of (TYLENOL-CO 00:00: 04:59 [place] DE[place] #3[place] 00 :00 every 6 Medical 300-30 mg (six) Branch tablet hours as needed for Pain (scale 7-10) for up to 5 days. Indication s: acute pain acetaminoph No 4647 1{tbl} Take 1 U nivers en-codeine 5-31 06-06 tablet by ity of (TYLENOL-CO 00:00: 04:59 [place] DEINE #3) 00 :00 every 6 Medical 300-30 mg (six) Branch tablet hours as needed for Pain (scale 7-10) for up to 5 days. Indication s: acute pain azithromyci 2020-0 Yes [id number] 250mg Take 1 Univers n 5-16 tablet by ity of (ZITHROMAX 00:00: mouth [place] Z-ZITA) 250 00 SEE-INSTRU Med ical mg tablet CTIONS. Branch Please dispense a z pack azithromyci 2020-0 Yes [id number] 250mg Take 1 Univers n 5-16 tablet by ity of (ZITHROMAX 00:00: mouth [place] Z-ZITA) 250 00 SEE-INSTRU Med ical mg tablet CTIONS. Branch Please dispense a z pack azithromyci 2020- Yes [id number] 250mg Take 1 Univers n 5-16 tablet by ity of (ZITHROMAX 00:00: mouth [place] Z-ZITA) 250 00 SEE-INSTRU Med ical mg tablet CTIONS. Branch Please dispense a z pack azithromyci 2020- Yes [id number] 250mg Take 1 Univers n 5-16 tablet by ity of (ZITHROMAX 00:00: mouth [place] Z-ZITA) 250 00 SEE-INSTRU Med ical mg tablet CTIONS. Branch Please dispense a z pack azithromyci 2020- Yes [id number] 250mg Take 1 Univers n 5-16 tablet by ity of (ZITHROMAX 00:00: mouth [place] Z-ZITA) 250 00 SEE-INSTRU Med ical mg tablet CTIONS. Branch Please dispense a z pack azithromyci 2020- Yes [id number] 250mg Take 1 Univers n 5-16 tablet by ity of (ZITHROMAX 00:00: mouth [place] Z-ZITA) 250 00 SEE-INSTRU Med ical mg tablet CTIONS. Branch Please dispense a z pack azithromyci 2020-0 Yes [id number] 250mg Take 1 Univers n 5-16 tablet by ity of (ZITHROMAX 00:00: mouth [place] Z-ZITA) 250 00 SEE-INSTRU Med ical mg tablet CTIONS. Branch Please dispense a z pack azithromyci 2020- Yes [id number] 250mg Take 1 Univers n 5-16 tablet by ity of (ZITHROMAX 00:00: mouth [place] Z-ZITA) 250 00 SEE-INSTRU Med ical mg tablet CTIONS. Branch Please dispense a z pack azithromyci Yes [id number] 250mg Take 1 Univers n 5-16 tablet by ity of (ZITHROMAX 00:00: mouth [place] Z-ZITA) 250 00 SEE-INSTRU Med ical mg tablet CTIONS. Branch Please dispense a z pack azithromyci Yes [id number] 250mg Take 1 Univers n 5-16 tablet by ity of (ZITHROMAX 00:00: mouth [place] Z-ZITA) 250 00 SEE-INSTRU Med ical mg tablet CTIONS. Branch Please dispense a z pack azithromyci Yes [id number] 250mg Take 1 Univers n 5-16 tablet by ity of (ZITHROMAX 00:00: mouth [place] Z-ZITA) 250 00 SEE-INSTRU Med ical mg tablet CTIONS. Branch Please dispense a z pack azithromyci Yes [id number] 250mg Take 1 Univers n 5-16 tablet by ity of (ZITHROMAX 00:00: mouth [place] Z-ZITA) 250 00 SEE-INSTRU Med ical mg tablet CTIONS. Branch Please dispense a z pack azithromyci Yes [id number] 250mg Take 1 Univers n 5-16 tablet by ity of (ZITHROMAX 00:00: mouth [place] Z-ZITA) 250 00 SEE-INSTRU Med ical mg tablet CTIONS. Branch Please dispense a z pack azithromyci Yes [id number] 250mg Take 1 Univers n 5-16 tablet by ity of (ZITHROMAX 00:00: mouth [place] Z-ZITA) 250 00 SEE-INSTRU Med ical mg tablet CTIONS. Branch Please dispense a z pack azithromyci Yes [id number] 250mg Take 1 Univers n 5-16 tablet by ity of (ZITHROMAX 00:00: mouth [place] Z-ZITA) 250 00 SEE-INSTRU Med ical mg tablet CTIONS. Branch Please dispense a z pack ibuprofen 2020- No [id number] 600mg Take 1 Univers 600 mg 3-13 -19 tablet by ity of tablet 00:00: 04:59 mouth [place] 00 :00 every 6 Medical (six) Branch hours as needed for Pain (scale 4-6) for up to 5 days. No known No Univers medications [facility] Vital Signs Vital Name Observation Time Observation Value Comments Source Systolic blood 2021-07-31 18:27:00 127 mm[Hg] Univer sity of [facility] Diastolic blood 2021-07-31 18:27:00 86 mm[Hg] Unive rsity of [facility] Heart rate 2021-07-31 18:27:00 106 /min Universi ty of [facility] Body temperature 2021-07-31 18:27:00 36.94 [facility] Respiratory rate 2021-07-31 18:27:00 17 /min [facility] Body height 2021-07-31 18:27:00 180.3 cm Universi ty of [facility] Body weight 2021-07-31 18:27:00 85.095 kg Universi ty of [place] [facility] Branch BMI 2021-07-31 18:27:00 26.16 kg/m2 Universi ty of [facility] Oxygen saturation in 2021-07-31 18:27:00 97 /min University of Arterial blood by [facility] Pulse oximetry Branch Body height 2020-07-26 18:28:00 180.3 cm Universi ty of [facility] Body weight 2020-07-26 18:28:00 86.183 kg Universi ty of [place] [facility] BMI 2020-07-26 18:28:00 26.50 kg/m2 Universi ty of [place] [facility] Branch Oxygen saturation in 2020-07-26 18:28:00 96 /min University of Arterial blood by [facility] Pulse oximetry Branch Systolic blood 2020-07-26 18:28:00 129 mm[Hg] Univer sity of [facility] Diastolic blood 2020-07-26 18:28:00 71 mm[Hg] Unive rsity of [facility] Heart rate 2020-07-26 18:28:00 60 /min Universi ty of [facility] Body temperature 2020-07-26 18:28:00 36.44 [place] Univ ersity of [place] [facility] Respiratory rate 2020-07-26 18:28:00 12 /min Univ ersity of [place] [facility] Systolic blood 2020-07-11 19:46:00 119 mm[Hg] Univer sity of pressure [place] [facility] Diastolic blood 2020-07-11 19:46:00 71 mm[Hg] Unive rsity of pressure [place] [facility] Heart rate 2020-07-11 19:46:00 74 /min Universi ty of [place] [facility] Body temperature 2020-07-11 19:46:00 36.89 [place] Univ ersity of [place] [facility] Respiratory rate 2020-07-11 19:46:00 18 /min Univ ersity of [place] [facility] Body height 2020-07-11 19:46:00 180.3 cm Universi ty of [place] [facility] Body weight 2020-07-11 19:46:00 86.807 kg Universi ty of [place] [facility] BMI 2020-07-11 19:46:00 26.69 kg/m2 Universi ty of [place] [facility] Oxygen saturation in 2020-07-11 19:46:00 98 /min University of Arterial blood by [place] Vittana agata Pulse oximetry Branch Systolic blood 2020-05-08 19:28:00 126 mm[Hg] Univer sity of pressure [place] [facility] Diastolic blood 2020-05-08 19:28:00 79 mm[Hg] Unive rsity of pressure [place] [facility] Heart rate 2020-05-08 19:28:00 88 /min Universi ty of [place] [facility] Body temperature 2020-05-08 19:28:00 37.28 [place] Univ ersity of [place] [facility] Respiratory rate 2020-05-08 19:28:00 18 /min Univ ersity of [place] [facility] Body height 2020-05-08 19:28:00 180.3 cm Universi ty of [place] [facility] Body weight 2020-05-08 19:28:00 87.544 kg Universi ty of [place] [facility] BMI 2020-05-08 19:28:00 26.92 kg/m2 Universi ty of [place] [facility] Oxygen saturation in 2020-05-08 19:28:00 99 /min University of Arterial blood by [employer] agata Pulse oximetry Branch Systolic blood 2020-05-08 19:28:00 126 mm[Hg] Univer sity of pressure [place] [facility] Diastolic blood 2020-05-08 19:28:00 79 mm[Hg] Unive rsity of [facility] Heart rate 2020-05-08 19:28:00 88 /min [facility] Body temperature 2020-05-08 19:28:00 37.28 [place] [facility] Respiratory rate 2020-05-08 19:28:00 18 /min [facility] Body height 2020-05-08 19:28:00 180.3 cm [facility] Body weight 2020-05-08 19:28:00 87.544 kg [facility] BMI 2020-05-08 19:28:00 26.92 kg/m2 [facility] Oxygen saturation in 2020-05-08 19:28:00 99 /min [facility] Arterial blood by [facility] Pulse oximetry Branch Procedures Procedure Date / Time Performed Performing Clinician Claudine e XR SHOULDER 2+ VW 2021-07-31 18:58:[address] [facility] ASSIGNMENT OF BENEFITS 2021-07-31 18:22:34 Doctor Unassigned, No [facility] POCT GRP A STREP 2020-07-11 19:57:00 Chad Dash [facility] (MOLECULAR) [facility] ASSIGNMENT OF BENEFITS 2020-07-11 19:28:40 Doctor Unassigned, No [facility] Encounters Start End Encounter Admission Attending Care Care Encounter Source Date/Time Date/Time Type Type Clinicians Facility Department ID 2021-08-02 2021-08-02 [facility] [id number] [facility] 00:00:00 00:00:00 Jambool [id number] it y of [place] [id number] [place] as LIZBET?BLEA [phone] [address] MEDICAL OFFICE BUILDING 2021-07-31 2021-07-31 Outpatient R [place] [facility] [id number] [facility] 13:44:56 23:59:00 FARZANA [facility] 2021-07-31 2021-07-31 Hospital [facility] [id number] Univers 13:44:56 23:59:[address] [facility] [id number] ity of [place] [id number] Sampson as LIZBET?BLEA [id number] [facility] TARIQ [address] [place] MEDICAL OFFICE [facility] 2021-07-31 2021-07-31 Urgent Farzana Coleman [facility] 1.2.840. [id number] Univers 13:40:00 14:48:13 Care [place] [facility] [id number] ity of [place] [id number] Sampson as LIZBET?BLEA [phone] Ca dical AMOL [address] MEDICAL OFFICE [facility] 2021-07-31 2021-07-31 Outpatient R [facility] [id number] Univers 13:40:00 13:40:00 [id number] ity [facility] 2021-07-31 2021-07-31 Orders Doctor [place] 1.2.840.114 [id number] Univers 00:00:00 00:00:00 Only Unassigned, GOMEZ [id number] ity of [place] [facility] [id number] Sampson as [phone] [address] 2021-04-29 2021-04-29 Outpatient Radha RANGEL [facility] [id number] Univers 19:00:00 19:06:29 ROX [facility] 2021-04-29 2021-04-29 Outpatient R [facility] [id number] Univers 19:00:00 19:00:00 [id number] [facility] 2020-11-04 2020-11-04 Outpatient R JUNITO [facility] [id number] Univers 13:30:00 13:30:00 SHAI [id number] [facility] 2020-11-04 2020-11-04 [facility] [id number] Univers 13:30:00 13:30:00 SHAI [facility] 2020-10-22 2020-10-22 Letter Doctor RAINA 1.2.840.114 [id number] Univers 00:00:00 00:00:00 (Out) Unassigned, GOMEZ [id number] ity of [place] [facility] [id number] Sampson as [phone] [address] 2020-10-22 2020-10-22 Letter Doctor RAINA 1.2.840.114 [id number] Univers 00:00:00 00:00:00 (Out) Unassigned, GOMEZ [id number] ity of [place] [facility] [id number] Sampson as [phone] [address] 2020-09-19 2020-09-19 Laboratory Lab, [facility] 1.2. 840.114 [id number] Univers 16:47:20 17:07:20 Only [facility] 350.1.13. 10 ity of [place] [id number] Sampson as Professio [phone] [address] Office [facility] 2020-09-19 2020-09-19 Outpatient R [facility] [id number] Univers 16:40:00 16:40:00 [id number] ity [facility] 2020-09-19 2020-09-19 [id number] Univers 16:40:00 16:40:00 , CHAD ity [facility] 2020-09-10 2020-09-10 Telephone [facility] [id number] Univers 00:00:00 00:00:00 [facility] [id number] ity of [place] [id number] [place] as Professio [phone] [address] Office Building One 2020-09-09 2020-09-09 Laboratory Lab, Adc Fam Po I [facility] 1.2. 840.114 [id number] Univers 20:00:48 20:20:48 Only Rox [facility] [id number] ity of [place] [id number] [place]pson as Professio [phone] Ca dic[address] Office [facility] 2020-09-09 2020-09-09 Outpatient R [facility] [id number] Univers 20:00:00 20:00:00 [id number] ity [facility] 2020-09-09 2020-09-09 Outpatient R CLAIRE, [facility] [id number] Univers 20:00:00 20:00:00 ROX ity [facility] 2020-07-26 2020-07-26 Urgent Provider, [facility] 1.2.840.114 [id number] Univers 13:26:34 13:41:05 Care Unknown, [facility] [id number] ity of Mima [place] [id number] [place] Professio [id number] [address] One 2020-07-26 2020-07-26 Outpatient R [facility] [id number] Univers 13:40:00 13:40:00 [id number] ity of [facility] 2020-07-26 2020-07-26 Outpatient R GAYLA, [facility] [id number] Univers 13:40:00 13:40:00 ATTENDING ity [facility] 2020-07-11 2020-07-11 Urgent Provider, [facility] 1.2.840.114 [id number] Univers 14:29:52 15:27:13 Care Mima [place] [facility] [id number] ity jose a Rodas [id number] [place] as Professio [phone] [address] Office [facility] One 2020-07-11 2020-07-11 Outpatient R [facility] [id number] Univers 14:40:00 14:40:00 [id number] ity [facility] 2020-07-11 2020-07-11 Outpatient R [facility] [id number] Univers 14:40:00 14:40:00 ity [facility] 2020-07-11 2020-07-11 Orders Doctor [place] 1.2.840.114 [id number] Univers 00:00:00 00:00:00 Only Unassigned, GOMEZ [id number] ity of [place] [facility] [id number] Sampson as [phone] [address] 2020-05-08 2020-05-08 Urgent [facility] 1.2.840.114 [id number] 13:23:37 13:43:37 [facility] [id number] [place] [id number] Professio [id number] [place] [address] Office Building One 2020-05-08 2020-05-08 Urgent Tesha Macias [facility] 1.2.840 .114 [id number] [facility] 13:23:37 13:43:37 Care Quyen [facility] 350..13.10 ity of [place] [id number] Sampson as Professio [phone] Ca dical [address] Office Building [facility] 2020-05-08 2020-05-08 [facility] [id number] [address] [place] [address] 13:00:00 13:00:00 [facility] Results Test Description Test Time Test Comments Results Result Comments Source POCT GRP A STREP (MOLECULAR) 2020-07-11 20:06:00 Test Item Value Reference Range Interpretation Comme nts POCT GP A STREP (test code = 06833-1) Negative Negative - Negat henry Lab Interpretation (test code = 74363-5) Normal [facility]
--- NOTE | 2021-09-28 07:23 | EKG ---
Test Date: 2021-09-27 Test Time: 09:35:38 Director Of Teacher Education: MANUEL MEASUREMENT RESULTS: Intervals: Rate: 50 KS: 176 QRSD: 92 QT: 408 QTc: 371 [place]: P: 68 KS: 176 QRS: 70 T: 42 INTERPRETIVE STATEMENTS: Sinus bradycardia Cannot rule out Anterior infarct, age undetermined Abnormal ECG Compared to ECG 11/14/2020 02:59:52 Myocardial infarct finding now present Electronically Signed On 09-28-21 07:19:33 CDT by Fernie Matos
--- NOTE | 2021-09-28 10:06 | ER ---
Nurse's Notes [facility] Name: Huseyin Winkler Age: 26 yrs Sex: Male : 1995 Arrival Date: 09/27/2021 Time: 07:46 Bed 6 Private MD: Diagnosis: Acute tonsillitis, unspecified Presentation: 09/27 07:52 Chief complaint: Patient states: sore throat since last night, worse today , having a iw hard time opening his mouth, jaw feels swollen on right side. Coronavirus screen: sore throat. Ebola Screen: Patient negative for fever greater than or equal to 101.5 degrees Fahrenheit, and additional compatible Ebola Virus Disease symptoms Patient denies exposure to infectious person. Patient denies travel to an Ebola-affected area in the 21 days before illness onset. No symptoms or risks identified at this time. Initial Sepsis Screen: Does the patient meet any 2 criteria? No. Patient's initial sepsis screen is negative. Does the patient have a suspected source of infection? No. Patient's initial sepsis screen is negative. Risk Assessment: Do you want to hurt yourself or someone else? Patient reports no desire to harm self or others. Onset of symptoms was September 27, 2021. 07:52 Method Of Arrival: Ambulatory iw 07:52 Acuity: MIAN 4 iw 07:56 Acuity: MIAN 3 iw Triage Assessment: 07:57 General: Appears in no apparent distress. comfortable, Behavior is cooperative, bp appropriate for age, anxious. Pain: Complains of pain in neck. EENT: Reports pain when swallowing. Neuro: No deficits noted. Cardiovascular: No deficits noted. Respiratory: No deficits noted. GI: No signs and/or symptoms were reported involving the gastrointestinal system. : No signs and/or symptoms were reported regarding the genitourinary system. Derm: No deficits noted. Musculoskeletal: No deficits noted. 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 - Social history:: Smoking status: Patient reports the use of cigarette tobacco products, Reported history of juuling and/or vaping. Screenin:57 Abuse screen: Denies threats or abuse. Denies injuries from another. Nutritional bp screening: No deficits noted. Tuberculosis screening: No symptoms or risk factors identified. Fall Risk None identified. 07:58 Abuse screen: Denies threats or abuse. Nutritional screening: No deficits noted. tw2 Tuberculosis screening: No symptoms or risk factors identified. Assessment: 07:57 General: SEE TRIAGE NOTE. bp 08:18 Reassessment: provider at bedside at this time. tw2 09:32 Respiratory: Airway is patent Respiratory effort is even, unlabored, Respiratory tw2 pattern is regular, symmetrical, na. EENT: Throat is reddened Reports pain when swallowing. 10:21 Reassessment: Patient appears in no apparent distress at this time. Patient and/or tw2 family updated on plan of care and expected duration. Pain level reassessed. Patient is alert, oriented x 3, equal unlabored respirations, skin warm/dry/pink. Patient states feeling better. 10:40 Reassessment: provider at bedside with results and discharge information at this time. tw2 Vital Signs: 07:52 BP 144 / 86; Pulse 56; Resp 16; Temp 98.7(TE); Pulse Ox 100% on R/A; Weight 79.83 kg; iw Height 5 ft. 11 in. (180.34 cm); 08:54 BP 117 / 68; Pulse 65; Resp 16; Pulse Ox 99% ; bp 10:21 BP 126 / 79; Pulse 55; Resp 17; Pulse Ox 100% on R/A; tw2 07:52 Body Mass Index 24.55 (79.83 kg, 180.34 cm) iw ED Course: 07:46 Patient arrived in ED. mr 07:55 Triage completed. iw 07:56 Vance Bird, RN is Primary Nurse. bp 07:56 Arm band placed on. iw 07:57 Guy Sr MD is Attending Physician. fannie 07:57 Patient has correct armband on for positive identification. Bed in low position. Call bp light in reach. Side rails up X2. 08:30 Inserted saline lock: 20 gauge in left forearm, using aseptic technique. Blood bp collected. 09:18 CT Soft Tissue Neck W/contr In Process Unspecified. EDMS 10:41 No provider procedures requiring assistance completed. IV discontinued, intact, tw2 bleeding controlled, No redness/swelling at site. Pressure dressing applied. Administered Medications: 08:32 Drug: GI Cocktail without - (Maalox Suspension 30 ml, Lidocaine Liquid 2 % 15 tw2 ml) Route: PO; 09:11 Follow up: Response: No adverse reaction; Pain is decreased tw2 08:33 Drug: Ketorolac 30 mg Route: IVP; Site: left wrist; tw2 09:11 Follow up: Response: No adverse reaction; Pain is decreased; RASS: Alert and Calm (0) tw2 08:33 Drug: NS 0.9% 1000 ml Route: IV; Rate: 1 bolus; Site: left wrist; tw2 10:22 Follow up: Response: No adverse reaction; IV Status: Completed infusion; IV Intake: tw2 1000ml 08:34 Drug: Rocephin (cefTRIAXone) 1 grams Route: IV; Rate: per protocol; Site: left wrist; tw2 08:40 Follow up: Response: No adverse reaction; IV Status: Completed infusion; IV Intake: [id number] 08:40 Drug: Decadron - Dexamethasone 10 mg Route: IVP; Site: left wrist; tw2 09:11 Follow up: Response: No adverse reaction tw2 08:43 Drug: Clindamycin 900 mg Route: IVPB; Infused Over: 30 mins; Site: left wrist; tw2 09:10 Follow up: Response: No adverse reaction; IV Status: Completed infusion; IV Intake: [id number] Medication: 07:57 VIS not applicable for this client. bp Intake: 08:40 IV: 10ml; Total: 10ml. tw2 09:10 IV: 50ml; Total: 60ml. tw2 10:22 IV: 1000ml; Total: 1060ml. tw2 Outcome: 09:48 Discharge ordered by MD. greco 10:41 Discharged to home ambulatory. tw2 10:41 Condition: stable 10:41 Discharge instructions given to patient, Instructed on discharge instructions, follow up and referral plans. medication usage, Demonstrated understanding of instructions, follow-up care, medications, Prescriptions given X 2. 10:42 Patient left the ED. tw2 Signatures: Dispatcher [employer] EDMS Guy Sr MD MD cha Rivera, Anca Diop RN RN iw Berenice Stephenson RN RN tw2 Vance Bird RN RN bp Corrections: (The following items were deleted from the chart) 07:57 07:52 Chief complaint: Patient states: sore throat since last night, worse today iw iw 08:41 07:52 BP 144 / 86; Pulse 56bpm; Resp 16bpm; Pulse Ox 100% RA; 79.83 kg; Height 5 ft. 11 iw in.; BMI: 24.5; iw
--- NOTE | 2021-09-28 10:06 | EDPHYS ---
Physician Documentation [facility] Name: Huseyin Winkler Age: 26 yrs Sex: Male : 1995 Arrival Date: 09/27/2021 Time: 07:46 Bed 6 Private MD: CHAPO Physician Guy Sr HPI: 09/27 09:39 This 26 yrs old Male presents to ER via Ambulatory with complaints of Sore fannie Throat. 09:39 The patient presents with sore throat. The patient describes throat pain as constant, fannie raw. Onset: The symptoms/episode began/occurred 2 day(s) ago. Severity of symptoms: At their worst the symptoms were mild, moderate, in the emergency department the symptoms are unchanged. Modifying factors: The symptoms are alleviated by nothing, the symptoms are aggravated by swallowing. Associated signs and symptoms: The patient has no apparent associated signs or symptoms. The patient has not experienced similar symptoms in the past. 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 - Social history:: Smoking status: Patient reports the use of cigarette tobacco products, Reported history of juuling and/or vaping. ROS: 09:42 Constitutional: Negative for fever, chills, and weight loss, Eyes: Negative for injury, fannie pain, redness, and discharge, Neck: Negative for injury, pain, and swelling, Cardiovascular: Negative for chest pain, palpitations, and edema, Respiratory: Negative for shortness of breath, cough, wheezing, and pleuritic chest pain, Abdomen/GI: Negative for abdominal pain, nausea, vomiting, diarrhea, and constipation, Back: Negative for injury and pain, : Negative for injury, bleeding, discharge, and swelling, MS/Extremity: Negative for injury and deformity, Skin: Negative for injury, rash, and discoloration, Neuro: Negative for headache, weakness, numbness, tingling, and seizure, Psych: Negative for depression, anxiety, suicide ideation, homicidal ideation, and hallucinations, Allergy/Immunology: Negative for hives, rash, and allergies, Endocrine: Negative for neck swelling, polydipsia, polyuria, polyphagia, and marked weight changes, Hematologic/Lymphatic: Negative for swollen nodes, abnormal bleeding, and unusual bruising. 09:42 ENT: Positive for sore throat. Exam: 09:42 Constitutional: This is a well developed, well nourished patient who is awake, alert, fannie and in no acute distress. Head/Face: Normocephalic, atraumatic. Eyes: Pupils equal round and reactive to light, extra-ocular motions intact. Lids and lashes normal. Conjunctiva and sclera are non-icteric and not injected. Cornea within normal limits. Periorbital areas with no swelling, redness, or edema. Neck: Trachea midline, no thyromegaly or masses palpated, and no cervical lymphadenopathy. Supple, full range of motion without nuchal rigidity, or vertebral point tenderness. No Meningismus. Chest/axilla: Normal chest wall appearance and motion. Nontender with no deformity. No lesions are appreciated. Cardiovascular: Regular rate and rhythm with a normal S1 and S2. No gallops, murmurs, or rubs. Normal PMI, no JVD. No pulse deficits. Respiratory: Lungs have equal breath sounds bilaterally, clear to auscultation and percussion. No rales, rhonchi or wheezes noted. No increased work of breathing, no retractions or nasal flaring. Abdomen/GI: Soft, non-tender, with normal bowel sounds. No distension or tympany. No guarding or rebound. No evidence of tenderness throughout. Back: No spinal tenderness. No costovertebral tenderness. Full range of motion. Male : Normal genitalia with no discharge or lesions. Skin: Warm, dry with normal turgor. Normal color with no rashes, no lesions, and no evidence of cellulitis. MS/ Extremity: Pulses equal, no cyanosis. Neurovascular intact. Full, normal range of motion. Neuro: Awake and alert, GCS 15, oriented to person, place, time, and situation. Cranial nerves II-XII grossly intact. Motor strength 5/5 in all extremities. Sensory grossly intact. Cerebellar exam normal. Normal gait. Psych: Awake, alert, with orientation to person, place and time. Behavior, mood, and affect are within normal limits. 09:42 ENT: Posterior pharynx: Tonsils: enlarged on the right, with erythema, Uvula: normal, midline, erythema, swelling, is not appreciated, erythema, that is mild, exudate, is not appreciated, peritonsillar mass, is not appreciated, pooling of secretions, is not appreciated. 09:47 ECG was reviewed by the Attending Physician. [facility] Vital Signs: 07:52 BP 144 / 86; Pulse 56; Resp 16; Temp 98.7(TE); Pulse Ox 100% on R/A; Weight 79.83 kg; iw Height 5 ft. 11 in. (180.34 cm); 08:54 BP 117 / 68; Pulse 65; Resp 16; Pulse Ox 99% ; bp 10:21 BP 126 / 79; Pulse 55; Resp 17; Pulse Ox 100% on R/A; tw2 07:52 Body Mass Index 24.55 (79.83 kg, 180.34 cm) iw MDM: 07:57 Patient medically screened. [facility] 09:44 Differential diagnosis: cocksackie virus, epiglottitis, group A strep tonsillitis, fannie pharyngitis. Data reviewed: vital signs, nurses notes, lab test result(s), radiologic studies, CT scan. Data interpreted: car escort: rate is 65 beats/min, rhythm is regular, Pulse oximetry: on room air is 99 %. Test interpretation: by ED physician or midlevel provider: ECG. Counseling: I had a detailed discussion with the patient and/or guardian regarding: the historical points, exam findings, and any diagnostic results supporting the discharge/admit diagnosis, lab results, radiology results, the need for outpatient follow up, for definitive care, a family practitioner. 09/27 07:56 Order name: Strep; Complete Time: 09:31 09/27 08:07 Order name: SARS RAPID; Complete Time: 09:31 [facility] 09/27 08:24 Order name: CBC with Diff; Complete Time: :31 [facility] 09/27 08:24 Order name: Comprehensive Metabolic Panel; Complete Time: 09:31 [facility] 09/27 08:24 Order name: CT Soft Tissue Neck W/contr; Complete Time: 09:31 [facility] 09/27 08:38 Order name: Throat Culture [facility] 09/27 09:28 Order name: EKG; Complete Time: 09:34 [facility] 09/27 09:28 Order name: EKG - Nurse/Tech; Complete Time: 09:30 [facility] EC:47 Rate is 50 beats/min. Rhythm is regular. QRS Berwind is Normal. MA interval is normal. QRS fannie interval is normal. QT interval is normal. No Q waves. T waves are Normal. No ST changes noted. Clinical impression: Sinus bradycardia and No evidence of ischemia. Interpreted by me. Reviewed by me. Administered Medications: 08:32 Drug: GI Cocktail without - (Maalox Suspension 30 ml, Lidocaine Liquid 2 % 15 tw2 ml) Route: PO; 09:11 Follow up: Response: No adverse reaction; Pain is decreased tw2 08:33 Drug: Ketorolac 30 mg Route: IVP; Site: left wrist; tw2 09:11 Follow up: Response: No adverse reaction; Pain is decreased; RASS: Alert and Calm (0) tw2 08:33 Drug: NS 0.9% 1000 ml Route: IV; Rate: 1 bolus; Site: left wrist; tw2 10:22 Follow up: Response: No adverse reaction; IV Status: Completed infusion; IV Intake: tw2 1000ml 08:34 Drug: Rocephin (cefTRIAXone) 1 grams Route: IV; Rate: per protocol; Site: left wrist; tw2 08:40 Follow up: Response: No adverse reaction; IV Status: Completed infusion; IV Intake: [id number] 08:40 Drug: Decadron - Dexamethasone 10 mg Route: IVP; Site: left wrist; tw2 09:11 Follow up: Response: No adverse reaction tw2 08:43 Drug: Clindamycin 900 mg Route: IVPB; Infused Over: 30 mins; Site: left wrist; tw2 09:10 Follow up: Response: No adverse reaction; IV Status: Completed infusion; IV Intake: [id number] Disposition Summary: 09/27/21 09:48 Discharge Ordered Location: Home fannie Problem: new fannie Symptoms: have improved fannie Condition: Stable fannie Diagnosis - Acute tonsillitis, unspecified fannie Followup: fannie - With: Private Physician - When: 2 - 3 days - Reason: Recheck today's complaints, Continuance of care, Re-evaluation by your physician Discharge Instructions: - Tonsillitis fannie - Tonsillitis, [id number] fannie - Discharge Summary Sheet tw2 Forms: - Medication Reconciliation Form fannie - Work release form tw2 - Thank You Letter fannie - Antibiotic Education fannie - Prescription Opioid Use fannie Prescriptions: - dexamethasone 2 mg Oral tablet - take 1 tablet by ORAL route 2 times per day; 6 tablet; Refills: 0, Product fannie Selection Permitted - Clindamycin HCl 300 mg Oral Capsule - take 1 capsule by ORAL route every 6 hours for 7 days; 28 capsule; Refills: 0, [facility] Product Selection Permitted Signatures: Dispatcher [employer] Guy Vera MD MD cha Williams, Irene, RN RN iw Berenice Stephenson RN RN tw2
== END 2021-09-27 10:42 | disposition home or self-care (01) ==
LOC: ER 07:44
DX: J03.90 Acute tonsillitis, unspecified (principal); Z20.822 Contact with and (suspected) exposure to COVID-19; I48.91 Unspecified atrial fibrillation; Z72.0 Tobacco use; Z88.0 Allergy status to penicillin
CPT/HCPCS: 96365; 96361; 93005; 87070; 85025; 36415; 87081; 80053; 70491; 96375; 99284; 87811; Q9967; J1100; J7030

== ENCOUNTER 2021-12-21 13:51 | Inpatient (IN) | payer OTHER ==
--- OUTSIDE RECORDS SUMMARY | 2021-12-21 13:59 | XMS REPORT | Continuity of Care Document ---
:1995 Author Organization [facility] t Address [address] [place] [address] Care Team Providers Name Role Phone Georgie Gann MD Primary Care Physician GEORGIE GANN Attending Clinician Unavailable Pob, Adc Lab Main Attending Clinician Unavailable Richie Raymond Attending Clinician RICHIE BOSE Attending Clinician Unavailable Iqra Valdivia Attending Clinician RAINA BATES Attending Clinician Unavailable Raina Bates PA-C Attending Clinician Abhay CHASSIS DRIVERLaura Attending Clinician FARZANA COLEMAN Attending Clinician Unavailable Farzana Vaz Attending Clinician Mima Haney Attending Clinician Doctor Unassigned, [place] Attending Clinician Unavailable ROX MUIR Attending Clinician Unavailable SHAI WILD Attending Clinician Unavailable Lab, Adc Fam Pob I Attending Clinician Unavailable Chad Dash MD Attending Clinician CHAD DASH Attending Clinician Unavailable Tesha Ivory Attending Clinician Rox Muir MD Attending Clinician Provider, [facility] Attending Clinician Unavailable Unknown, Attending Attending Clinician Unavailable UNKNOWN, ATTENDING Attending Clinician Unavailable MIMA NAPIER Attending Clinician Unavailable Payers Payer Name Policy Type Policy Number Effective Date Expiration Date Vaishali carlos [facility] [id number] 2021 CHOICE MEDICAID 00:00:00 [facility] [id number] 2020 GLOBAL 00:00:00 Problems Condition Condition Condition Status Onset Resolution Last Treating Co mments Source Name Details Category Date Date Treatment Clinician Date Other Other Disease Active Univers hemorrhoid hemorrhoid 10-13 it y of s s 00:00: 00 [facility] [place] Allergies, Adverse Reactions, Alerts Allergy Allergy Status Severity Reaction(s) Onset Inactive Treating Comm ents Source Name Type Date Date Clinician PENICILL DRUG Active High Anaphylaxis Uni vers IN INGREDI 3-13 ity of 00:00: 00 [facility] [place] Penicill Propensi Active Anaphylaxis U nivers in ty to 3-13 ity of adverse 00:00: [place] reaction 00 Medical s Branch Social History Social Habit Start Date Stop Date Quantity Comments Source History [facility] o f Alcohol Frequency [facility] History [facility] o f Alcohol Std Drinks [facility] History [facility] o f Alcohol Binge [facility] [place] History of tobacco Cigarette Smoker University of use [facility] Exposure to 2021-10-03 2021-10-13 Not sure University SARS-CoV-2 (event) 00:00:00 10:25:00 [facility] Alcohol Comment 2021-10-13 2021-10-13 Has a beer once Univ ersity of 00:00:00 00:00:00 a week [facility] Cigarettes smoked 2021-10-13 2021-10-13 Univers ity of current (pack per 00:00:00 00:00:00 [facility]) - Reported Branch Cigarette 2021-10-13 2021-10-13 University of pack-years 00:00:00 00:00:00 [facility] Tobacco use and 2021-10-13 2021-10-13 Smokeless Universit y of exposure 00:00:00 00:00:00 tobacco non-user [facility] dical [place] Alcohol intake 2021-10-13 2021-10-13 Ex-drinker University 00:00:00 00:00:00 (finding) [facility] Sex Assigned At [birth year] Universit y of 00:00:00 00:00:00 [facility] Smoking Status Start Date Stop Date Source Smokes tobacco daily 2021-10-13 00:00:00 [facility] Medications Ordered Filled Start Stop Current Ordering Indication Dosage Frequency Signature Comments Components Source Medication Medication Date Date Medication? Clinician (SIG) Name Name ibuprofen Yes [id number] 600mg Take 1 Univers 600 mg 8-18 [id number] tablet by ity of tablet 00:00: mouth [place] 00 every 6 Medical (six) Branch hours as needed for Pain (scale 4-6) (Pain). ibuprofen Yes [id number] 600mg Take 1 Univers 600 mg 8-18 [id number] tablet by ity of tablet 00:00: mouth [place] 00 every 6 Medical (six) Branch hours as needed for Pain (scale 4-6) (Pain). ibuprofen Yes [id number] 600mg Take 1 Univers 600 mg 8-18 [id number] tablet by ity of tablet 00:00: mouth [place] 00 every 6 Medical (six) Branch hours as needed for Pain (scale 4-6) (Pain). Immunizations Ordered Filled Immunization Date Status Comments Sourc e Immunization Name Name HPV9 2021-10-13 Completed University 00:00:00 [facility] HPV9 2021-10-13 Completed University 00:00:00 [facility] HPV9 2021-10-13 Completed [facility] [place] [facility] 00:00:00 [facility] Procedures Procedure Date / Time Performing Clinician Source Performed US SCROTUM AND CONTENTS 2021-10-21 14:53:57 [facility] THYROID STIMULATING 2021-10-21 13:56:00 [facility] HORMONE Medical Branch COMP. METABOLIC PANEL 2021-10-21 13:56:00 [facility] [id number] Medical Branch LIPID PANEL 2021-10-21 13:56:00 [facility] ([id number])(TOTAL Medical Branch CHOLESTEROL, TRIGLYCERIDES, HDL) HIV 1/2 AG-AB WITH 2021-10-21 13:56:00 [facility] Medical Branch Encounters Start End Encounter Admission Attending Care Care Encounter Source Date/Time Date/Time Type Type Clinicians Facility Department ID 2021-12-13 2021-12-13 Outpatient R SANJUANITA [facility] [id number] Univers 09:00:00 09:00:00 GEORGIE menon [facility] 2021-12-13 2021-12-13 Outpatient R SANJUANITA [facility] [id number] Univers 09:00:00 09:00:00 GEORGIE lynsey [facility] 2021-10-25 2021-10-25 [facility] [id number] Univers 00:00:00 00:00:00 [facility] [id number] ity [facility] [id number] [place] as LIZBET?BLEA [id number] Mt dical KNEY [address] [place] [address] MEDICAL OFFICE BUILDING 2021-10-21 2021-10-21 [facility] [id number] Univers 08:33:30 23:59:00 Encounter Georgie [place] [id number] ity [facility] [id number] [place] [phone] [facility] [address] [place] 2021-10-21 2021-10-21 Outpatient R SANJUANITA [facility] [id number] Univers 08:33:30 23:59:00 GEORGIE ity [facility] 2021-10-21 2021-10-21 Housekeeping Supervisor Joseph, [facility] Main RUST [id number] Univers 09:45:00 10:00:00 Visit Hugo [id number] [facility] [id number] [place] [facility] [id number] [facility] Branch BUILDING 2021-10-21 2021-10-21 Outpatient R SANJUANITA [facility] [id number] Univers 09:45:00 09:45:00 GEORGIE menon [facility] 2021-10-13 2021-10-13 Office [facility] [id number] Univers 10:40:00 11:58:11 Visit [facility] [id number] ity of [place] [id number] [place] as LIZBET?BLEA [id number] Mt harman POTTER 044 [facility] OFFICE [facility] 2021-10-13 2021-10-13 Outpatient R SANJUANITA [facility] [id number] Univers 10:40:00 11:58:11 [facility] 2021-10-13 2021-10-13 Outpatient R SANJUANITA [facility] [id number] Univers 10:40:00 11:58:11 [facility] 2021-10-13 2021-10-13 [facility] [id number] Univers 10:40:00 10:40:00 [facility] 2021-10-13 2021-10-13 Office [facility] [id number] Univers 09:15:00 09:50:13 Visit [facility] [id number] it y of [place] [id number] [place] as LIZBET?BLEA [phone] Mt harman POTTER 198 [facility] OFFICE [facility] 2021-10-13 2021-10-13 Outpatient R JUICE [facility] [id number] Univers 09:15:00 09:15:00 [facility] 2021-10-02 2021-10-02 [facility] [id number] Univers 13:17:24 23:59:00 Encounter [facility] HEALTH [id number] ity of [place] [id number] [place] as LIZBET?BLEA [id number] Mt harman [address]TER 808 [facility] OFFICE [facility] 2021-10-02 2021-10-02 [facility] [id number] Univers 13:17:24 23:59:00 Encounter [facility] HEALTH [id number] ity of [place] 4.2.7.2.686 [place]pson as LIZBET?BLEA [id number] Mt harman [address]OTTER 808 [facility] OFFICE [facility] 2021-10-02 2021-10-02 Outpatient R JUDITH [facility] [id number] Univers 12:20:00 13:27:49 RAINA ity of [facility] 2021-10-02 2021-10-02 Urgent Iqra Laguna [place] [id number] Univers 12:20:00 13:27:49 Care Raina Bates [facility] [id number] ity of [place] 4.2.7.2.686 [place] as LIZBET?BLEA [id number] [facility] [address] [place] MEDICAL OFFICE BUILDING 2021-08-02 2021-08-02 Telephone [facility] [id number] Univers 00:00:00 00:00:00 [facility] [id number] it [facility] [id number] [place] LIZBET?BLEA [id number] [address] MEDICAL OFFICE [facility] 2021-07-31 2021-07-31 Outpatient R VIRGINIA [facility] [id number] Univers 13:44:56 23:59:00 [facility] ity [facility] 2021-07-31 2021-07-31 [facility] 1.2.840.114 [id number] Univers 13:44:56 23:59:00 Encounter [facility] [id number] ity [facility] [id number] [place] as LIZBET?BLEA [id number] [facility] [address] [place] MEDICAL OFFICE [facility] 2021-07-31 2021-07-31 Urgent Farzana Coleman [place] 1.2.840. [id number] Univers 13:40:00 14:48:13 Care Mima Napier [facility] [id number] ity of [facility] [id number] [place] as LIZBET?BLEA [id number] [facility] [address] [place] MEDICAL OFFICE [facility] 2021-07-31 2021-07-31 Orders Doctor RAINA 1.2.840.114 [id number] Univers 00:00:00 00:00:00 Only Unassigned, GOMEZ [id number] ity of [place] [facility] [id number] [place] as [phone] [facility] [address] [place] 2021-04-29 2021-04-29 Outpatient R CLAIRE [facility] [id number] Univers 19:00:00 19:06:29 ROX itmiguel [facility] 2020-11-04 2020-11-04 Outpatient R JUNITO, [facility] [id number] Univers 13:30:00 13:30:00 SHAI ity [facility] 2020-10-22 2020-10-22 Letter Doctor RAINA 1.2.840.114 [id number] Univers 00:00:00 00:00:00 (Out) Unassigned, GOMZE [id number] ity of [place] [facility] 4.2.7.2.686 [place] as [id number] [facility] [address] [place] 2020-10-22 2020-10-22 Letter Doctor RAINA 1.2.840.114 [id number] Univers 00:00:00 00:00:00 (Out) Unassigned, GOMEZ [id number] ity of [place] [facility] 4.2.7.2.686 [place] as [id number] [address] 2020-09-19 2020-09-19 Laboratory Lab, Adc Fam Pob I [place] 1.2. 840.114 [id number] Univers 16:47:20 17:07:20 [facility] 350.1.13. 10 ity of [place] 4.2.7.2.686 Sampson as Professio [id number] Mt dical nal [address] [place] Office Building One 2020-09-19 2020-09-19 Outpatient R TRESSAFLCRISTIANA [facility] [id number] Univers 16:40:00 16:40:00 , CHAD ity [facility] 2020-09-10 2020-09-10 Telephone [facility] [id number] Univers 00:00:00 00:00:00 [facility] [id number] ity of [place] 4.2.7.2.686 [place]pson as Professio [id number] Mt dical nal [address] [place] Office Building One 2020-09-09 2020-09-09 Laboratory Lab, Adc Fam Pob I [place] 1.2. 840.114 [id number] Univers 20:00:48 20:20:48 Only Rox Muir [facility] [id number] ity of [place] 4.2.7.2.686 [place] as Professio [id number] [address] One 2020-09-09 2020-09-09 Outpatient R CLAIRE [facility] [id number] Univers 20:00:00 20:00:00 ROX ity [facility] 2020-07-26 2020-07-26 Urgent Provider, [facility] [place] 1.2.840.114 [id number] Univers 13:26:34 13:41:05 Care Unknown, [facility] [id number] ity of Mima Napier [place] 4.2.7.2.686 [place] Professio [phone] [address] Office [facility] One 2020-07-26 2020-07-26 Outpatient R GAYLA [facility] [id number] Univers 13:40:00 13:40:00 ATTENDING ity [facility] 2020-07-11 2020-07-11 Urgent Provider, [facility] [place] 1.2.840.114 [id number] Univers 14:29:52 15:27:13 Care [facility] [id number] ity of [place] 4.2.7.2.686 [place] as Professio [id number] [address] Office [facility] One 2020-07-11 2020-07-11 Outpatient R [facility] [id number] Univers 14:40:00 14:40:00 ity of [facility] 2020-07-11 2020-07-11 Orders Doctor [place] 1.2.840.114 [id number] Univers 00:00:00 00:00:00 Only Unassigned, GOMEZ 350.1.13.10 ity of [place] [facility] 4.2.7.2.686 [place] as [phone] [address] 2020-05-08 2020-05-08 [facility] 1.2.840.114 [id number] 13:23:37 13:43:37 Care Tesha Seth [facility] 350.1.13.10 [place] 4.2.7.2.686 Professio [id number] nal [address] Office [address] One 2020-05-08 2020-05-08 Urgent Tesha Macias [place] 1.2.840 .114 [id number] Univers 13:23:37 13:43:37 Care Mima Napier [facility] 350.1.13.10 ity [facility] 4.2.7.2.686 [place] as Professio [phone] Me dical nal [address] Branch Office Building One 2020-05-08 2020-05-08 Outpatient R QUYEN [facility] [id number] Univers 13:00:00 13:00:00 [facility] Results Test Description Test Time Test Comments Results Result Comments Source HIV 1/2 AG-AB WITH REFLEX 2021-10-21 15:46:08 Test Item Value Reference Range Interpretation Comme nts HIV Semi-quantitative (test code = Negative Negative 65423-5) GIANCARLO (test code = GIANCARLO) Non-reactive for HIV-1 antigen and HIV-1/HIV-2 antibodies. ?No laboratory evidence of HIV infection. ?Repeat in 2-4 weeks if acute HIV infection is suspected. [facility] [id number] 15:36:47 Test Item Value Reference Range Interpretation Comments TSH (test code = See_Comment [Automated message] [id number]) The system Clowdy generated this result transmitted ref erence range: 0.45 - 4 .70 mIU/L. The refe rence range was not u sed to interpret this result as normal/abnor mal. Lab Interpretation (test Normal code = 09966-1) [facility]OLIC PANEL ([id number])2021-10-21 15:06:22 Test Item Value Reference Range Interpretation Comments NA (test code = 139 mmol/L 135-145 0569289374) K (test code = 4.5 mmol/L 3.5-5 1457970331) CL (test code = 105 mmol/L 98-108 6690143877) CO2 TOTAL (test code 28 mmol/L 23-31 = 4377077545) AGAP (test code = 2-16 5891742916) BUN (test code = 16 mg/dL 7-23 6102069085) GLUCOSE (test code = 98 mg/dL 70-110 3369246246) CREATININE (test code 0.73 mg/dL 0.6-1.25 = 1607568365) TOTAL BILI (test code 0.5 mg/dL 0.1-1.1 = 6326440061) CALCIUM (test code = 9.5 mg/dL 8.6-10.6 3182927596) T PROTEIN (test code 6.5 g/dL 6.3-8.2 = 9289004782) ALBUMIN (test code = 4.5 g/dL 3.5-5 6624226054) ALK PHOS (test code = 74 U/L 34-122 7095334736) ALTv (test code = 16 U/L 5-50 1742-6) AST(SGOT) (test code 22 U/L 13-40 = 2524000083) eGFR (test code = mL/min/1.73m2 3824343195) GIANCARLO (test code = GIANCARLO) Association of Glomerular Filtration Rate (GFR) and Staging of Kidney Disease* + + +- +| GFR (mL/min/1.73 m2) ?| With Kidney Damage ?| ?Without Kidney Damage+ ------+ ----+ ------+| ?>90 ?| ?Stage one ?| ? Normal ?+ -+ + -+| ?60-89 ?| ?Stage two ?| ? Decreased GFR ? + + +- +| ?30-59 ?| ?Stage three ?| ? Stage three ? + + +- +| ?15-29 ?| ?Stage four ? | ? Stage four ?+ -+ + -+| ?<15 (or dialysis) ? ?| ?Stage five ? | ? Stage five ?+ -+ + -+ *Each stage assumes the associated GFR level has been in effect for at least three months. ?Stages 1 to 5, with or without kidney disease, indicate chronic kidney disease. Notes: Determination of stages one and two (with eGFR >59mL/min/1.73 m2) requires estimation of kidney damage for at least three months as defined by structural or functional abnormalities of the kidney, manifested by either:Pathological abnormalities or Markers of kidney damage (including abnormalities in the composition of the blood or urine or abnormalities in imaging tests). [facility] Center[facility] ([id number])(TOTAL CHOLESTEROL, TRIGLYCERIDES, HDL)2021-10-21 15:06:22 Test Item Value Reference Range Interpretation Comments CHOL (test code = 173 mg/dL 120-200 6431767741) HDL (test code = 50 mg/dL See_Comment [Automated message] [id number]) The system Clowdy generated this result transmit gwen reference range : >=40. The refer ence range was not u sed to interpret th is result as normal/abnormal . HDLC RATIO (test code = See_Comment [Au tomated message] [id number]) The system Clowdy generated this result transmit gwen reference range : <=5.0. The refe rence range was not u sed to interpret th is result as normal/abnormal . TRIG (test code = 131 mg/dL 30-170 4555057210) LDL CHOL (test code = 97 mg/dL See_Comment [Auto mated message] 79553-0) The system Clowdy generated this result transmit gwen reference range : <=160. The refe rence range was not u sed to interpret th is result as normal/abnormal . VLDL (test code = 26 mg/dL 5-60 5376690996) Lab Interpretation (test Normal code = 09631-5) [facility]"
[2021-12-21] MEDS ORDERED: METOPROLOL TARTRATE 5 MG/5 ML INJ IV ONE (14:24)
[2021-12-21] MEDS ORDERED: NA CHLORIDE 0.9% 1,000 ML ONE ×2 (14:25→18:43)
[2021-12-21] MEDS ORDERED: ASPIRIN EC 325 MG TABLET PO ONE (14:25)
[2021-12-21] MEDS ORDERED: ASPIRIN 325 MG TAB ONE (14:35)
[2021-12-21 14:38] LABS: Absolute Lymphocytes (CBC) 1.9 K/uL (0.7-4.9); Hematocrit 49.8 % (39.6-49.0); Lymphocytes % 18.2 % (15.3-44.8); MCV 93.9 fL (80-100); MPV 7.3 fL (7.6-11.3); RBC Red Blood Cell Count 5.31 M/uL (4.33-5.43)
[2021-12-21 14:43] LABS: Protime INR 1.11
--- NOTE | 2021-12-21 15:33 | RAD REPORT ---
EXAM DESCRIPTION: RAD - Chest Single View - 12/21/2021 3:17 pm CLINICAL HISTORY: PALPITATIONS COMPARISON: None TECHNIQUE: AP portable chest image was obtained 12/21/2021 3:17 pm . FINDINGS: No acute lung parenchymal process. Soft tissues over the lateral lower left chest are prom inent. There is absent or deformity of multiple post oral lateral lower left ribs. The July CT study showed postsurgical change the lower left chest. No history was detailed. These chest wall changes ar e probably not relevant to the current clinical presentation. Heart and vasculature are normal. No measurable pleural effusion and no pneumothorax. No acute bony abnormality seen. No acute aortic findings suspected. IMPRESSION: No acute cardiopulmonary process. Lower left chest wall deformity is present believed to be part of a remote surgical procedure not det pinky in the history. These changes are probably not of acute clinical significance.
[2021-12-21 16:17] LABS: Albumin 3.5 g/dL (3.4-5.0); Bilirubin Direct 0.2 mg/dL (0-0.2); Bilirubin Total 0.6 mg/dL (0.2-1.0); Magnesium 2.1 mg/dL (1.8-2.4); Potassium 3.8 mmol/L (3.5-5.1); Protein, Total 6.7 g/dL (6.4-8.2); Thyroid Stimulating Hormone 1.15 uIU/mL (0.360-3.740); Troponin High Sensitivity 18.8 pg/mL (<58.9)
--- NOTE | 2021-12-21 16:29 | ER ---
Nurse's Notes [facility] Name: Huseyin Winkler Age: 26 yrs Sex: Male : 1995 Arrival Date: 12/21/2021 Time: 13:56 Bed 18 Private MD: Diagnosis: Unspecified atrial fibrillation;Chest pain, unspecified Presentation: 12/21 14:10 Chief complaint: Patient states: Palpitations and mild chest tightness since 1200 today.[facility] 14:10 Coronavirus screen: Vaccine status: Patient reports being unvaccinated. At this time, jl7 the client does not indicate any symptoms associated with coronavirus-19. Ebola Screen: No symptoms or risks identified at this time. Initial Sepsis Screen: Does the patient meet any 2 criteria? No. Patient's initial sepsis screen is negative. Does the patient have a suspected source of infection? No. Patient's initial sepsis screen is negative. Risk Assessment: Do you want to hurt yourself or someone else? Patient reports no desire to harm self or others. Onset of symptoms was December 21, 2021 at 12:00. 14:10 Method Of Arrival: Ambulatory [facility] 14:10 Acuity: MIAN 2 jl7 Triage Assessment: 14:10 General: Appears in no apparent distress. uncomfortable, Behavior is calm, cooperative, jl7 appropriate for age. Pain: Complains of pain in chest Pain currently is 0 out of 10 on a pain scale. Cardiovascular: Reports palpitations. 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 - Social history:: Smoking status: Patient reports the use of cigarette tobacco products, smokes one-half pack cigarettes per day. Screenin:54 Abuse screen: Denies threats or abuse. Denies injuries from another. Nutritional db screening: No deficits noted. Tuberculosis screening: No symptoms or risk factors identified. Fall Risk None identified. No fall in past 12 months (0 pts). No secondary diagnosis (0 pts). IV access (20 points). Ambulatory Aid- None/Bed Rest/Nurse Assist (0 pts). Gait- Normal/Bed Rest/Wheelchair (0 pts) Mental Status- Oriented to own ability (0 pts). Total Marquez Fall Scale indicates No Risk (0-24 pts). Assessment: 14:46 Reassessment: Patient appears in no apparent distress at this time. Patient is alert, db oriented x 3, equal unlabored respirations, skin warm/dry/pink. patient came in today because about 12 pm started with chest "cramping". hx of afib. General: Appears in no apparent distress. comfortable, Behavior is calm, cooperative, appropriate for age, quiet. Pain: Complains of pain in left chest Pain does not radiate. Pain began 2 hours ago. Neuro: No deficits noted. Level of Consciousness is awake, alert, obeys commands, Oriented to person, place, time, situation, Appropriate for age Speech is normal, Facial symmetry appears normal, Pupils are PERRLA. Cardiovascular: Reports chest pain, palpitations, since 12 pm Rhythm is atrial fibrillation. Respiratory: No deficits noted. Respiratory: Airway is patent Respiratory effort is even, unlabored, Respiratory pattern is regular, symmetrical. GI: No deficits noted. No signs and/or symptoms were reported involving the gastrointestinal system. : No deficits noted. No signs and/or symptoms were reported regarding the genitourinary system. EENT: No deficits noted. No signs and/or symptoms were reported regarding the EENT system. Derm: No deficits noted. No signs and/or symptoms reported regarding the dermatologic system. Musculoskeletal: No deficits noted. No signs and/or symptoms reported regarding the musculoskeletal system. 15:30 Reassessment: Patient appears in no apparent distress at this time. Patient and/or db family updated on plan of care and expected duration. Pain level reassessed. Patient is alert, oriented x 3, equal unlabored respirations, skin warm/dry/pink. Patient states symptoms have improved. 16:45 Reassessment: Patient appears in no apparent distress at this time. Patient and/or db family updated on plan of care and expected duration. Pain level reassessed. Patient is alert, oriented x 3, equal unlabored respirations, skin warm/dry/pink. Inpatient physician at bedside. 17:30 Reassessment: Patient appears in no apparent distress at this time. Patient and/or db family updated on plan of care and expected duration. Pain level reassessed. Patient is alert, oriented x 3, equal unlabored respirations, skin warm/dry/pink. Patient is alert/active/playful, equal unlabored respirations, skin warm/dry/pink. Patient states feeling better. Patient states symptoms have improved. 18:56 Reassessment: Patient appears in no apparent distress at this time. Patient and/or db family updated on plan of care and expected duration. Pain level reassessed. Patient is alert, oriented x 3, equal unlabored respirations, skin warm/dry/pink. Patient states feeling better. Patient states symptoms have improved. Vital Signs: 14:10 BP 131 / 77; Pulse 108; Resp 17; Temp 98.4; Pulse Ox 98% on R/A; Weight 81.65 kg; jl7 Height 5 ft. 11 in. (180.34 cm); Pain 0/10; 14:25 BP 125 / 74; Pulse 124; Resp 16; Pulse Ox 100% ; db 14:30 BP 108 / 65; Pulse 180; Resp 20; Pulse Ox 98% ; Pain 2/10; db 14:35 BP 110 / 92; Pulse 96; Resp 16; Pulse Ox 100% ; db 14:45 BP 109 / 55; Pulse 86; Resp 18; Pulse Ox 99% ; Pain 1/10; db 15:00 BP 120 / 79; Pulse 89; Resp 16; Pulse Ox 99% ; db 15:30 BP 118 / 53; Pulse 91; Resp 18; Pulse Ox 100% on R/A; db 15:45 BP 116 / 63; Pulse 99; Resp 18; Pulse Ox 99% ; db 16:15 Pulse 89; Resp 18; Pulse Ox 100% ; db 16:45 BP 107 / 43; Pulse 83; Resp 18; Pulse Ox 100% on R/A; db 17:00 BP 112 / 51; Pulse 86; Resp 20; Pulse Ox 99% ; db 18:00 BP 112 / 47; Pulse 79; Resp 20; Pulse Ox 99% ; db 18:30 BP 99 / 55; Pulse 88; Resp 20; Pulse Ox 100% ; db 18:45 BP 100 / 57; Pulse 87; Resp 20; Pulse Ox 100% ; db 14:10 Body Mass Index 25.10 (81.65 kg, 180.34 cm) jl7 Vitals: 14:50 Cardiac Rhythm Assessment Irregular Atrial fibrillation. db ED Course: 13:56 Patient arrived in ED. rg4 13:57 Lonnie Perez, NORMA is PHCP. pm1 13:57 Justo Estevez DO is Attending Physician. pm1 14:04 Yamilka Day, RN is Primary Nurse. db 14:10 Arm band placed on right wrist. jl7 14:15 Patient has correct armband on for positive identification. Bed in low position. Call db light in reach. Side rails up X 1. Client placed on continuous cardiac and pulse oximetry monitoring. NIBP monitoring applied. 14:15 Warm blanket given. db 14:20 Inserted saline lock: 20 gauge in left antecubital area, using aseptic technique. Blood db collected. 14:21 Triage completed. jl7 14:45 Patient maintains SpO2 saturation greater than 95% on room air. db 15:19 XRAY Chest (1 view) In Process Unspecified. EDMS 16:28 Balaji Gregory MD is Hospitalizing Provider. pm1 19:17 Report given to EDGARD Mendez. db 20:18 No provider procedures requiring assistance completed. Patient admitted, IV remains in lg3 place. intact, No redness/swelling at site. 20:27 UDS Sent. lg3 12/22 05:31 CBC with Automated Diff Sent. lg3 05:31 Basic Metabolic Panel Sent. lg3 Administered Medications: 12/21 14:25 Drug: NS 0.9% 1000 ml Route: IV; Rate: 1000 ml; Site: left antecubital; db 15:30 Follow up: Response: No adverse reaction; IV Status: Completed infusion; IV Intake: db 1000ml 14:25 Drug: Lopressor (metoprolol) 5 mg Route: IVP; Site: left antecubital; db 14:55 Follow up: Response: No adverse reaction db 14:30 Drug: Aspirin 325 mg Route: PO; db 19:44 Follow up: Response: No adverse reaction lg3 18:43 Drug: NS 0.9% 1000 ml Route: IV; Rate: 1000 ml; Site: left antecubital; db 20:18 Follow up: Response: No adverse reaction; IV Status: Completed infusion; IV Intake: lg3 1000ml 20:51 Drug: Zofran (Ondansetron) 4 mg Route: IVP; Site: left antecubital; lg3 20:51 Follow up: Response: No adverse reaction; Marked relief of symptoms lg3 Medication: 19:01 VIS not applicable for this client. db Intake: 15:30 IV: 1000ml; Total: 1000ml. db 20:18 IV: 1000ml; Total: 2000ml. lg3 Outcome: 16:28 Decision to Hospitalize by Provider. pm1 20:19 Admitted to ER Hold. Please see [facility] for further documentation. lg3 20:19 Condition: stable 20:19 Instructed on the need for admit. 12/22 14:51 Patient left the ED. mb8 Signatures: Dispatcher [employer] EDMS Lonnie Perez, NORMA PAINT PREPARER pm1 Ruth Middleton rg4 Luis Felipe Sullivan RN RN jl7 Vanessa Mays RN RN lg3 Dileep Dowd RN RN mb8 Yamilka Day RN RN db Corrections: (The following items were deleted from the chart) 12/21 19:01 18:00 BP 99 / 55; Pulse 88bpm; Resp 20bpm; Pulse Ox 100%; db db 19:18 16:15 BP 114 / 58; Pulse 89bpm; Resp 18bpm; Pulse Ox 100%; db db
--- NOTE | 2021-12-21 16:29 | EDPHYS ---
Physician Documentation [facility] Name: Huseyin Winkler Age: 26 yrs Sex: Male : 1995 Arrival Date: 12/21/2021 Time: 13:56 Bed 18 Private MD: ED Physician Justo Estevez HPI: 12/21 14:09 This 26 yrs old Male presents to ER via Ambulatory with complaints of pm1 Palpitations, Chest Pain. 14:09 The patient presents with a history of irregular heart beat, heart racing. Context: The pm1 symptoms occur at rest. Onset: The symptoms/episode began/occurred today, at 12:00. Duration: The patient or guardian reports a single episode, that is still ongoing. Modifying factors: The symptoms are aggravated by nothing. The symptoms are alleviated by nothing. Associated signs and symptoms: Pertinent positives: chest pain, Pertinent negatives: nausea, SOB, vomiting. Severity of symptoms: in the emergency department the symptoms are unchanged. The patient has experienced a previous episode, 2 years ago had atrial fibrillation requiring hospitalization for 3 days. Was discharged home with medications that he took for 3 months. Stopped taking the medication after the medications ran out but reports no issues since that time. The patient has not recently seen a physician. 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 - Social history:: Smoking status: Patient reports the use of cigarette tobacco products, smokes one-half pack cigarettes per day. ROS: 14:09 Respiratory: Negative for shortness of breath, cough, wheezing, and pleuritic chest pm1 pain, Abdomen/GI: Negative for abdominal pain, nausea, vomiting, diarrhea, and constipation, Back: Negative for injury and pain, MS/Extremity: Negative for injury and deformity, Skin: Negative for injury, rash, and discoloration, Neuro: Negative for headache, weakness, numbness, tingling, and seizure. 14:09 Constitutional: Positive for recent decreased fluid intake, Negative for body aches, fever. 14:09 Cardiovascular: Positive for chest pain, palpitations, Negative for edema, orthopnea. 14:09 All other systems are negative. Exam: 14:09 Constitutional: This is a well developed, well nourished patient who is awake, alert, pm1 and in no acute distress. Head/Face: Normocephalic, atraumatic. 14:09 Back: No spinal tenderness. No costovertebral tenderness. Full range of motion. Skin: Warm, dry with normal turgor. Normal color with no rashes, no lesions, and no evidence of cellulitis. MS/ Extremity: Pulses equal, no cyanosis. Neurovascular intact. Full, normal range of motion. 14:09 Eyes: Exam is negative for acute changes, Periorbital structures: no acute changes, Extraocular movements: no acute changes, Conjunctiva: no acute changes, no injection. 14:09 Cardiovascular: Rate: tachycardic, Rhythm: irregular, Pulses: no pulse deficits are appreciated, Heart sounds: normal, normal S1and S2, Edema: is not appreciated. 14:09 Respiratory: Exam negative for acute changes, respiratory distress, shortness of breath, Breath sounds: are clear throughout. 14:09 Abdomen/GI: Exam negative for acute changes, Inspection: abdomen appears normal, Palpation: abdomen is soft and non-tender, in all quadrants. 14:09 Neuro: Exam negative for acute changes, Orientation: is normal, Mentation: is normal, Motor: is normal, moves all fours. Vital Signs: 14:10 BP 131 / 77; Pulse 108; Resp 17; Temp 98.4; Pulse Ox 98% on R/A; Weight 81.65 kg; jl7 Height 5 ft. 11 in. (180.34 cm); Pain 0/10; 14:25 BP 125 / 74; Pulse 124; Resp 16; Pulse Ox 100% ; db 14:30 BP 108 / 65; Pulse 180; Resp 20; Pulse Ox 98% ; Pain 2/10; db 14:35 BP 110 / 92; Pulse 96; Resp 16; Pulse Ox 100% ; db 14:45 BP 109 / 55; Pulse 86; Resp 18; Pulse Ox 99% ; Pain 1/10; db 15:00 BP 120 / 79; Pulse 89; Resp 16; Pulse Ox 99% ; db 15:30 BP 118 / 53; Pulse 91; Resp 18; Pulse Ox 100% on R/A; db 15:45 BP 116 / 63; Pulse 99; Resp 18; Pulse Ox 99% ; db 16:15 Pulse 89; Resp 18; Pulse Ox 100% ; db 16:45 BP 107 / 43; Pulse 83; Resp 18; Pulse Ox 100% on R/A; db 17:00 BP 112 / 51; Pulse 86; Resp 20; Pulse Ox 99% ; db 18:00 BP 112 / 47; Pulse 79; Resp 20; Pulse Ox 99% ; db 18:30 BP 99 / 55; Pulse 88; Resp 20; Pulse Ox 100% ; db 18:45 BP 100 / 57; Pulse 87; Resp 20; Pulse Ox 100% ; db 14:10 Body Mass Index 25.10 (81.65 kg, 180.34 cm) jl7 MDM: 14:07 Patient medically screened. pm1 14:41 ED course: Chads score = 0. pm1 14:54 Data reviewed: vital signs. Data interpreted: Pulse oximetry: on room air is 99 %. pm1 Interpretation: normal. 15:50 ED course: Patient's chest pain resolved with improvement of heart rate. Patient with pm1 continued atrial fibrillation after Lopressor 5 mg IV. 16:27 Counseling: I had a detailed discussion with the patient and/or guardian regarding: the pm1 historical points, exam findings, and any diagnostic results supporting the discharge/admit diagnosis, lab results, radiology results, the need for further work-up and treatment in the hospital. 12/21 14:08 Order name: TSH; Complete Time: 16:19 pm1 12/21 14:08 Order name: Basic Metabolic Panel; Complete Time: 16:19 pm1 12/21 14:08 Order name: CBC with Diff; Complete Time: 14:44 pm1 12/21 14:08 Order name: LFT's; Complete Time: 16:19 pm1 12/21 14:08 Order name: Magnesium; Complete Time: 16:19 pm1 12/21 14:08 Order name: NT PRO-BNP; Complete Time: 16:19 pm1 12/21 14:08 Order name: PT-INR; Complete Time: 14:44 pm1 12/21 14:08 Order name: Troponin HS; Complete Time: 16:19 pm1 12/21 14:08 Order name: SARS RAPID; Complete Time: 17:02 pm1 12/21 17:51 Order name: Creatine Phosphokinase; Complete Time: 20:59 EDMS 12/21 17:51 Order name: Magnesium; Complete Time: 20:59 EDMS 12/21 17:51 Order name: NT PRO-BNP; Complete Time: 20:59 EDMS 12/21 17:51 Order name: Phosphorus; Complete Time: 20:59 EDMS 12/21 17:51 Order name: T4 Free; Complete Time: 20:59 EDMS 12/21 14:08 Order name: XRAY Chest (1 view); Complete Time: 15:45 pm1 12/21 17:46 Order name: Echo with Doppler EDMS 12/21 17:51 Order name: Thyroid Stimulating Hormone; Complete Time: 20:59 EDMS 12/21 17:51 Order name: Urinalysis; Complete Time: 21:54 EDMS 12/21 17:51 Order name: Basic Metabolic Panel EDMS 12/21 17:51 Order name: Basic Metabolic Panel EDMS 12/21 17:51 Order name: CBC with Automated Diff EDMS 12/21 17:51 Order name: CBC with Automated Diff EDMS 12/21 17:56 Order name: D-Dimer; Complete Time: 20:14 EDMS 12/21 20:07 Order name: UDS lg3 12/21 20:28 Order name: Urine Dipstick-Ancillary; Complete Time: 20:59 EDMS 12/21 20:28 Order name: Lipid Profile; Complete Time: 20:59 EDMS 12/21 20:48 Order name: Urine Drug Screen; Complete Time: 20:59 EDMS 12/21 21:23 Order name: Hemoglobin A1c; Complete Time: 21:37 EDMS 12/21 21:51 Order name: Troponin High Sensitivity; Complete Time: 21:54 EDMS 12/22 02:52 Order name: Troponin High Sensitivity EDMS 12/21 14:08 Order name: EKG; Complete Time: 14:09 pm1 12/21 14:08 Order name: Cardiac monitoring; Complete Time: 14:45 pm1 12/21 14:08 Order name: EKG - Nurse/Tech; Complete Time: 14:22 pm1 12/21 14:08 Order name: IV Saline Lock; Complete Time: 14:45 pm1 12/21 14:08 Order name: Labs collected and sent; Complete Time: 14:45 pm1 12/21 14:08 Order name: O2 Per Protocol; Complete Time: 14:45 pm1 12/21 14:08 Order name: O2 Sat Monitoring; Complete Time: 14:45 pm1 12/21 17:53 Order name: Heart Healthy EDMS 12/21 20:07 Order name: Urine Dipstick-Ancillary (obtain specimen); Complete Time: : lg3 12/21 20:15 Order name: Chest For PE Angio CT la1 12/21 22:10 Order name: CT; Complete Time: : EDMS 12/22 13:15 Order name: MRI EDMS EC:13 Rate is 112 beats/min. Rhythm is irregular, A fib with No ectopy. QRS [place] is Normal. pm1 OR interval is normal. QRS interval is normal. QT interval is normal. No Q waves. T waves are Normal. No ST changes noted. Clinical impression: Atrial Fibrillation. 15:50 Rate is 91 beats/min. Rhythm is irregular, A fib with No ectopy. QRS [place] is Normal. OR pm1 interval is normal. QRS interval is normal. QT interval is normal. No Q waves. T waves are Normal. No ST changes noted. Clinical impression: Atrial Fibrillation. Administered Medications: 14:25 Drug: NS 0.9% 1000 ml Route: IV; Rate: 1000 ml; Site: left antecubital; db 15:30 Follow up: Response: No adverse reaction; IV Status: Completed infusion; IV Intake: db 1000ml 14:25 Drug: Lopressor (metoprolol) 5 mg Route: IVP; Site: left antecubital; db 14:55 Follow up: Response: No adverse reaction db 14:30 Drug: Aspirin 325 mg Route: PO; db 19:44 Follow up: Response: No adverse reaction lg3 18:43 Drug: NS 0.9% 1000 ml Route: IV; Rate: 1000 ml; Site: left antecubital; db 20:18 Follow up: Response: No adverse reaction; IV Status: Completed infusion; IV Intake: lg3 1000ml 20:51 Drug: Zofran (Ondansetron) 4 mg Route: IVP; Site: left antecubital; lg3 20:51 Follow up: Response: No adverse reaction; Marked relief of symptoms lg3 Disposition: 19:39 Co-signature as Attending Physician, Justo SAVAGE was immediately available on-site ms3 in the Emergency Department for consultation in the care of the patient.. Disposition Summary: 12/21/21 16:28 Hospitalization Ordered Hospitalization Status: Inpatient Admission pm1 Provider: Balaji Gregory pm1 Condition: Stable pm1 Problem: new pm1 Symptoms: have improved pm1 Bed/Room Type: Standard pm1 Location: [facility] HOLD(12/21/21 18:44) eb1 Room Assignment: ERHOLD-(12/21/21 18:44) eb1 Diagnosis - Unspecified atrial fibrillation pm1 - Chest pain, unspecified pm1 Discharge Instructions: - Discharge Summary Sheet mb8 - and Returning to Work mb8 Forms: - Medication Reconciliation Form pm1 - SBAR form pm1 - Work release form mb8 Signatures: Dispatcher [employer] EDMS Stan Molina, JORI-C BEHAVIORAL MODIFICATION ASSISTANT-Cla1 Lonnie Perez, LANDCARE OFFICER LANDCARE OFFICER pm1 Luis Felipe Sullivan RN RN jl7 Sussy Rodríguez RN RN eb1 Vanessa Mays RN RN lg3 Justo Estevez, DO ms3 Yamilka Day RN RN db Corrections: (The following items were deleted from the chart) 18:44 16:28 Telemetry/MedSurg (Inpatient) pm1 eb1 18:44 16:28 pm1 eb1
[2021-12-21 16:52] LABS: SARS-CoV-2 Antigen Rapid Res Negative (Negative)
[2021-12-21] MEDS ORDERED: HYDROCODONE/APAP 5/325 MG TAB PO PRN (17:41)
[2021-12-21] MEDS ORDERED: ACETAMINOPHEN 325 MG TABLET PO PRN (17:44)
[2021-12-21] MEDS ORDERED: ONDANSETRON 4 MG/2 ML VIAL IV PRN (17:47)
[2021-12-21] MEDS ORDERED: NITROGLYCERIN 0.4 MG/TAB SL PRN (17:51)
[2021-12-21] MEDS ORDERED: HEPARIN/D5W 25,000 UNIT/500 ML BAG IV SCH (18:00)
[2021-12-21] MEDS ORDERED: HEPARIN/D5W 25,000 UNIT/500 ML BAG IV PRN (18:00)
[2021-12-21] MEDS: NICOTINE 21 MG/PAT TD SCH (18:00)
--- NOTE | 2021-12-21 18:17 | P.HP ---
Certification for Inpatient Patient admitted to: Inpatient With expected LOS: >2 Midnights Patient will require the following post-hospital care: None Practitioner: I am a practitioner with admitting privileges, knowledge of patient current condition, hospital course, and medical plan of care. Services: Services provided to patient in accordance with Admission requirements found in Title 42 Section 412.3 of the Code of Federal Regulations Patient History Date of Service: 12/21/21 Reason for admission: Chest pain and palpitations History of Present Illness: Patient is a 26-year-old male with a past medical history significant for A. fib, nicotine dependence who presents with complaint of palpitations and chest pain Onset this morning. Patient indicated that chest pain is located in the left chest wall, rated pain as 8/10 in severity and described pain as squeezing in quality. Patient indicated that chest pain radiates to his back. Patient reported associated signs and symptoms of shortness of breath. Patient denies any other signs or symptoms. Symptoms are aggravated or relieved by nothing. Patient decided to present to the hospital due to worsening symptoms. Of note, patient reported that he was diagnosed with A. fib 2 years ago and stopped taking his medications after discharge medications ran out. Allergies Penicillins Allergy (Verified 09/27/21 08:11) Hives/Rash - Past Medical/Surgical History -: Afib -: Nicotine dependence Past Surgical History: Reviewed- Non-Contributory - Family History Family History: Reviewed- Non-Contributory - Social History Smoking Status: Current every day smoker Counseled patient to stop smoking for: less than 10 minutes Smoking therapy provided: Yes Patient receptive to therapy: Yes Alcohol use: No CD- Drugs: No Caffeine use: Yes Place of Residence: Home Review of Systems General: Unremarkable Eyes: Unremarkable ENT: Unremarkable Respiratory: Shortness of Breath Cardiovascular: Chest Pain, Palpitations Gastrointestinal: Unremarkable Genitourinary: Unremarkable Musculoskeletal: Back Pain Integumentary: Unremarkable Neurological: Unremarkable Physical Examination - Physical Exam General: Alert, In no apparent distress, Oriented x3, Cooperative HEENT: Atraumatic, PERRLA, Mucous membr. moist/pink, EOMI, Sclerae nonicteric Neck: Supple, 2+ carotid pulse no bruit, No LAD, Without JVD or thyroid abnormality Respiratory: Clear to auscultation bilaterally, Diminished Cardiovascular: No edema, Irregular heart rate/rhythm Capillary refill: <2 Seconds Gastrointestinal: Normal bowel sounds, Soft and benign, Non-distended, No tenderness Musculoskeletal: No clubbing, No swelling, No contractures, No tenderness Integumentary: No rashes, No breakdown, No significant lesion, No tenderness/swelling Neurological: Normal gait, Normal speech, Normal strength at 5/5 x4 extr, Normal tone, Normal affect Lymphatics: No axilla or inguinal lymphadenopathy - Studies Laboratory Data (last 24 hrs) 12/21/21 15:42: Sodium 138, Potassium 3.8, BUN 12, Creatinine 0.90, Glucose 100, Magnesium 2.1, Total Bilirubin 0.6, AST 19, ALT 22, Alkaline Phosphatase 69 12/21/21 14:20: PT 12.2, INR 1.11 12/21/21 14:20: WBC 10.40, Hgb 17.3, Hct 49.8 H, Plt Count 343 Assessment and Plan - Plan --A. fib with RVR. Patient medicated with beta-tanner in the ER. Rate now controlled. Continue metoprolol. Cardiology consulted. Echocardiogram pending. Telemetry to monitor for any malignant arrhythmia. We will await further recommendation from factory assembler. --Chest pain. Likely secondary to demand ischemia. We will trend serial troponins--negative so far. Mix Maker on board. Telemetry. Continue aspirin. -- Nicotine dependence. Patient counseled on tobacco cessation and placed on nicotine patch. --Mild rhabdomyolysis. Continue p.o. hydration. Will reassess CPK in a.m. -- Dyslipidemia. Further management per patient's PCP outpatient. --Elevated D-dimer. CTA PE protocol to rule out PE. Continue supportive care. --Acute pain. Will manage pain with current pain medication regimen --DVT prophylaxis with Lovenox subQ. Discharge Plan: Home Plan to discharge in: Greater than 2 days - Advance Directives Does patient have a Living Will: No Does patient have a Durable POA for Healthcare: No - Code Status/Comfort Care Code Status Assessed: Yes Physician Review: Patient Assessed, Agree with Above Assessment and Plan Critical Care: No
[2021-12-21] MEDS: ASPIRIN 325 MG TAB PO SCH (18:30)
[2021-12-21 20:02] VITALS: BMI 25.1
[2021-12-21 20:27] LABS: Urine Blood Negative (Negative); Urine Glucose Negative (Negative); Urine Protein Negative (Negative); Urine Specific Gravity >=1.030 (1.005-1.030); Urine pH 5.5 (5.0-7.0)
[2021-12-21 20:28] LABS: Phosphorus 3.8 mg/dL (2.5-4.9); Thyroid Stimulating Hormone 0.833 uIU/mL (0.360-3.740)
[2021-12-21] MEDS ORDERED: NICOTINE 21 MG/PAT TD ONE (20:29)
[2021-12-21 20:31] LABS: Magnesium 2.1 mg/dL (1.8-2.4)
[2021-12-21 20:47] LABS: Barbiturates NEGATIVE (NEGATIVE); Benzodiazepines NEGATIVE (NEGATIVE); Cocaine NEGATIVE (NEGATIVE); METHAMPHETAM NEGATIVE (NEGATIVE); Methadone NEGATIVE (NEGATIVE); Opiates NEGATIVE (NEGATIVE); Phencyclidine NEGATIVE (NEGATIVE); THC Cannibis NEGATIVE (NEGATIVE)
[2021-12-21] MEDS ORDERED: ONDANSETRON 4 MG/2 ML VIAL ONE (20:48)
[2021-12-21 21:38] LABS: Specific Gravity 1.027 (1.005-1.030); Urine Bilirubin NEGATIVE (Negative); Urine Blood Negative (Negative); Urine Clarity Clear (Clear); Urine Color Light-Yellow (Yellow); Urine Glucose NEGATIVE (Negative); Urine Protein NEGATIVE (Negative); Urine Urobilinogen Normal (Normal)
[2021-12-21] MEDS: METOPROLOL TAR 25 MG TAB PO SCH (22:00)
--- NOTE | 2021-12-21 22:09 | RAD REPORT ---
EXAM DESCRIPTION: CT - Chest For Pe Angio - 12/21/2021 9:00 pm CLINICAL HISTORY: Pulmonary embolism (PE) suspected, positive D-dimer COMPARISON: Soft Tissue Neck W/Contr dated 09/27/2021 TECHNIQUE: Dynamically enhanced 3 mm thick images of the chest were obtained during administration o f approximately 150mL Isovue 370 IV contrast. Coronal and oblique MIP reconstruction images were gene rated and reviewed. Exam utilizes a protocol to evaluate the pulmonary arterial tree. All CT scans are performed using dose optimization technique as appropriate and may include automated exposure control or mA/KV adjustment according to patient size. FINDINGS: No pulmonary emboli are identified. Pulmonary arterial tree enhance but was not optimal bu t is believed be sufficient for exclusion of significant pulmonary embolic disease. The aorta as imaged shows no acute or suspicious finding. No pericardial thickening or effusion. No acute infiltrate in the lung parenchyma. Patient has extensive postsurgical change to the posterol ateral mid to lower left hemithorax. Graft material is in place where multiple ribs have been resecte d. Provided history indicates tumor removal that is not otherwise specified. A 3 centimeter area soft tissue density is present in the medial posterior mid left chest. There is a 3.5 centimeter soft tissue mass in the medial left apex. The soft tissue mass findings may all be se quela of the remote tumor removal procedure. Relevant remote comparisons would be helpful determine i f these are stable findings. IMPRESSION: No pulmonary emboli identified. Extensive postsurgical change to the post oral lateral left middle or chest wall. Posteromedial mid l eft lung field and in the medial left apex soft tissue masses are present. These are not further juve acterized. This may all be chronic sequela of the left hemithorax surgical changes. Residual or recur rent mass cannot be excluded on this single study. Comparison with any prior CT chest imaging would be helpful if that may become available.
[2021-12-21] MEDS ORDERED: METOPROLOL TAR 25 MG TAB ONE (22:13)
[2021-12-22 02:39] LABS: Absolute Lymphocytes (CBC) 2.6 K/uL (0.7-4.9); Hematocrit 45.3 % (39.6-49.0); MCV 93.4 fL (80-100); MPV 7.8 fL (7.6-11.3); RBC Red Blood Cell Count 4.85 M/uL (4.33-5.43)
[2021-12-22 02:43] LABS: Potassium 3.8 mmol/L (3.5-5.1)
[2021-12-22] MEDS: METOPROLOL TAR 25 MG TAB PO SCH (06:00)
[2021-12-22] MEDS ORDERED: METOPROLOL TAR 25 MG TAB ONE (06:18)
[2021-12-22] MEDS ORDERED: NICOTINE 21 MG/PAT TD ONE (07:27)
[2021-12-22] MEDS ORDERED: ASPIRIN 325 MG TAB ONE (07:28)
[2021-12-22] MEDS: ASPIRIN 325 MG TAB PO SCH (07:44)
[2021-12-22] MEDS: NICOTINE 21 MG/PAT TD SCH (07:44)
[2021-12-22 07:57] VITALS: O2SAT 99
[2021-12-22] MEDS ORDERED: INFLUENZA VACCINE (for 6+ mo) 0.5 ML DOSE IMVAC ONE (08:00)
[2021-12-22 13:00] VITALS: BP 113/56; TEMP 97.7
--- NOTE | 2021-12-22 13:14 | RAD REPORT ---
EXAM DESCRIPTION: MRI - Thoracic Spine W/Wo Contr - 12/22/2021 12:58 pm CLINICAL HISTORY: mass on left lung apex Back pain, radiculopathy COMPARISON: Chest For Pe Angio dated 12/21/2021; Soft Tissue Neck W/Contr dated 09/27/2021 FINDINGS: The vertebral body heights and disc spaces are maintained. Marrow pattern of the thoracic spine is within normal limits. Small disc herniation is present T3-4 attenuating the anterior subarachnoid space. No significant can al or foraminal stenosis seen at any level. No paraspinal mass or hematoma. The thoracic cord is normal in size and signal. There is avidly enhancing mass present left apex medially measuring 4.4 x 3.3 cm. IMPRESSION: Small disc herniation T3-4 centrally. No high-grade canal stenosis or foraminal narrowin g. Avidly enhancing mass low medial left apex measuring 4.4 x 3.3 cm. Differential considerations would include a nerve sheath tumor, pleural-based tumor or lung malignancy/Pancoast tumor.
--- NOTE | 2021-12-22 14:23 | ECHO ---
HEIGHT: 5 ft 11 in WEIGHT: 180 lb 0.119 oz DATE OF STUDY: 12/22/[address]: Kendall Alberto 2-DIMENSIONAL: YES M.MODE: YES DOPPLER: YES COLOR FLOW: YES TDS: PORTABLE: YES DEFINITY: BUBBLE STUDY: DIAGNOSIS: ATRIAL FIBRILLATION/ CHEST PAIN CARDIAC HISTORY: CATHERIZATION: SURGERY: PROSTHETIC VALVE: PACEMAKER: MEASUREMENTS (cm) DIASTOLIC (NORMALS) SYSTOLIC (NORMALS) IVSd 1.0 (0.6-1.2) LA Diam 3.2 (1.9-4.0) LVEF 55% LVIDd 4.4 (3.5-5.7) LVIDs 3.3 (2.0-3.5) %FS 26% LVPWd 1.2 (0.6-1.2) Ao Diam 2.5 (2.0-3.7) 2 DIMENSIONAL ASSESSMENT: RIGHT ATRIUM: NORMAL LEFT ATRIUM: NORMAL RIGHT VENTRICLE: NORMAL LEFT VENTRICLE: NORMAL TRICUSPID VALVE: MILD TRICUSPID REGURGITATION MITRAL VALVE: NORMAL PULMONIC VALVE: NORMAL AORTIC VALVE: NORMAL PERICARDIAL EFFUSION: NONE AORTIC ROOT: NORMAL LEFT VENTRICULAR WALL MOTION: NORMAL DOPPLER/COLOR FLOW: MILD TRICUSPID REGURGITATION COMMENTS: NORMAL LEFT VENTRICULAR EJECTION FRACTION OF 55-60%. NORMAL WALL MOTION. MILD TRICUSPID REGURGITATION. TECHNOLOGIST: SULEMA GARCIA
--- NOTE | 2021-12-22 14:30 | P.DS ---
Admission Date: 12/21/21 Discharge Date: 12/22/21 Disposition: ROUTINE DISCHARGE Discharge Condition: GOOD Reason for Admission: Chest pain and palpitations Consultations: 1. 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 He was admitted to the Medicine service. His evaluation was notable for a d- dimer of 773. His troponin trend was 18.8 -> 17.8 -> 13.3. He was treated with metoprolol with conversion to normal sinus rhythm. His chest x-ray revealed, "no acute cardiopulmonary process. Lower left chest wall deformity is present believed to be part of a remote surgical procedure not detailed in the history. These changes are probably not of acute clinical significance." CT chest angiogram revealed, "no pulmonary emboli identified. Extensive postsurgical change to the post oral lateral left middle or chest wall. Posteromedial mid left lung field and in the medial left apex soft tissue masses are present. These are not further characterized. This may all be chronic sequela of the left hemithorax surgical changes. Residual or recurrent mass cannot be excluded on this single study." I reviewed these findings with on-call radiologist, Dr. Donnelly, who stated that he felt that there was a separate lesion on the left lung apex, which may represent a neural sheath tumor. He advised that we obtain an MRI thoracic spine and refer to neurosurgery. An MRI thoracic spine was obtained, which revealed, "small disc herniation T3-4 centrally. No high-grade canal stenosis or foraminal narrowing. Avidly enhancing mass low medial left apex measuring 4.4 x 3.3 cm. Differential considerations would include a nerve sheath tumor, pleural-based tumor or lung malignancy/Pancoast tumor." He was given a disc with his MRI images and advised to follow-up with his PCP and with Neurosurgery. Prior to him being discharged, he made an appointment with [facility] and we sent copies of records to their facility. In regards to his atrial fibrillation, his [id number] score is 0. I reviewed this with Dr. Mabry, who recommended that he be discharged on metoprolol succinate 25 mg daily and aspirin 81 mg daily. On 12/22/2021, he was seen on rounds and deemed medically stable for discharge. He was discharged with instructions to schedule follow-up appointments with his PCP, Cardiology (Dr. Mabry), and [facility]. He was provided a prescription for metoprolol. He was given the opportunity to ask questions and reported no further questions. Furthermore, all questions were answered to the best of my ability. A copy of this discharge summary will be sent to the above providers to facilitate continuity of care. Today, I personally spent 25 minutes on his case, of which greater than 50% of the time was spent in patient education, counseling, and coordination of care as described above. Vital Signs/Physical Exam: Temp Pulse Resp BP Pulse Ox 97.7 F 61 16 113/56 L 99 12/22/21 12:00 12/22/21 12:00 12/22/21 12:00 12/22/21 12:00 12/22/21 12:00 General: Alert, In no apparent distress, Oriented x3 HEENT: Atraumatic, PERRLA, Mucous membr. moist/pink, EOMI, Sclerae nonicteric Neck: Supple, JVD not distended Respiratory: Clear to auscultation bilaterally, Normal air movement Cardiovascular: No edema, Regular rate/rhythm, Normal S1 S2, No gallops, No rubs, No murmurs Capillary refill: <2 Seconds Gastrointestinal: Normal bowel sounds, Soft and benign, Non-distended, No tenderness, No rebound, No guarding Musculoskeletal: No clubbing, Other (clean well-healed scar in the left lower chest) Integumentary: No rashes Neurological: Normal gait, Normal speech, Normal strength at 5/5 x4 extr, Cranial nerves 3-12 intact, Normal affect Laboratory Data at Discharge: WBC 7.10 K/uL (4.3-10.9) 12/22/21 01:51 Hgb 15.3 g/dL (13.6-17.9) D 12/22/21 01:51 Hct 45.3 % (39.6-49.0) 12/22/21 01:51 Plt Count 305 K/uL (152-406) 12/22/21 01:51 PT 12.2 SECONDS (9.5-12.5) 12/21/21 14:20 INR 1.11 12/21/21 14:20 Sodium 138 mmol/L (136-145) 12/22/21 01:51 Potassium 3.8 mmol/L (3.5-5.1) 12/22/21 01:51 BUN 13 mg/dL (7-18) 12/22/21 01:51 Creatinine 0.74 mg/dL (0.55-1.3) 12/22/21 01:51 Glucose 126 mg/dL (74-106) H 12/22/21 01:51 Phosphorus 3.8 mg/dL (2.5-4.9) 12/21/21 19:23 Magnesium 2.1 mg/dL (1.8-2.4) 12/21/21 19:23 Total Bilirubin 0.6 mg/dL (0.2-1.0) 12/21/21 15:42 AST 19 U/L (15-37) 12/21/21 15:42 ALT 22 U/L (12-78) 12/21/21 15:42 Alkaline Phosphatase 69 U/L (45-117) 12/21/21 15:42 Triglycerides 184 mg/dL (<150) H 12/21/21 19:23 Cholesterol 167 mg/dL (<200) 12/21/21 19:23 HDL Cholesterol 46 mg/dL (40-60) 12/21/21 19:23 Cholesterol/HDL Ratio 3.63 12/21/21 19:23 Home Medications: Aspirin [Aspirin EC 81 MG] 81 mg PO DAILY #1 12/22/21 RX: Metoprolol Succinate [Toprol Xl*] 25 mg PO DAILY #30 tab 12/22/21 New Medications: Aspirin [Aspirin EC 81 MG] 81 mg PO DAILY #1 RX: Metoprolol Succinate [Toprol Xl*] 25 mg PO DAILY #30 tab Physician Discharge Instructions: 1. Please schedule a follow-up appointment with your PCP in 3-5 days 2. Please schedule a follow-up appointment with Cardiology (Dr. Mabry) in 3-5 days 3. Please attend your scheduled appointment with [facility] Diet: Regular Activity: Ad bayron Followup: Agusto Mabry MD [ACTIVE - CAN ADMIT] - Time spent managing pt's care (in minutes): 25
--- NOTE | 2021-12-22 14:32 | EKG ---
Test Date: 2021-12-21 Test Time: 15:44:08 Director Of Social Media Marketing: TRANG MEASUREMENT RESULTS: Intervals: Rate: 91 [place]: QRSD: 96 QT: 350 QTc: 430 [place]: P: [place]: QRS: 53 T: 32 INTERPRETIVE STATEMENTS: Atrial fibrillation Nonspecific ST abnormality Abnormal ECG Compared to ECG 12/21/2021 14:10:21 ST (T wave) deviation now present Electronically Signed On 12-22-21 14:29:16 CDT by Agusto Mabry
--- NOTE | 2021-12-22 14:33 | EKG ---
Test Date: 2021-12-21 Test Time: 14:10:21 Regulatory Affairs Director: PETER MEASUREMENT RESULTS: Intervals: Rate: 112 [place]: QRSD: 88 QT: 306 QTc: 417 [place]: P: [place]: QRS: 64 T: 44 INTERPRETIVE STATEMENTS: Atrial fibrillation with rapid ventricular response Abnormal ECG Compared to ECG 09/27/2021 09:35:38 Sinus bradycardia no longer present Myocardial infarct finding no longer present Electronically Signed On 12-22-21 14:30:06 CDT by Agusto Mabry
[2021-12-22] MEDS ORDERED: ENOXAPARIN 40 MG/0.4 ML SQ SCH (17:00)
--- NOTE | 2021-12-22 19:17 | CON ---
Date of Consultation: 12/22/2021 Reason For Consultation: Atrial fibrillation. History Of Present Illness: A 26-year-old male with history of paroxysmal atrial fibrillation. Cehla ley had a tumor resection from his chest that was pushing the heart and the mesh was placed. It i s irritating the heart, so he is going into AFib periodically, so yesterday he had this palpitation f terry that went through his chest to his throat, some chest discomfort, came to the emergency room, was in atrial fibrillation with rapid ventricular response, after slowing down the heart converted t o sinus rhythm and he is asymptomatic. Past Medical History: Atrial fibrillation. Medications: Refer to reconciliation sheet for detailed list. Allergies: PENICILLIN. Family History: No premature coronary artery disease or cancer. Social History: He smokes. Does not drink or use any drugs. Review of Systems: All systems reviewed and they were negative except what mentioned in HPI. Physical Examination: Vital Signs: Temperature is 97.3, pulse 66, breathing at 14, blood pressure 113/63, saturating 96% o n room air. General: Pleasant young male, in no apparent distress. Head and Neck: Pupils are equal, reactive to light. Intact eye movements. No JVD. No cervical lym phadenopathy. Neck is supple. Thyroid is not enlarged. Lungs: Clear to auscultation bilaterally. No rhonchi, wheezing, or crackles. No accessory muscle u se. Heart: Regular rate and rhythm. No extra sounds. Abdomen: Soft, nontender. Bowel sounds positive. No organomegaly. No masses or hernia. No rigidi ty or rebound. Extremities: No edema, clubbing or cyanosis. Intact pulses. Skin: No rash. Neurologic: Alert, awake, oriented x3. No acute focal deficits appreciated. Investigations: Labs were reviewed. Echo was normal. Assessment And Recommendations: 1.Atrial fibrillation with rapid ventricular response. This is paroxysmal atrial fibrillation, like ly due to irritation after surgery in the chest. Keep him on Toprol-XL 25 mg daily, baby aspirin 81 mg daily. Follow up with me as an outpatient. 2.Chest pain. Troponins are negative and this is just because of the fast heart rate and no need fo r any further ischemia workup unless he gets chest pains with activities. SR/MODL Voice ID: [id number] Report ID: [id number]
== END 2021-12-22 14:50 | disposition home or self-care (01) | DRG 313 ==
LOC: ER 13:51 → ERHOLD 17:38
PROVIDERS: ADMIT Internal Medicine; ATTEND Internal Medicine
DX: R07.89 Other chest pain (principal); M62.82 Rhabdomyolysis; I48.0 Paroxysmal atrial fibrillation; E78.5 Hyperlipidemia, unspecified; F17.210 Nicotine dependence, cigarettes, uncomplicated; R91.1 Solitary pulmonary nodule; R79.89 Other specified abnormal findings of blood chemistry; Z88.0 Allergy status to penicillin; Z79.82 Long term (current) use of aspirin; Z28.310 Unvaccinated for COVID-19; Z20.822 Contact with and (suspected) exposure to COVID-19
CPT/HCPCS: 36415; 71045; 71275; 72157; 80048; 80061; 80076; 80307; 81003; 82550; 83036; 83735; 83880; 84100; 84439; 84443; 84484; 85025; 85379; 85610; 87811; 93005; 93306; 96361; 96374; 96375; 99285; A9577; J2405; J7030; Q9967

== ENCOUNTER 2022-02-01 13:22 | Emergency (ER) | payer OTHER ==
--- OUTSIDE RECORDS SUMMARY | 2022-02-01 13:27 | XMS REPORT | Continuity of Care Document ---
:1995 Author Organization [facility] t Address [address] [place] [address] Care Team Providers Name Role Phone Georgie Gann MD Primary Care Physician King JOI MD, James C Attending Clinician Unknown, Attending Attending Clinician Unavailable SE DAVE III Attending Clinician Unavailable GEORGIE GANN Attending Clinician Unavailable Pob, Adc Lab Main Attending Clinician Unavailable Richie Raymond Attending Clinician RICHIE BOSE Attending Clinician Unavailable Iqra Valdivia Attending Clinician RAINA BATES Attending Clinician Unavailable Raina Bates PA-C Attending Clinician Laura Vincent Attending Clinician FARZANA COLEMAN Attending Clinician Unavailable Farzana Vaz Attending Clinician Mima Haney Attending Clinician Doctor Unassigned, [place] Attending Clinician Unavailable ROX MUIR Attending Clinician Unavailable SHAI WILD Attending Clinician Unavailable Lab, Adc Fam Pob I Attending Clinician Unavailable Chad Dash MD Attending Clinician CHAD DASH Attending Clinician Unavailable Tesha Ivory Attending Clinician Rox Muir MD Attending Clinician Provider, [facility] Attending Clinician Unavailable UNKNOWN, ATTENDING Attending Clinician Unavailable MIMA NAPIER Attending Clinician Unavailable Payers Payer Name Policy Type Policy Number Effective Date Expiration Date Vaishali carlos [facility] [id number] 2020 GLOBAL 00:00:00 Problems Condition Condition Condition Status Onset Resolution Last Treating Co mments Source Name Details Category Date Date Treatment Clinician Date Other Other Disease Active Univers hemorrhoid hemorrhoid 10-13 it y of s s 00:00: Medical [place] Allergies, Adverse Reactions, Alerts Allergy Allergy Status Severity Reaction(s) Onset Inactive Treating Comm ents Source Name Type Date Date Clinician PENICILL DRUG Active High Anaphylaxis Uni vers IN INGREDI 3-13 ity of 00:00: 00 [facility] Penicill Propensi Active Anaphylaxis U nivers in ty to 313 ity of adverse 00:00: [place] reaction 00 Medical s [place] Social History Social Habit Start Date Stop Date Quantity Comments Source History [facility] University o f Alcohol Frequency [facility] Branch History [facility] o f Alcohol Std Drinks [facility] History [facility] o f Alcohol Binge [facility] al [place] History of tobacco Cigarette Smoker University of use [facility] Exposure to 2022-01-22 2022-02-01 Not sure University SARS-CoV-2 (event) 00:00:00 10:57:00 [facility] Alcohol intake 2022-02-01 2022-02-01 Ex-drinker University 00:00:00 00:00:00 (finding) [facility] Alcohol Comment 2021-10-13 2021-10-13 Has a beer once Univ ersity of 00:00:00 00:00:00 a week [facility] Cigarettes smoked 2021-10-13 2021-10-13 Univers ity of current (pack per 00:00:00 00:00:00 [facility] ) - Reported Branch Cigarette 2021-10-13 2021-10-13 University of pack-years 00:00:00 00:00:00 [facility] Tobacco use and 2021-10-13 2021-10-13 Smokeless Universit y of exposure 00:00:00 00:00:00 tobacco non-user [facility] Sex Assigned At [birth year] Universit y of 00:00:00 00:00:00 [facility] Smoking Status Start Date Stop Date Source Smokes tobacco daily 2021-10-13 00:00:00 Univers ity of [facility] Medications Ordered Filled Start Stop Current Ordering Indication Dosage Frequency Signature Comments Components Source Medication Medication Date Date Medication? Clinician (SIG) Name Name doxycycline 2021-02 Yes [id number] 100mg Take 1 Univers monohydrate 2-07 capsule by it y of 100 mg 00:00: mouth in [place] capsule 00 the Medical morning Branch and 1 capsule in the evening. mupirocin 2 2021-02 Yes [id number] Apply to Univers % ointment 04-04 area(s) 3 ity of 00:00: (three) [place] 00 times Medical daily. Branch acyclovir 2021-02- Yes [id number] 800mg Take 1 Univers 800 mg 04-04 12-15 tablet by ity of tablet 00:00: 05:59 mouth 5 [place] 00 :00 (five) Medical times [place] daily for 7 days. ibuprofen Yes [id number] 600mg Take 1 Univers 600 mg 8-18 [id number] tablet by ity of tablet 00:00: mouth [place] 00 every 6 Medical (six) Branch hours as needed for Pain (scale 4-6) (Pain). ibuprofen Yes [id number] 600mg Take 1 Univers 600 mg 8-18 [id number] tablet by ity of tablet 00:00: mouth [place] 00 every 6 Medical (six) Branch hours as needed for Pain (scale 4-6) (Pain). ibuprofen Yes [id number] 600mg Take 1 Univers 600 mg 8-18 [id number] tablet by ity of tablet 00:00: mouth [place] 00 every 6 Medical (six) Branch hours as needed for Pain (scale 4-6) (Pain). ibuprofen Yes [id number] 600mg Take 1 Univers 600 mg 8-18 [id number] tablet by ity of tablet 00:00: mouth [place] 00 every 6 Medical (six) Branch hours as needed for Pain (scale 4-6) (Pain). Immunizations Ordered Filled Immunization Date Status Comments [facility] e Immunization Name Name HPV9 2021-10-13 Completed University 00:00:00 [facility] HPV9 2021-10-13 Completed University of 00:00:00 [facility] 2021-10-13 Completed University of 00:00:00 [facility] 2021-10-13 Completed [facility] 00:00:00 [facility] Vital Signs Vital Name Observation Time Observation Value Comments Source Systolic blood 2022-02-01 17:30:00 115 mm[Hg] [facility] Diastolic blood 2022-02-01 17:30:00 56 mm[Hg] [facility] rate 2022-02-01 17:30:00 73 /min [facility] Body temperature 2022-02-01 17:30:00 37.06 [facility] Respiratory rate 2022-02-01 17:30:00 18 /min [facility] Body height 2022-02-01 17:30:00 180.3 cm [facility] Body weight 2022-02-01 17:30:00 82.781 kg [facility] BMI 2022-02-01 17:30:00 25.45 kg/m2 [facility] Oxygen saturation in 2022-02-01 17:30:00 99 /min [facility] Arterial blood by [facility] Pulse oximetry Branch Procedures Procedure Date / Time Performing Clinician Source Performed US SCROTUM AND CONTENTS 2021-10-21 14:53:57 [facility] THYROID STIMULATING 2021-10-21 13:56:00 [facility] HORMONE [facility] COMP. METABOLIC PANEL 2021-10-21 13:56:00 [facility] ([id number]) Medical Branch LIPID PANEL 2021-10-21 13:56:00 [facility] ([id number])(TOTAL [facility] CHOLESTEROL, TRIGLYCERIDES, HDL) HIV 1/2 AG-AB WITH 2021-10-21 13:56:00 [facility] REFLEX [facility] Plan of Care Planned Activity Planned Date Details Comments Source Encounters Start End Encounter Admission Attending Care Care Encounter Source Date/Time Date/Time Type Type Clinicians Facility Department ID 2022-02-01 2022-02-01 Urgent Se Dave [email or web address] [id number] Univers 11:00:00 11:20:00 Care Unknown, [facility] HEALTH [id number] ity [facility] [id number] [place] as LIZBET?BLEA [id number] Md harman [address] [place] MEDICAL OFFICE [facility] 2022-02-01 2022-02-01 Outpatient R GAYATHRI III, [facility] [id number] Univers 11:00:00 11:00:00 SE [facility] 2021-12-13 2021-12-13 Outpatient [facility] [id number] Univers 09:00:00 09:00:00 [facility] 2021-12-13 2021-12-13 Outpatient R [facility] [id number] Univers 09:00:00 09:00:00 [facility] 2021-10-25 2021-10-25 [facility] [id number] Univers 00:00:00 00:00:00 [facility] [id number] ity [facility] [id number] [place] as LIZBET?BLEA [id number] Md harman [address] 044 [facility] OFFICE [facility] 2021-10-21 2021-10-21 [facility] [id number] Univers 08:33:30 23:59:00 Encounter Georgie [place] [id number] ity [facility] [id number] [place] [id number] [facility] 806 [place] 2021-10-21 2021-10-21 Outpatient R [facility] [id number] Univers 08:33:30 23:59:00 [facility] 2021-10-21 2021-10-21 Unit Coordinator Joseph, [facility] Main [facility] [[email or web address]] [id number] Univers 09:45:00 10:00:00 Visit Kristophermiguel Georgie [place] [id number] ity [facility] [id number] [place] [facility] [id number] [facility] 353 [facility] 2021-10-21 2021-10-21 Outpatient R SANJUANITA [facility] [id number] Univers 09:45:00 09:45:00 [facility] 2021-10-13 2021-10-13 [facility] 1.2.840.114 [id number] Univers 10:40:00 11:58:11 Visit [facility] [id number] ity of [place] [id number] [place] as LIZBET?BLEA [id number] Md harman [address] 044 [facility] OFFICE [facility] 2021-10-13 2021-10-13 [facility] [id number] Univers 10:40:00 11:58:11 [facility] 2021-10-13 2021-10-13 Outpatient [facility] [id number] Univers 10:40:00 11:58:11 [facility] 2021-10-13 2021-10-13 Outpatient R SANJUANITA, [facility] [id number] Univers 10:40:00 10:40:00 [facility] 2021-10-13 2021-10-13 [facility] 1.2.840.114 [id number] Univers 09:15:00 09:50:13 Visit [facility] [id number] it y of [place] [id number] Sampson as LIZBET?BLEA [id number] Md harman [address] 198 [facility] OFFICE [facility] 2021-10-13 2021-10-13 Outpatient [facility] [id number] Univers 09:15:00 09:15:00 [facility] 2021-10-02 2021-10-02 [facility] [id number] Univers 13:17:24 23:59:00 Encounter [facility] [id number] ity of [place] [id number] Sampson as LIZBET?BLEA [id number] Md harman [address] 808 [facility] OFFICE [facility] 2021-10-02 2021-10-02 [facility] [id number] Univers 13:17:24 23:59:00 Encounter Shinpresley HEALTH [id number] ity of [place] [id number] [place] as LIZBET?BLEA [id number] [facility] 808 [place] MEDICAL OFFICE [facility] 2021-10-02 2021-10-02 Outpatient [facility] [id number] Univers 12:20:00 13:27:49 RAINA ity [facility] 2021-10-02 2021-10-02 [facility] [id number] Univers 12:20:00 13:27:49 Care Raina Bates [facility] [id number] ity of [place] [id number] Sampson as LIZBET?BLEA [id number] [facility] 370 [facility] OFFICE [facility] 2021-08-02 2021-08-02 Telephone [facility] 1.2.840.114 [id number] Univers 00:00:00 00:00:00 Rannc HEALTH [id number] it y of [place] [id number] [place]pson as LIZBET?BLEA [id number] [facility] 370 [facility] OFFICE [facility] 2021-07-31 2021-07-31 Outpatient R [facility] [id number] Univers 13:44:56 23:59:00 OMALMAI ity [facility] 2021-07-31 2021-07-31 [facility] 1.2.840.114 [id number] Univers 13:44:56 23:59:00 Encounter [facility] [id number] ity of [place] [id number] [place]pson as LIZBET?BLEA [phone] [facility] 808 [facility] OFFICE [facility] 2021-07-31 2021-07-31 Urgent [place] [facility] 1.2.840. 114 [id number] Univers 13:40:00 14:48:13 Care Mima Napier [facility] [id number] ity of [place] 4.2.7.2.686 [place]pson as LIZBET?BLEA [id number] Md harman [address] 370 [place] MEDICAL OFFICE BUILDING 2021-07-31 2021-07-31 Orders Doctor RAINA 1.2.840.114 [id number] Univers 00:00:00 00:00:00 Only Unassigned, GOMEZ [id number] ity of [place] [facility] [id number] Sampson as [id number] [facility] 009 [place] 2021-04-29 2021-04-29 Outpatient [facility] [id number] Univers 19:00:00 19:06:29 ROX miguel [facility] 2020-11-04 2020-11-04 Outpatient [facility] [id number] Univers 13:30:00 13:30:00 SHAI menon [facility] 2020-10-22 2020-10-22 Letter Doctor RAINA 1.2.840.114 [id number] Univers 00:00:00 00:00:00 (Out) Unassigned, GOMEZ [id number] ity of [place] [facility] [id number] Sampson as [phone] [address] 2020-10-22 2020-10-22 Letter Doctor RAINA 1.2.840.114 [id number] Univers 00:00:00 00:00:00 (Out) Unassigned, GOMEZ 350.1.13.10 ity of [place] [facility] 4.2.7.2.686 Sampson as [phone] [address] 2020-09-19 2020-09-19 Laboratory Lab, Adc Fam Pob I [facility] [[email or web address]] 1.2. [id number] [id number] Univers 16:47:20 17:07:20 Only [facility] 350.1.13. 10 ity of [place] [id number] Sampson as Professio [phone] Md harman [facility] 044 [place] [address] One 2020-09-19 2020-09-19 Outpatient R HARDY [facility] [id number] Univers 16:40:00 16:40:00 , CHAD menon [facility] 2020-09-10 2020-09-10 Telephone Colleen, [facility] [[email or web address]] [id number] Univers 00:00:00 00:00:00 Tesha Seth [facility] [id number] ity of [place] 4.2.7.2.686 Sampson as Professio [phone] [address] Office [facility] One 2020-09-09 2020-09-09 Laboratory Lab, Adc Fam Pob I [facility] [[email or web address]] 1.2. 840.114 [id number] Univers 20:00:48 20:20:48 Only Rox Muir [facility] [id number] ity of [place] 4.2.7.2.686 Sampson as Professio [phone] [address] One 2020-09-09 2020-09-09 Outpatient [facility] [id number] Univers 20:00:00 20:00:00 ROX [facility] 2020-07-26 2020-07-26 Urgent Provider, [facility] [[email or web address]] 1.2.840.114 [id number] Univers 13:26:34 13:41:05 Care Unknown, [facility] 350.1.13.10 ity of [place] Mima [place] 4.2.7.2.686 [place] Professio [phone] [address] One 2020-07-26 2020-07-26 Outpatient R GAYLA, [facility] [id number] Univers 13:40:00 13:40:00 ATTENDING ity [facility] 2020-07-11 2020-07-11 Urgent Provider, [facility] [[email or web address] [id number] [id number] Univers 14:29:52 15:27:13 Care Mima Napier [facility] 350.1.13.10 ity of [place] 4.2.7.2.686 Sampson as Professio [id number] [address] Office [facility] One 2020-07-11 2020-07-11 Outpatient R [facility] [id number] Univers 14:40:00 14:40:00 ity of [facility] 2020-07-11 2020-07-11 Orders Doctor RAINA 1.2.840.114 [id number] 00:00:00 00:00:00 Only Unassigned, GOMEZ 350.1.13.10 ity of [place] [facility] 4.2.7.2.686 Sam[place] as [phone] [address] 2020-05-08 2020-05-08 Urgent [facility] 1.2.840.114 [id number] 13:23:37 13:43:37 Care Tesha [facility] 350.1.13.10 [place] 4.2.7.2.686 Professio [phone] [place] [address] [address] 2020-05-08 2020-05-08 Urgent Tesha Macias [facility] 1.2.840 .114 [id number] Univers 13:23:37 13:43:37 Care Quyen [facility] 350.1.13.10 ity of [place] 4.2.7.2.686 [place]pson as Professio [phone] Md dical [address] Office [address] One 2020-05-08 2020-05-08 Outpatient R [facility] [id number] Univers 13:00:00 13:00:00 [facility] Results Test Description Test Time Test Comments Results Result Comments Source HIV 1/2 AG-AB WITH REFLEX 2021-10-21 15:46:08 Test Item Value Reference Range Interpretation Comme nts HIV Semi-quantitative (test code = Negative Negative [id number]) GIANCARLO (test code = GIANCARLO) Non-reactive for HIV-1 antigen and HIV-1/HIV-2 antibodies. ?No laboratory evidence of HIV infection. ?Repeat in 2-4 weeks if acute HIV infection is suspected. [facility] [id number] 15:36:47 Test Item Value Reference Range Interpretation Comments TSH (test code = See_Comment [Automated message] [id number]) The system barter.li generated this result transmitted ref erence range: 0.45 - 4 .70 mIU/L. The refe rence range was not u sed to interpret this result as normal/abnor mal. Lab Interpretation (test Normal code = 29868-4) [facility]. METABOLIC PANEL (22937)2021-10-21 15:06:22 Test Item Value Reference Range Interpretation Comments NA (test code = 139 mmol/L 135-145 [id number]) K (test code = 4.5 mmol/L 3.5-5 3777364652) CL (test code = 105 mmol/L 98-108 6464768323) CO2 TOTAL (test code 28 mmol/L 23-31 = 0172461956) AGAP (test code = 2-16 0112523867) BUN (test code = 16 mg/dL 7-23 2823661827) GLUCOSE (test code = 98 mg/dL 70-110 9523694538) CREATININE (test code 0.73 mg/dL 0.6-1.25 = 6316202567) TOTAL BILI (test code 0.5 mg/dL 0.1-1.1 = 7245863010) CALCIUM (test code = 9.5 mg/dL 8.6-10.6 9676837148) T PROTEIN (test code 6.5 g/dL 6.3-8.2 = 2966953393) ALBUMIN (test code = 4.5 g/dL 3.5-5 0933721291) ALK PHOS (test code = 74 U/L 34-122 4894400787) ALTv (test code = 16 U/L 5-50 1742-6) AST(SGOT) (test code 22 U/L 13-40 = 5828234346) eGFR (test code = mL/min/1.73m2 7848122210) GIANCARLO (test code = GIANCARLO) Association of [...] or urine or abnormalities in imaging tests). [place] [facility] (32323)(TOTAL CHOLESTEROL, TRIGLYCERIDES, HDL)2021-10-21 15:06:22 Test Item Value Reference Range Interpretation Comments CHOL (test code = 173 mg/dL 120-200 0690823703) HDL (test code = 50 mg/dL See_Comment [Automated message] [id number]) The system [email or web address] generated this result transmit gwen reference range : >=40. The refer ence range was not u sed to interpret th is result as normal/abnormal . HDLC RATIO (test code = See_Comment [Au tomated message] [id number]) The system [email or web address].li generated this result transmit gwen reference range : <=5.0. The refe rence range was not u sed to interpret th is result as normal/abnormal . TRIG (test code = 131 mg/dL 30-170 7610778645) LDL CHOL (test code = 97 mg/dL See_Comment [Auto mated message] 69730-9) The system [email or web address].li generated this result transmit gwen reference range : <=160. The refe rence range was not u sed to interpret th is result as normal/abnormal . VLDL (test code = 26 mg/dL 5-60 0323659392) Lab Interpretation (test Normal code = 10725-4) [facility]"
--- NOTE | 2022-02-01 14:25 | EDPHYS ---
Physician Documentation [facility] Name: Huseyin Winkler Age: 26 yrs Sex: Male : 1995 Arrival Date: 02/01/2022 Time: 13:25 Bed DIS3 Private MD: ED Physician Theodore Burden HPI: 02/01 14:18 This 26 yrs old Male presents to ER via Ambulatory with complaints of jmm Medication Refill. 14:18 The patient presents to the emergency department requesting refill(s) for: Metoprolol. jmm The patient chronically suffers from Atrial fibrillation. 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 14:18 All other systems are negative. Exam: 14:18 Constitutional: This is a well developed, well nourished patient who is awake, alert, jmm and in no acute distress. Head/Face: atraumatic. Eyes: EOMI, no conjunctival erythema appreciated ENT: Moist Mucus Membranes Neck: Trachea midline, Supple Chest/axilla: Normal chest wall appearance and motion. Cardiovascular: Regular rate and rhythm. No edema appreciated Respiratory: Normal respirations, no respiratory distress appreciated Abdomen/GI: Non distended Back: Normal ROM Skin: General appearance color normal MS/ Extremity: Moves all extremities, no obvious deformities appreciated, no edema noted to the lower extremities Neuro: Awake and alert Psych: Behavior is normal, Mood is normal, Patient is cooperative and pleasant Vital Signs: 14:25 BP 134 / 56; Pulse 72; Resp 16; Temp 98.1; Pulse Ox 100% on R/A; iw MDM: 14:18 Patient medically screened. [facility] 14:23 Data reviewed: vital signs, nurses notes. Counseling: I had a detailed discussion with jmdionte the patient and/or guardian regarding: the historical points, exam findings, and any diagnostic results supporting the discharge/admit diagnosis, the need for outpatient follow up, to return to the emergency department if symptoms worsen or persist or if there are any questions or concerns that arise at home. Administered Medications: No medications were administered Disposition: 18:42 Co-signature as Attending Physician, Theodore Burden MD. rn Disposition Summary: 02/01/22 14:25 Discharge Ordered Location: Home [facility] Condition: Stable [facility] Diagnosis - Medication Refill [facility] Followup: [facility] - With: Private Physician - When: 2 - 3 days - Reason: Recheck today's complaints, Continuance of care, Re-evaluation by your physician Discharge Instructions: - Discharge Summary Sheet [facility] Forms: - Medication Reconciliation Form [facility] - Thank You Letter [facility] - Antibiotic Education [facility] - Prescription Opioid Use [facility] Prescriptions: - metoprolol succinate 25 mg Oral capsule,sprinkle,ER 24hr - take 1 capsule by ORAL route once daily; 30 capsule; Refills: 0, Product [facility] Selection Permitted Signatures: Linus Daugherty PA PA jmm Williams, Irene, RN RN iw Theodore Burden MD MD rn
--- NOTE | 2022-02-01 14:35 | ER ---
Nurse's Notes [facility] Name: Huseyin Winkler Age: 26 yrs Sex: Male : 1995 Arrival Date: 02/01/2022 Time: 13:25 Bed DIS3 Private MD: Diagnosis: Medication Refill Presentation: 02/01 14:25 Chief complaint: Patient states: has been out of his metoprolol X 5 days, needs refill iw , has hx of afib and tumor. Coronavirus screen: At this time, the client does not indicate any symptoms associated with coronavirus-19. Ebola Screen: Patient negative for fever greater than or equal to 101.5 degrees Fahrenheit, and additional compatible Ebola Virus Disease symptoms Patient denies exposure to infectious person. Patient denies travel to an Ebola-affected area in the 21 days before illness onset. No symptoms or risks identified at this time. Initial Sepsis Screen: Does the patient meet any 2 criteria? No. Patient's initial sepsis screen is negative. Does the patient have a suspected source of infection? No. Patient's initial sepsis screen is negative. Risk Assessment: Do you want to hurt yourself or someone else? Patient reports no desire to harm self or others. Onset of symptoms was February 01, 2022. 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 rg4 14:14 [facility] 14:14 Theodore Burden MD is Attending Physician. [facility] 14:26 Triage completed. 14:26 Arm band placed on. 14:35 Anca Jimenes, RN is Primary Nurse. Administered Medications: No medications were administered Outcome: 14:25 Discharge ordered by . [facility] 14:35 Patient left the ED. Signatures: Linus Daugherty PA PA jmm Williams, Irene, RN RN iw Ruth Middleton rg4
[2022-02-01 17:17] VITALS: BP 134/56; TEMP 98.1; O2SAT 100
== END 2022-02-01 14:35 | disposition home or self-care (01) ==
LOC: ER 13:22
DX: Z76.0 Encounter for issue of repeat prescription (principal)
CPT/HCPCS: 99281